=== PATIENT | male | born 1930 | race Caucasian/White ===

== ENCOUNTER → 2016-12-21 | Outpatient (CLI) | payer OTHER ==
[~2016-12-21] MED LIST: ASPCH81 PO; ATOR10TA82 PO; CLR10 PO; ENAL10TA88 PO; GLC500 PO; MULT-506 PO; VITA400C15 PO
[2016-12-21 13:17] LABS: BASO % 0.4 %; BASO ABS # 0.04 K/uL (0-0.2); COMPLETE YES; EOS % 3.5 %; HEMATOCRIT 44.1 % (42-52); IG% 0.9 %; LYMPH % 15.7 %; LYMPH ABS # 1.45 K/uL (1.2-3.4); MEAN CELL VOLUME 96.3 fL (80-100); MEAN CORPUSCULAR HEMOGLOBIN 31.4 pg (25-34); MEAN CORPUSCULAR HGB CONC 32.7 g/dl (32-36); MEAN PLATELET VOLUME 9.9 fL (7.4-10.4); MONO % 11.5 %; PLATELET COUNT 284 K/uL (130-400); RED BLOOD COUNT 4.58 M/uL (4.7-6.1); WHITE BLOOD COUNT 9.22 K/uL (4.8-10.8)
[2016-12-21 13:26] LABS: ALT/SGPT 29 U/L (12-78); BLOOD UREA NITROGEN 17 mg/dl (7-18); BUN/CREATININE RATIO 16.9 (10-20); CARBON DIOXIDE 33 mmol/L (21-32); CHLORIDE 99 mmol/L (98-107); GLUCOSE 139 mg/dl (70-99); POTASSIUM 4.1 mmol/L (3.5-5.1); SODIUM 139 mmol/L (136-145)
[2016-12-21 13:30] LABS: ALB/GLOB RATIO 1.1 (0.9-2); ALKALINE PHOSPHATASE 103 U/L (45-117); AST/SGOT 16 U/L (15-37)
[2016-12-21 13:32] LABS: ESTIMATED AVERAGE GLUCOSE 148 mg/dl; HA1C FLAG Normal (Normal)
[2016-12-21 13:39] LABS: CALCIUM 9.6 mg/dl (8.5-10.1)
== END | disposition home or self-care (01) ==
LOC: C.LABBFT 08:24
PROVIDERS: ATTEND Internal Medicine
DX: E11.9 Type 2 diabetes mellitus without complications (principal); G40.909 Epilepsy, unspecified, not intractable, without status epilepticus

== ENCOUNTER → 2017-06-27 | Outpatient (CLI) | payer OTHER ==
[2017-06-27 12:15] LABS: BASO % 0.3 %; BASO ABS # 0.03 K/uL (0-0.2); COMPLETE YES; EOS % 3.6 %; HEMATOCRIT 42.2 % (42-52); IG% 0.6 %; LYMPH % 13.1 %; LYMPH ABS # 1.24 K/uL (1.2-3.4); MEAN CELL VOLUME 96.6 fL (80-100); MEAN CORPUSCULAR HGB CONC 33.2 g/dl (32-36); MEAN PLATELET VOLUME 9.9 fL (7.4-10.4); MONO % 12.5 %; NEUT % 69.9 %; PLATELET COUNT 270 K/uL (130-400); RED BLOOD COUNT 4.37 M/uL (4.7-6.1); WHITE BLOOD COUNT 9.45 K/uL (4.8-10.8)
[2017-06-27 12:30] LABS: ESTIMATED AVERAGE GLUCOSE 166 mg/dl; HA1C FLAG Normal (Normal)
[2017-06-27 12:40] LABS: ALT/SGPT 34 U/L (12-78); AST/SGOT 15 U/L (15-37); BLOOD UREA NITROGEN 15 mg/dl (7-18); BUN/CREATININE RATIO 14.7 (10-20); CALCIUM 8.8 mg/dl (8.5-10.1); CARBON DIOXIDE 31 mmol/L (21-32); CHLORIDE 98 mmol/L (98-107); CREATININE 1.02 mg/dl (0.60-1.40); GLUCOSE 161 mg/dl (70-99); SODIUM 138 mmol/L (136-145)
[2017-06-27 12:51] LABS: ALB/GLOB RATIO 0.9 (0.9-2); ALKALINE PHOSPHATASE 98 U/L (45-117); CHOLESTEROL 184 mg/dl (0-200); CHOLESTEROL/HDL RATIO 3.3; HDL CHOLESTEROL 55 mg/dl; LDL CHOLESTEROL CALCULATED 97 mg/dl; TRIGLYCERIDES 160 mg/dl (0-150); VERY LOW DENSITY LIPOPROT CALC 32 mg/dl
== END | disposition home or self-care (01) ==
LOC: C.LABBFT 08:22
PROVIDERS: ATTEND Internal Medicine
DX: G40.909 Epilepsy, unspecified, not intractable, without status epilepticus (principal); E11.9 Type 2 diabetes mellitus without complications; E78.00 Pure hypercholesterolemia, unspecified

== ENCOUNTER → 2017-07-02 | Outpatient (CLI) | payer OTHER ==
[2017-07-02 17:55] LABS: URINE APPEARANCE CLEAR (CLEAR); URINE COLOR DK YELLOW; URINE EPITHELIAL CELL AUTO >30 /lpf (0-5); URINE NITRITE NEG (NEG); URINE SPECIFIC GRAVITY 1.023 (1.000-1.030); UROBILINOGEN NEG (NEG); ZZUR CULT IF INDIC CLEAN CATCH NO
[2017-07-02 18:00] LABS: MANUAL MICROSCOPIC REQUIRED? NO; REVIEW REQ? NO; URINE BILIRUBIN NEG (NEG)
[2017-07-02 18:19] LABS: RATIO 34.7 mcg/mg (0-30.0)
== END | disposition home or self-care (01) ==
LOC: C.LABSPEC 13:33
PROVIDERS: ATTEND Internal Medicine
DX: E11.9 Type 2 diabetes mellitus without complications (principal)

== ENCOUNTER → 2017-07-04 | Outpatient (CLI) | payer OTHER ==
[2017-07-04 12:48] LABS: MANUAL MICROSCOPIC REQUIRED? NO; REVIEW REQ? NO; URINE APPEARANCE CLEAR (CLEAR); URINE BILIRUBIN NEG (NEG); URINE COLOR YELLOW; URINE NITRITE NEG (NEG); URINE SPECIFIC GRAVITY 1.012 (1.000-1.030); UROBILINOGEN NEG (NEG)
== END | disposition home or self-care (01) ==
LOC: C.LABBFT 09:21
PROVIDERS: ATTEND Physician Assistant Medical
DX: N39.0 Urinary tract infection, site not specified (principal)

== ENCOUNTER → 2017-12-25 | Outpatient (CLI) | payer OTHER ==
[2017-12-25 12:32] LABS: BASO % 0.3 %; BASO ABS # 0.03 K/uL (0-0.2); EOS % 3.2 %; EOS ABS # 0.28 K/uL (0-0.5); HEMATOCRIT 42.4 % (42-52); HEMOGLOBIN 14.8 g/dL (14.0-18.0); IG# 0.04 K/uL (0.00-0.02); LYMPH % 16.5 %; LYMPH ABS # 1.44 K/uL (1.2-3.4); MEAN CELL VOLUME 94.2 fL (80-100); MEAN CORPUSCULAR HEMOGLOBIN 32.9 pg (25-34); MEAN CORPUSCULAR HGB CONC 34.9 g/dl (32-36); MONO % 10.9 %; MONO ABS # 0.95 K/uL (0.11-0.59); NEUT % 68.6 %; PLATELET COUNT 271 K/uL (130-400); RED CELL DISTRIBUTION WIDTH CV 13.1 % (11.5-14.5); WHITE BLOOD COUNT 8.74 K/uL (4.8-10.8)
[2017-12-25 12:56] LABS: HEMOGLOBIN A1C 7.9 % (4.5-5.6)
[2017-12-25 13:02] LABS: ALBUMIN 3.7 gm/dl (3.4-5.0); ALT/SGPT 29 U/L (12-78); AST/SGOT 16 U/L (15-37); BLOOD UREA NITROGEN 16 mg/dl (7-18); CALCIUM 8.7 mg/dl (8.5-10.1); CARBON DIOXIDE 34 mmol/L (21-32); CREATININE 1.05 mg/dl (0.60-1.40); GLUCOSE 165 mg/dl (70-99); SODIUM 135 mmol/L (136-145)
[2017-12-25 13:05] LABS: ALKALINE PHOSPHATASE 93 U/L (45-117); TOTAL PROTEIN 7.5 gm/dl (6.4-8.2)
== END | disposition home or self-care (01) ==
LOC: C.LABBFT 08:13
PROVIDERS: ATTEND Internal Medicine
DX: G40.909 Epilepsy, unspecified, not intractable, without status epilepticus (principal); E11.9 Type 2 diabetes mellitus without complications

== ENCOUNTER → 2018-03-07 | Outpatient (CLI) | payer OTHER ==
[~2018-03-07] MED LIST changes: -ASPCH81 PO; +ASPCH81X PO; +DILT-115 PO; +DLN100 PO; +DPKSR250 PO; +DVN/160 PO; -ENAL10TA88 PO; +ESCI1TAB6 PO; +HYDR12.55 PO; +NITR1CAP33 PO; +QUET1TAB30 PO; -VITA400C15 PO; +VITA400C49 PO
[2018-03-07 17:42] LABS: BLOOD UREA NITROGEN 13 mg/dl (7-18); CALCIUM 8.8 mg/dl (8.5-10.1); CARBON DIOXIDE 28 mmol/L (21-32); CREATININE 1.03 mg/dl (0.60-1.40); GLUCOSE 144 mg/dl (70-99); POTASSIUM 3.7 mmol/L (3.5-5.1); SODIUM 137 mmol/L (136-145)
[2018-03-07 17:44] LABS: PHENYTOIN (DILANTIN) 11.4 mcg/mL (10-20)
== END | disposition home or self-care (01) ==
LOC: C.LABBFT 11:52
PROVIDERS: ATTEND Internal Medicine
DX: G40.909 Epilepsy, unspecified, not intractable, without status epilepticus (principal)

== ENCOUNTER 2018-10-08 20:46 | Inpatient (IN) ==
[2018-10-08 21:46] LABS: Appearance Urine Cloudy (Clear); Bacteria Urine Automated Negative (Negative); Bilirubin Urine Negative (Negative); Color Urine Dark Yellow; Epithelial Cell Urine Auto >30 /lpf (0-5); Glucose Urine UA Negative (Negative); Ketones Urine Trace (Negative); Leukocyte Esterase Urine Trace (Negative); Nitrite Urine Negative (Negative); Specific Gravity Urine 1.019 (1.000-1.030); Urobilinogen Urine Negative (Negative)
[2018-10-08] MEDS: SODIUM CHLORIDE 0.9% 500 ML IV SCH (21:50)
[2018-10-08 22:07] LABS: Albumin Level 2.6 gm/dl (3.4-5.0); BUN Creatinine Ratio 21.7 (10-20); Bilirubin,Total 0.3 mg/dl (0.2-1); Calcium 8.7 mg/dl (8.5-10.1); Creatinine Clr Calc Pharmacy 54.7 ml/min; Est GFR (African American) 81.6; Est GFR (Non-African American) 70.4; Total Protein 7.2 gm/dl (6.4-8.2)
[2018-10-08 22:12] LABS: Mean Corpuscular Hgb Conc 33.1 g/dL (32-36); Mean Platelet Volume 9.9 fL (7.4-10.4); Platelet Count 383 K/uL (130-400)
[2018-10-08 22:12] LABS: Protein Urine Negative (Negative)
[2018-10-08 22:13] LABS: Basophils # (auto) 0.05 K/uL (0-0.2); Basophils % (auto) 0.2 %; Eosinophils # (auto) 0.85 K/uL (0-0.5); Eosinophils % (auto) 2.7 %; Hematocrit (blood only) 38.4 % (42-52); Hemoglobin 12.7 g/dL (14.0-18.0); Immature Granulocytes # (auto) 0.39 K/uL (0.00-0.02); Immature Granulocytes % (auto) 1.3 %; Lymphocytes # (auto) 0.92 K/uL (1.2-3.4); Mean Corpuscular Volume 96.5 fL (80-100); Monocytes # (auto) 2.86 K/uL (0.11-0.59); Monocytes % (auto) 9.2 %; Neutrophils # (auto) 25.86 K/uL (1.4-6.5); Neutrophils % (auto) 83.6 %; RDW Coefficient of Variation 13.9 % (11.5-14.5); RDW Standard Deviation 48.1 fL (36.4-46.3); Red Blood Count 3.98 M/uL (4.7-6.1); White Blood Count 30.93 K/uL (4.8-10.8)
[2018-10-08 22:14] LABS: Potassium 4.1 mmol/L (3.5-5.1)
[2018-10-08 22:35] LABS: Bilirubin Direct 0.1 mg/dl (0-0.2)
[2018-10-08 22:42] LABS: Influenza A virus by PCR Neg for Influ A (Neg); Influenza B virus by PCR Neg for Influ B (Neg)
[2018-10-08 22:50] LABS: Base Excess VBG 7.4 mEq/L; Oxygen Saturation VBG 80.5 %; pH VBG 7.44 (7.36-7.41)
[2018-10-08] MEDS ORDERED: VANCOMYCIN HCL 1,000 MG/270 ML BAG IV STA (23:27)
[2018-10-08] MEDS ORDERED: PIPERACILLIN/TAZOBACTAM 4.5 GM/120 ML BAG IV ONE (23:27)
[2018-10-08] MEDS ORDERED: VANCOMYCIN CONSULT ACTIVE PRN (23:27)
--- NOTE | 2018-10-09 00:07 | Emergency Department Note ---
Entered by Jazzmine Syed acting as a scribe for History of Present Illness General Chief complaint: Shortness of Breath/Dyspnea Stated complaint: SOB, Time Seen by Provider: 10/08/18 20:47 Source: patient and EMS History of Present Illness Onset (ago): hour(s) (today ) Location: chest Pain Consistency: + other (persistent ) Quality: + other (shortness of breath) Associated symptoms: + fever/chills; no chest pain Treatments prior to arrival: other (tylenol ) The patient is a 88 year old male who presents to the Emergency Room with complaints of persistent shortness of breath that began today. Per EMS, the patient had a fever today of 100.5. EMS states that the patient took Tylenol. The patient denies chest pain. The patient's history and physical are limited secondary to dementia. Home Medications Home Medications Medication Instructions Recorded Confirmed Type aspirin [Aspir-81] 81 mg PO QAM 06/21/18 10/09/18 History atorvastatin 40 mg PO HS 06/21/18 10/09/18 History diltiazem HCl 240 mg PO QAM 06/21/18 10/09/18 History hydrochlorothiazide 12.5 mg PO QAM 06/21/18 10/09/18 History loratadine 10 mg PO QAM 06/21/18 10/09/18 History nitrofurantoin macrocrystal 50 mg PO QPM 06/21/18 10/09/18 History escitalopram oxalate [Lexapro] 10 mg PO QAM 08/19/18 10/09/18 History losartan 100 mg PO QAM 08/19/18 10/09/18 History metformin 1,000 mg PO BID 08/19/18 10/09/18 History phenytoin sodium extended 100 mg PO TID 08/19/18 10/09/18 History quetiapine 50 mg PO HS 08/19/18 10/09/18 History vitamin E 400 unit PO DAILY 08/19/18 10/09/18 History acetaminophen [Acetaminophen Extra 500 mg PO Q4 PRN MDD 6 tablets 08/20/1809/27 History Strength] daily multivitamin with minerals 1 tab PO QAM 08/20/18 10/09/18 History divalproex 500 mg PO BID 09/27/18 10/09/18 History amoxicillin-pot clavulanate 1 tab PO BID #4 tab 10/02/18 10/09/18 Rx [Augmentin] diclofenac sodium [Voltaren] 1 % EXT QID PRN #100 gm 10/02/18 10/09/18 Rx Allergies Allergy/AdvReac Type Severity Reaction Status Date / Time No Known Allergies Allergy Unknown NONE KNOWN Verified 09/27/18 12:38 Past Med/Surg History Social History marital status: Current Living Situation: Spouse current occupational status: retired Feels Safe at Home: Yes Smoking Status: Former smoker Second Hand Exposure: No Hx Alcohol Use: No Hx Substance Use: No Beliefs That Will Affect Care: None Preferred Language: Estonian Review of Systems The patient's history and physical are limited secondary to dementia. Physical Exam Vital Signs Vital Signs - 24 hr 10/08/18 20:52 10/08/18 21:00 10/08/18 21:47 Temperature 37.2 C Temperature Source Oral Sepsis Recent Fever Within 48 Hours Yes Sepsis New/Unexplained Change in Mental Status No Sepsis Action Taken by Nursing Physician Notified Pulse Rate 111 H 113 H Pulse Rate [Apical] 107 H Pulse Rhythm Regular Pulse Strength Normal Respiratory Rate 26 H 22 28 H Respiratory Effort / Characteristics Spontaneous Accessory Muscle Use Labored Respiratory Depth Retractive Respiratory Pattern Regular Blood Pressure 142/84 H 142/84 H Blood Pressure [Left Arm] 159/92 H Blood Pressure Mean 103 103 Blood Pressure Mean [Left Arm] 114 Blood Pressure Position Sitting Pulse Oximetry 96 94 Oxygen Delivery Method Nasal Cannula Nasal Cannula Oxygen Flow Rate 3 3 10/08/18 21:48 10/08/18 22:00 10/08/18 22:30 Temperature Temperature Source Sepsis Recent Fever Within 48 Hours Sepsis New/Unexplained Change in Mental Status Sepsis Action Taken by Nursing Pulse Rate 108 H 107 H 104 H Pulse Rate [Apical] Pulse Rhythm Pulse Strength Respiratory Rate 28 H 19 21 Respiratory Effort / Characteristics Respiratory Depth Respiratory Pattern Blood Pressure 159/92 H 178/74 H 154/78 H Blood Pressure [Left Arm] Blood Pressure Mean 114 108 103 Blood Pressure Mean [Left Arm] Blood Pressure Position Pulse Oximetry 93 92 92 Oxygen Delivery Method Room Air Room Air Room Air Oxygen Flow Rate 10/08/18 23:00 Temperature Temperature Source Sepsis Recent Fever Within 48 Hours Sepsis New/Unexplained Change in Mental Status Sepsis Action Taken by Nursing Pulse Rate 107 H Pulse Rate [Apical] Pulse Rhythm Pulse Strength Respiratory Rate 27 H Respiratory Effort / Characteristics Respiratory Depth Respiratory Pattern Blood Pressure 156/83 H Blood Pressure [Left Arm] Blood Pressure Mean 107 Blood Pressure Mean [Left Arm] Blood Pressure Position Pulse Oximetry 94 Oxygen Delivery Method Room Air Oxygen Flow Rate GENERAL: Appears well-developed and well-nourished. Does not appear distressed. HENT: Exam performed. Head: Normocephalic and atraumatic. Right Ear: External ear normal. No mastoid tenderness. Left Ear: External ear normal. No mastoid tenderness. Mouth/Throat: The oropharynx is clear and moist. No trismus in the jaw. No dental abscesses or uvula swelling. No oropharyngeal exudate or tonsillar abscesses. EYES: Conjunctivae and EOM are normal. Pupils are equal, round, and reactive to light. Right eye exhibits no discharge. Left eye exhibits no discharge. No scleral icterus. NECK: Normal range of motion. Neck supple. No JVD present. No spinous process tenderness present. No carotid bruit present. No rigidity. No tracheal deviation and normal range of motion present. No Brudzinski's sign and no Kernig 's sign noted. CV: Normal rate, regular rhythm, normal heart sounds and intact distal pulses. There is no peripheral edema. Palpable radial pulses bue. PULM/CHEST: Rhonchi bilaterally. Chest Wall: Patient exhibits no tenderness. ABD: The abdomen is soft. Bowel sounds are normal. There is no distension. No mass is present. There is no tenderness. There is no rebound, no guarding, no Callahan's sign and no tenderness at McBurney's point. Rovsig negative MUSC/SKEL: Normal range of motion. There is no peripheral edema, tenderness or deformity. LYMPH: No cervical adenopathy. NEURO: Patient is alert and oriented x1. Normal strength. No cranial nerve deficit or sensory deficit. Coordination and gait normal. cerbellar tests wnl. SKIN: Skin is warm and dry. Patient is not diaphoretic. Course 2050: Past medical records reviewed. The patient was evaluated in room A4B, and a complete history and physical examination were performed.EMR Reviewed: The patient was discharged one week ago for multifocal pneumonia. He has a history of diabetes, right-sided pleural effusion, aspiration pneumonia, hypertension, hyperlipidemia, stroke, and dementia. The patient is on 2L of oxygen at all times. 2341: The patient's labs show a leukocytosis of 30.9 which is elevated from 12.6 when the patient was discharged on 10/02. The patient's lactic acid was elevated at 3. The patient's chest x-ray showed bilateral infiltrates which are concerning for multifocal pneumonia. Given the patient's recent admission, reported fever at home, labs, and imaging, the patient will be admitted for HCAP , and Dr. Serra-[facility] Hospitalist will further evaluate. He will be given IV Zosyn and IV Vanco. Administered Medications Sodium Chloride (Nss) 500 mls @ 125 mls/hr IV .Q4H VOLODYMYR Stop: 11/07/18 20:59 Last Admin: 10/08/18 21:50 Dose: 125 mls/hr Piperacillin Sod/Tazobactam Sod (Zosyn) 4.5 gm in 120 mls @ 30 mls/hr IV NOW ONE Stop: 10/09/18 03:26 Last Admin: 10/08/18 23:36 Dose: 30 mls/hr Medical Decision Making Medical Records Attestation: I reviewed the patient's medical records. Home Medications Current Medication List: was personally reviewed by me Laboratory Data Attestation: I reviewed the patient's lab results. Result diagrams: 10/08/18 20:56 10/08/18 20:56 Lab Results 10/08/18 10/08/18 10/08/18 Range/Units 20:56 20:56 21:13 WBC 30.93 H* (4.8-10.8) K/uL RBC 3.98 L (4.7-6.1) M/uL Hgb 12.7 L (14.0-18.0) g/dL Hct 38.4 L (42-52) % MCV 96.5 (80-100) fL MCH 31.9 (25-34) pg MCHC 33.1 (32-36) g/dL RDW Std Deviation 48.1 H (36.4-46.3) fL RDW Coeff of Rae 13.9 (11.5-14.5) % Plt Count 383 (130-400) K/uL MPV 9.9 (7.4-10.4) fL Immature Gran % (Auto) 1.3 % Neut % (Auto) 83.6 % Lymph % (Auto) 3.0 % [place] % (Auto) 9.2 % Eos % (Auto) 2.7 % Baso % (Auto) 0.2 % Immature Gran # (Auto) 0.39 H (0.00-0.02) K/uL Neut # (Auto) 25.86 H (1.4-6.5) K/uL Lymph # (Auto) 0.92 L (1.2-3.4) K/uL [place] # (Auto) 2.86 H (0.11-0.59) K/uL Eos # (Auto) 0.85 H (0-0.5) K/uL Baso # (Auto) 0.05 (0-0.2) K/uL VBG pH (7.36-7.41) VBG pCO2 (38-50) mmHg VBG pO2 mmHg VBG HCO3 mmol/L VBG O2 Saturation % VBG Base Excess mEq/L Barometric Pressure mm/Hg Sodium 137 (136-145) mmol/L Potassium 4.1 (3.5-5.1) mmol/L Chloride 97 L (98-107) mmol/L Carbon Dioxide 33 H (21-32) mmol/L Anion Gap 7.0 (3-11) BUN 21 H (7-18) mg/dl Creatinine 0.97 (0.6-1.4) mg/dl Est Cr Clr Drug Dosing 54.7 ml/min Est GFR ( Amer) 81.6 Est GFR (Non-Af Amer) 70.4 BUN/Creatinine Ratio 21.7 H (10-20) Glucose 187 H (70-99) mg/dl Lactate (0.4-2.0) mmol/L Calcium 8.7 (8.5-10.1) mg/dl Total Bilirubin 0.3 (0.2-1) mg/dl Direct Bilirubin 0.1 (0-0.2) mg/dl AST 25 (15-37) U/L ALT 58 (12-78) U/L Alkaline Phosphatase 77 (45-117) U/L Total Protein 7.2 (6.4-8.2) gm/dl Albumin 2.6 L (3.4-5.0) gm/dl Urine Color Dark Yellow Urine Appearance Cloudy H (Clear) Urine pH 8.0 H (4.5-7.5) Ur Specific [place] 1.019 (1.000-1.030) Urine Protein Negative (Negative) Urine Glucose (UA) Negative (Negative) Urine Ketones Trace H (Negative) Urine Blood Negative (Negative) Urine Nitrite Negative (Negative) Urine Bilirubin Negative (Negative) Urine Urobilinogen Negative (Negative) Ur Leukocyte Esterase Trace H (Negative) Urine WBC (Auto) 10-30 H (0-5) /hpf Urine RBC (Auto) 5-10 H (0-4) /hpf U Hyaline Cast (Auto) 1-5 (0-5) /lpf U Epithel Cells (Auto) >30 H (0-5) /lpf Urine Bacteria (Auto) Negative (Negative) Influenza Type A (PCR) (Neg) Influenza Type B (PCR) (Neg) 10/08/18 10/08/18 10/08/18 Range/Units 21:48 22:36 22:36 WBC (4.8-10.8) K/uL RBC (4.7-6.1) M/uL Hgb (14.0-18.0) g/dL Hct (42-52) % MCV (80-100) fL MCH (25-34) pg MCHC (32-36) g/dL RDW Std Deviation (36.4-46.3) fL RDW Coeff of Rae (11.5-14.5) % Plt Count (130-400) K/uL MPV (7.4-10.4) fL Immature Gran % (Auto) % Neut % (Auto) % Lymph % (Auto) % [place] % (Auto) % Eos % (Auto) % Baso % (Auto) % Immature Gran # (Auto) (0.00-0.02) K/uL Neut # (Auto) (1.4-6.5) K/uL Lymph # (Auto) (1.2-3.4) K/uL [place] # (Auto) (0.11-0.59) K/uL Eos # (Auto) (0-0.5) K/uL Baso # (Auto) (0-0.2) K/uL VBG pH 7.44 H (7.36-7.41) VBG pCO2 50 (38-50) mmHg VBG pO2 46 mmHg VBG HCO3 33 mmol/L VBG O2 Saturation 80.5 % VBG Base Excess 7.4 mEq/L Barometric Pressure 744.3 mm/Hg Sodium (136-145) mmol/L Potassium (3.5-5.1) mmol/L Chloride (98-107) mmol/L Carbon Dioxide (21-32) mmol/L Anion Gap (3-11) BUN (7-18) mg/dl Creatinine (0.6-1.4) mg/dl Est Cr Clr Drug Dosing ml/min Est GFR ( Amer) Est GFR (Non-Af Amer) BUN/Creatinine Ratio (10-20) Glucose (70-99) mg/dl Lactate 3.0 H* (0.4-2.0) mmol/L Calcium (8.5-10.1) mg/dl Total Bilirubin (0.2-1) mg/dl Direct Bilirubin (0-0.2) mg/dl AST (15-37) U/L ALT (12-78) U/L Alkaline Phosphatase (45-117) U/L Total Protein (6.4-8.2) gm/dl Albumin (3.4-5.0) gm/dl Urine Color Urine Appearance (Clear) Urine pH (4.5-7.5) Ur Specific [place] (1.000-1.030) Urine Protein (Negative) Urine Glucose (UA) (Negative) Urine Ketones (Negative) Urine Blood (Negative) Urine Nitrite (Negative) Urine Bilirubin (Negative) Urine Urobilinogen (Negative) Ur Leukocyte Esterase (Negative) Urine WBC (Auto) (0-5) /hpf Urine RBC (Auto) (0-4) /hpf U Hyaline Cast (Auto) (0-5) /lpf U Epithel Cells (Auto) (0-5) /lpf Urine Bacteria (Auto) (Negative) Influenza Type A (PCR) Neg for Influ A (Neg) Influenza Type B (PCR) Neg for Influ B (Neg) Imaging Data Attestation: I personally reviewed and interpreted this imaging study as follows : My Impression: CHEST X-RAY: Bilateral pulmonary infiltrates. No cardiomegaly. No free air under the diaphragm. No acute fracture of the bony structures. ECG Data Attestation: I personally reviewed and interpreted this ECG as follows: Indication: SOB/dyspnea Rate (beats per minute): 110 Rhythm: sinus tachycardia Findings: + other (MO, QRS, QTC intervals within normal limits ); no ST depression and no ST elevation Blood Pressure Blood Pressure Findings: Elevated blood pressure Blood Pressure Disposition: further management by hospitalist MARIELOS Narrative 2050: Past medical records reviewed. The patient was evaluated in room A4B, and a complete history and physical examination were performed.EMR Reviewed: The patient was discharged one week ago for multifocal pneumonia. He has a history of diabetes, right-sided pleural effusion, aspiration pneumonia, hypertension, hyperlipidemia, stroke, and dementia. The patient is on 2L of oxygen at all times. 2340: The patient's labs show a leukocytosis of 30.9 which is elevated from 12.6 when the patient was discharged on 10/02. The patient's lactic acid was elevated at 3. The patient's chest x-ray showed bilateral infiltrates which are concerning for multifocal pneumonia. Given the patient's recent admission, reported fever at home, labs, and imaging, the patient will be admitted for HCAP , and Dr. Serra-[facility] Hospitalist will further evaluate. He will be given IV Zosyn and IV Vanco. Impression & Plan HCAP (healthcare-associated pneumonia), Sepsis Discharge Plan Visit Data Chief Complaint: Shortness of Breath/Dyspnea Stated Complaint: SOB, ED Provider: Huey Ventura Discharge Problem: HCAP (healthcare-associated pneumonia), Sepsis Patient Disposition: Being Evaluated by Hospitalist Forms Stand Alone Forms: [facility] [employer] Prescriptions Prescriptions: No Action atorvastatin 40 mg tablet 40 mg PO HS RF: 0 nitrofurantoin macrocrystal 50 mg capsule 50 mg PO QPM RF: 0 diltiazem HCl 240 mg capsule,extended release 24hr 240 mg PO QAM RF: 0 aspirin [Aspir-81] 81 mg Tablet,Delayed Release (Dr/Ec) 81 mg PO QAM RF: 0 hydrochlorothiazide 12.5 mg capsule 12.5 mg PO QAM RF: 0 loratadine 10 mg Tablet 10 mg PO QAM RF: 0 quetiapine 25 mg tablet 50 mg PO HS RF: 0 vitamin E 400 unit Capsule 400 unit PO DAILY RF: 0 escitalopram oxalate [Lexapro] 10 mg Tablet 10 mg PO QAM RF: 0 phenytoin sodium extended 100 mg capsule 100 mg PO TID RF: 0 losartan 100 mg tablet 100 mg PO QAM RF: 0 metformin 500 mg tablet 1,000 mg PO BID RF: 0 acetaminophen [Acetaminophen Extra Strength] 500 mg Tablet 500 mg PO Q4 MDD 6 tablets daily PRN (Reason: Fever Or Pain) RF: 0 multivitamin with minerals Tablet 1 tab PO QAM RF: 0 divalproex 250 mg tablet extended release 24 hr 500 mg PO BID RF: 0 diclofenac sodium [Voltaren] 1 % Gel 1 % EXT QID PRN (Reason: shoulder pain) Qty: 100 RF: 0 prednisone 10 mg tablet 20 mg PO DAILY Qty: 4 RF: 0 amoxicillin-pot clavulanate [Augmentin] 875-125 mg tablet 1 tab PO BID Qty: 4 RF: 0 Referrals Referrals: Werner Beck MD [Primary Care Provider] - The scribe's documentation has been prepared under my direction and personally reviewed by me in its entirety. I confirm that the note above accurately reflects all work, treatment, procedures, and medical decision making performed by me.
[2018-10-09] MEDS ORDERED: DICLOFENAC SOD 1% GEL 100 GM TUBE EXT PRN (02:14)
--- NOTE | 2018-10-09 03:07 | History & Physical Report ---
Date of Service October 09, 2018 Assessment & Plan (1) HCAP (healthcare-associated pneumonia): HCAP/Aspiration pna/elevated lactate --Started on cefipime and flagyl --Await Blood cultures --Repeat lactate --Nebs, oxygen support (uses 2L at home, currently 3LNC) --solumedrol 40 BID HTN -Cont losartan, dilt, HCTZ h/o CVA -Loss of peripheral vision in L eye -cont ASA, statin T2DM -Placed on ISS Seizure disorder -Per report, has not had seizure since August admission -Cont home meds (dilantin/depakote) Anxiety/OCD -Cont home meds OA -Cont prn tylenol, voltaren gel Chronic UTI -Cont macrobid prophylaxis DVTP: heparin BID CODE: full Dispo: admit to med/surg for further evaluation (2) Mild dementia: (3) Anxiety: (4) History of CVA (cerebrovascular accident): (5) Seizure disorder: (6) Elevated lactic acid level: (7) Chronic UTI: (8) DM type 2 (diabetes mellitus, type 2): (9) Hyperlipidemia: (10) HTN (hypertension): (11) Aspiration pneumonia: History of Present Illness Chief Complaint: cough, fever Primary Care Provider: Reno Beck MD Pt is a pleasant 88yoM with PMH aspiration pna, dementia, CVA, DM, HTN, HLD, Anxiety, seizure DO, chronic UTI who presents with fevers, chills, cough, runny nose for the past few days. HPI limited to dementia, no family present. He denies any urinary symptoms and states he has just been "unwell" the past few days. Patient has been admitted numerous times for aspiration pneumonia in the past 4 months. He wears 2L O2 throughout the day. Allergies Allergy/AdvReac Type Severity Reaction Status Date / Time No Known Allergies Allergy Unknown NONE KNOWN Verified 09/27/18 12:38 Home Medications Home Medications Medication Instructions Recorded Confirmed Type aspirin [Aspir-81] 81 mg PO QAM 06/21/18 10/09/18 History atorvastatin 40 mg PO HS 06/21/18 10/09/18 History diltiazem HCl 240 mg PO QAM 06/21/18 10/09/18 History hydrochlorothiazide 12.5 mg PO QAM 06/21/18 10/09/18 History loratadine 10 mg PO QAM 06/21/18 10/09/18 History nitrofurantoin macrocrystal 50 mg PO QPM 06/21/18 10/09/18 History escitalopram oxalate [Lexapro] 10 mg PO QAM 08/19/18 10/09/18 History losartan 100 mg PO QAM 08/19/18 10/09/18 History metformin 1,000 mg PO BID 08/19/18 10/09/18 History phenytoin sodium extended 100 mg PO TID 08/19/18 10/09/18 History quetiapine 50 mg PO HS 08/19/18 10/09/18 History vitamin E 400 unit PO DAILY 08/19/18 10/09/18 History acetaminophen [Acetaminophen Extra 500 mg PO Q4 PRN MDD 6 tablets 08/20/1810/09 History Strength] daily multivitamin with minerals 1 tab PO QAM 08/20/18 10/09/18 History divalproex 500 mg PO BID 09/27/18 10/09/18 History amoxicillin-pot clavulanate 1 tab PO BID #4 tab 10/02/18 10/09/18 Rx [Augmentin] diclofenac sodium [Voltaren] 1 % EXT QID PRN #100 gm 10/02/18 10/09/18 Rx Past Med/Surg History Medical History HCAP (healthcare-associated pneumonia) Complex partial seizure Insomnia Mild dementia Anxiety Anemia Acute hyperglycemia (Acute) Physical deconditioning History of CVA (cerebrovascular accident) Chronic respiratory failure with hypoxia (Chronic) Essential hypertension (Chronic) Seizure disorder (Chronic) Elevated WBC count (Acute) Elevated lactic acid level (Acute) Sepsis (Acute) Pleural effusion (Chronic) Metabolic encephalopathy Chronic UTI DM type 2 (diabetes mellitus, type 2) (Chronic) Hypoxia (Acute) Weakness (Acute) Chronic UTI (Chronic) DM type 2 (diabetes mellitus, type 2) (Chronic) Dyslipidemia (Chronic) Pleural effusion, right (Chronic) Seizures (Chronic) Stroke (Resolved) Surgical History History of thoracentesis (Resolved) S/P thoracentesis Social History marital status: Current Living Situation: Spouse current occupational status: retired Feels Safe at Home: Yes Safety Concerns: Feels Safe At This Time Smoking Status: Former smoker Second Hand Exposure: No Hx Alcohol Use: No Hx Substance Use: No Beliefs That Will Affect Care: None Communication Ability: Effective Review of Systems Unobtainable due to cognitive status Constitutional: + fever and + chills Respiratory: + cough Physical Exam 2 Vital Signs (Past 24 Hours): Last Vital Signs Temp 37.2 C 10/08/18 21:00 Pulse 100 H 10/09/18 02:30 Resp 19 10/09/18 02:30 BP 139/78 10/09/18 02:30 Pulse Ox 95 10/09/18 02:30 Constitutional: WD/WN, vitals as above + altered mental status; no acute distress and not ill appearing Eyes: PERRL, conjunctivae normal, anicteric sclerae ENMT: external ear and nose normal, oropharynx normal Neck: normal visual inspection Respiratory: Auscultation: + diminished lung sounds, + rhonchi and + wheezes ( end expiratory) Cardiovascular: RRR, no murmur, no edema Gastrointestinal (Abdomen): normal bowel sounds, soft, nontender, no hepatosplenomegaly Musculoskeletal: no cyanosis or clubbing, extremities motor strength 5/5 Skin: no rashes, warm and dry Neurologic: PERRL, EOMI, accommodation nl, no face palsy, no dysarthria Psychiatric: Orientation: alert Insight: + limited insight Results & Data Laboratory Results 10/08/18 10/08/18 10/08/18 Range/Units 22:36 22:36 21:48 WBC (4.8-10.8) K/uL RBC (4.7-6.1) M/uL Hgb (14.0-18.0) g/dL Hct (42-52) % MCV (80-100) fL MCH (25-34) pg MCHC (32-36) g/dL RDW Std Deviation (36.4-46.3) fL RDW Coeff of Rae (11.5-14.5) % Plt Count (130-400) K/uL MPV (7.4-10.4) fL Immature Gran % (Auto) % Neut % (Auto) % Lymph % (Auto) % [place] % (Auto) % Eos % (Auto) % Baso % (Auto) % Immature Gran # (Auto) (0.00-0.02) K/uL Neut # (Auto) (1.4-6.5) K/uL Lymph # (Auto) (1.2-3.4) K/uL [place] # (Auto) (0.11-0.59) K/uL Eos # (Auto) (0-0.5) K/uL Baso # (Auto) (0-0.2) K/uL VBG pH 7.44 H (7.36-7.41) VBG pCO2 50 (38-50) mmHg VBG pO2 46 mmHg VBG HCO3 33 mmol/L VBG O2 Saturation 80.5 % VBG Base Excess 7.4 mEq/L Barometric Pressure 744.3 mm/Hg Sodium (136-145) mmol/L Potassium (3.5-5.1) mmol/L Chloride (98-107) mmol/L Carbon Dioxide (21-32) mmol/L Anion Gap (3-11) BUN (7-18) mg/dl Creatinine (0.6-1.4) mg/dl Est Cr Clr Drug Dosing ml/min Est GFR ( Amer) Est GFR (Non-Af Amer) BUN/Creatinine Ratio (10-20) Glucose (70-99) mg/dl Lactate 3.0 H* (0.4-2.0) mmol/L Calcium (8.5-10.1) mg/dl Total Bilirubin (0.2-1) mg/dl Direct Bilirubin (0-0.2) mg/dl AST (15-37) U/L ALT (12-78) U/L Alkaline Phosphatase (45-117) U/L Total Protein (6.4-8.2) gm/dl Albumin (3.4-5.0) gm/dl Urine Color Urine Appearance (Clear) Urine pH (4.5-7.5) Ur Specific [place] (1.000-1.030) Urine Protein (Negative) Urine Glucose (UA) (Negative) Urine Ketones (Negative) Urine Blood (Negative) Urine Nitrite (Negative) Urine Bilirubin (Negative) Urine Urobilinogen (Negative) Ur Leukocyte Esterase (Negative) Urine WBC (Auto) (0-5) /hpf Urine RBC (Auto) (0-4) /hpf U Hyaline Cast (Auto) (0-5) /lpf U Epithel Cells (Auto) (0-5) /lpf Urine Bacteria (Auto) (Negative) Influenza Type A (PCR) Neg for Influ A (Neg) Influenza Type B (PCR) Neg for Influ B (Neg) 10/08/18 10/08/18 10/08/18 Range/Units 21:13 20:56 20:56 WBC 30.93 H* (4.8-10.8) K/uL RBC 3.98 L (4.7-6.1) M/uL Hgb 12.7 L (14.0-18.0) g/dL Hct 38.4 L (42-52) % MCV 96.5 (80-100) fL MCH 31.9 (25-34) pg MCHC 33.1 (32-36) g/dL RDW Std Deviation 48.1 H (36.4-46.3) fL RDW Coeff of Rae 13.9 (11.5-14.5) % Plt Count 383 (130-400) K/uL MPV 9.9 (7.4-10.4) fL Immature Gran % (Auto) 1.3 % Neut % (Auto) 83.6 % Lymph % (Auto) 3.0 % [place] % (Auto) 9.2 % Eos % (Auto) 2.7 % Baso % (Auto) 0.2 % Immature Gran # (Auto) 0.39 H (0.00-0.02) K/uL Neut # (Auto) 25.86 H (1.4-6.5) K/uL Lymph # (Auto) 0.92 L (1.2-3.4) K/uL [place] # (Auto) 2.86 H (0.11-0.59) K/uL Eos # (Auto) 0.85 H (0-0.5) K/uL Baso # (Auto) 0.05 (0-0.2) K/uL VBG pH (7.36-7.41) VBG pCO2 (38-50) mmHg VBG pO2 mmHg VBG HCO3 mmol/L VBG O2 Saturation % VBG Base Excess mEq/L Barometric Pressure mm/Hg Sodium 137 (136-145) mmol/L Potassium 4.1 (3.5-5.1) mmol/L Chloride 97 L (98-107) mmol/L Carbon Dioxide 33 H (21-32) mmol/L Anion Gap 7.0 (3-11) BUN 21 H (7-18) mg/dl Creatinine 0.97 (0.6-1.4) mg/dl Est Cr Clr Drug Dosing 54.7 ml/min Est GFR ( Amer) 81.6 Est GFR (Non-Af Amer) 70.4 BUN/Creatinine Ratio 21.7 H (10-20) Glucose 187 H (70-99) mg/dl Lactate (0.4-2.0) mmol/L Calcium 8.7 (8.5-10.1) mg/dl Total Bilirubin 0.3 (0.2-1) mg/dl Direct Bilirubin 0.1 (0-0.2) mg/dl AST 25 (15-37) U/L ALT 58 (12-78) U/L Alkaline Phosphatase 77 (45-117) U/L Total Protein 7.2 (6.4-8.2) gm/dl Albumin 2.6 L (3.4-5.0) gm/dl Urine Color Dark Yellow Urine Appearance Cloudy H (Clear) Urine pH 8.0 H (4.5-7.5) Ur Specific [place] 1.019 (1.000-1.030) Urine Protein Negative (Negative) Urine Glucose (UA) Negative (Negative) Urine Ketones Trace H (Negative) Urine Blood Negative (Negative) Urine Nitrite Negative (Negative) Urine Bilirubin Negative (Negative) Urine Urobilinogen Negative (Negative) Ur Leukocyte Esterase Trace H (Negative) Urine WBC (Auto) 10-30 H (0-5) /hpf Urine RBC (Auto) 5-10 H (0-4) /hpf U Hyaline Cast (Auto) 1-5 (0-5) /lpf U Epithel Cells (Auto) >30 H (0-5) /lpf Urine Bacteria (Auto) Negative (Negative) Influenza Type A (PCR) (Neg) Influenza Type B (PCR) (Neg) Medications Administered Current Inpatient Medications Aspirin (Ecotrin Ectab) 81 mg PO QAM VOLODYMYR Stop: 11/08/18 08:59 Atorvastatin Calcium (Lipitor) 40 mg PO HS VOLODYMYR Stop: 11/08/18 20:59 Diclofenac Sodium (Voltaren 1% Top) appln EXT QID PRN PRN Reason: shoulder pain Stop: 11/08/18 02:13 Diltiazem HCl (Cardizem Cd) 240 mg PO QAM [facility] Stop: 11/08/18 08:59 Divalproex Sodium (Depakote Extended Release) 500 mg PO BID [facility] [place] Stop: 11/08/18 08:59 Escitalopram Oxalate (Lexapro) 10 mg PO QAM [facility] [place] Stop: 11/08/18 08:59 Hydrochlorothiazide (Hctz) 12.5 mg PO QAM [facility] [place] Stop: 11/08/18 08:59 Sodium Chloride (Nss) 500 mls @ 125 mls/hr IV .Q4H [facility] Stop: 11/07/18 20:59 Last Infusion: 10/09/18 02:29 Dose: Infused Piperacillin Sod/Tazobactam Sod (Zosyn) 4.5 gm in 120 mls @ 30 mls/hr IV NOW ONE Stop: 10/09/18 03:26 Last Infusion: 10/09/18 00:23 Dose: Infused Loratadine (Claritin) 10 mg PO QAM [facility] Stop: 11/08/18 08:59 Losartan Potassium (Cozaar) 100 mg PO QAM [facility] [place] Stop: 11/08/18 08:59 Miscellaneous Information (Consult) 1 ea N/A UD PRN PRN Reason: Consult Stop: 11/07/18 23:26 Nitrofurantoin Macrocrystals (Macrodantin) 50 mg PO QPM [facility] [place] Stop: 10/14/18 20:59 Non-Formulary Medication (Multivitamin With Minerals [Multivitamin With Minerals ]) 1 tab PO QAM [facility] [place] Stop: 11/08/18 08:59 Phenytoin Sodium (Dilantin Er) 100 mg PO TID [facility] [place] Stop: 11/08/18 08:59 Quetiapine Fumarate (Seroquel) 50 mg PO HS [facility] Stop: 11/08/18 20:59 Vitamin E (Vitamin E) 400 units PO DAILY [facility] Stop: 11/08/18 08:59 Code Status & VTE Plan Code Status Full Supervising Physician Co-Signing Physician Notes Attending addendum: I have physically seen this patient, have supervised the medical residents activities, and agree with the H&P unless as otherwise noted. Assessment and Plan: Healthcare associated pneumonia due to recurrent aspiration of secretions-- Cefepime and Flagyl IV. Solu-Medrol 40 mg IV twice daily. Sputum Gram stain and culture. Duonebs every 4 hours while awake and every 2 hours when necessary. Patient has had multiple admissions over the past 2-3 months for the same process. Reassessment of her current living situation should be performed. Remainder of orders and notations as noted. Resident Activity Tracking Resident Involvement: Resident Care Provided Care Provided: Adult [facility] Medicine _ (1) DM type 2 (diabetes mellitus, type 2) Chronic kidney disease stage: Diabetes mellitus complication detail: Diabetes mellitus complication status: without complication Diabetes mellitus shelter insulin use: without wallpaper installer use Diabetes mellitus macular edema: Diabetic retinopathy severity: Laterality: Proliferative retinopathy type : Qualified Code(s): E11.9 - Type 2 diabetes mellitus without complications
[2018-10-09] MEDS ORDERED: POLYETHYLENE (MIRALAX) 17 GM PACK PO PRN (03:58)
[2018-10-09] MEDS ORDERED: ALUMINUM/MAGNESIUM SUSP 30 ML UDC PO PRN (03:58)
[2018-10-09] MEDS ORDERED: ACETAMINOPHEN 325 MG TAB PO PRN (03:58)
[2018-10-09] MEDS ORDERED: CARBOHYDRATES FOR HYPOGLYCEMIA PO PRN (03:58)
[2018-10-09] MEDS ORDERED: GLUCOSE 10 TABS/TUBE PO PRN (03:58)
[2018-10-09] MEDS ORDERED: GLUCOSE 40% GEL 15 GM TUBE PO PRN (03:58)
[2018-10-09] MEDS ORDERED: MAGNESIUM HYDROXIDE SUSP 30 ML UDC PO PRN (03:58)
[2018-10-09] MEDS ORDERED: DEXTROSE 50% 50 ML SYRINGE IV PRN (03:58)
[2018-10-09] MEDS ORDERED: GLUCAGON FOR INJ 1 MG VIAL SQ PRN (03:58)
[2018-10-09] MEDS ORDERED: metroNIDAZOLE 500 MG/100 ML BAG IV SCH (04:00)
[2018-10-09 04:34] LABS: Calcium 8.3 mg/dl (8.5-10.1); Creatinine Clr Calc Pharmacy 55.8 ml/min; Est GFR (African American) 83.7; Est GFR (Non-African American) 72.2; Potassium 4.2 mmol/L (3.5-5.1)
[2018-10-09 05:10] LABS: Hematocrit (blood only) 37.4 % (42-52); Hemoglobin 12.1 g/dL (14.0-18.0); Mean Corpuscular Hgb Conc 32.4 g/dL (32-36); Mean Corpuscular Volume 96.4 fL (80-100); Mean Platelet Volume 9.4 fL (7.4-10.4); Platelet Count 357 K/uL (130-400); RDW Coefficient of Variation 13.9 % (11.5-14.5); RDW Standard Deviation 48.6 fL (36.4-46.3); Red Blood Count 3.88 M/uL (4.7-6.1); White Blood Count 31.87 K/uL (4.8-10.8)
[2018-10-09 05:12] LABS: Basophils # (auto) 0.05 K/uL (0-0.2); Basophils % (auto) 0.2 %; Eosinophils # (auto) 0.42 K/uL (0-0.5); Eosinophils % (auto) 1.3 %; Immature Granulocytes # (auto) 0.35 K/uL (0.00-0.02); Immature Granulocytes % (auto) 1.1 %; Lymphocytes # (auto) 1.84 K/uL (1.2-3.4); Lymphocytes % (auto) 5.8 %; Monocytes # (auto) 2.87 K/uL (0.11-0.59); Neutrophils # (auto) 26.34 K/uL (1.4-6.5); Neutrophils % (auto) 82.6 %; RBC Morphology Unremarkable
[2018-10-09 06:44] LABS: Estimated Average Glucose 166 mg/dl
[2018-10-09] MEDS: SODIUM CHLORIDE 0.9% 500 ML IV SCH (07:05)
[2018-10-09] MEDS: LEVALBUTEROL 1.25MG/0.5ML NEB NEB SCH ×3 (07:07→18:46)
--- NOTE | 2018-10-09 07:10 | XRay Report ---
TWO VIEW CHEST CLINICAL HISTORY: Pneumonia. FINDINGS: AP and lateral chest radiographs are compared to study dated 09/27/2018 and correlated with c hest CT dated 08/24/2018. The AP views degraded by patient rotation. The heart is enlarged and there is atherosclerotic calcification of the thoracic aorta. There is pulmonary vascular congestion. Emphyse ma is observed. A loculated pleural collection at the right lung base is unchanged from previous. Mil d patchy airspace opacities are seen throughout both lungs. There is no pneumothorax. The skeletal st ructures are osteopenic. Degenerative change is noted throughout the thoracic spine. The bony thorax appears intact. IMPRESSION: 1. Cardiomegaly with pulmonary vascular congestion. 2. A loculated pleural collection at the right lung base is unchanged from previous. 3. Hazy airspace opacities are seen bilaterally. Differential considerations include mild pulmonary e molly and/or an infectious/inflammatory pneumonitis. Clinical correlation will be required. Electronically signed by: Raymundo Coughlin M.D. 10/09/2018 7:09 AM
[2018-10-09] MEDS ORDERED: VANCOMYCIN CONSULT ACTIVE PRN (08:22)
[2018-10-09] MEDS ORDERED: PIPERACILL/TAZOBAC CONSULT ACTIVE PRN (08:25)
[2018-10-09] MEDS: ASPIRIN 81 MG ECTAB PO SCH (08:42)
[2018-10-09] MEDS: DIVALPROEX EXTENDED RELEASE 250 MG TABCR PO SCH ×2 (08:42→21:26)
[2018-10-09] MEDS: TOCOPHERYL, DL-ALPHA 400 UNITS CAP PO SCH (08:42)
[2018-10-09] MEDS: dilTIAZem HCL 240 MG CAPCR PO SCH (08:42)
[2018-10-09] MEDS: hydroCHLOROthiazide 25 MG TAB PO SCH (08:42)
[2018-10-09] MEDS: LORATADINE 10 MG TAB PO SCH (08:43)
[2018-10-09] MEDS: ESCITALOPRAM OXALATE 10 MG TAB PO SCH (08:43)
[2018-10-09] MEDS: HEPARIN SOD 5,000 UNIT/0.5 ML VIAL SQ SCH ×2 (08:44→21:27)
[2018-10-09] MEDS: LOSARTAN POTASSIUM 50 MG TAB PO SCH (08:44)
[2018-10-09] MEDS: PHENYTOIN SODIUM ER 100 MG CAP PO SCH ×3 (08:44→21:27)
[2018-10-09] MEDS: INSULIN ASPART 100 UNITS/ML 3 ML PEN SC SCH ×4 (08:45→21:33)
[2018-10-09] MEDS: methylPREDNISolone 40 MG in SYRINGE 0 ML IV SCH ×2 (08:52→21:30)
[2018-10-09] MEDS: INSULIN GLARGINE SOLOSTAR 100 UNITS/ML 3 ML PEN SC SCH ×2 (08:52→21:30)
--- NOTE | 2018-10-09 08:55 | Pharmacy Report ---
Pharmacy Abx Initial Consult - Date of Service October 09, 2018 - Pharmacy Dosing Scope Date of Consult: 10/09/18 Consultation requested by: Jane Yi Pharmacy is consulted to initiate Zosyn and vancomycin IV dosing therapy, order appropriate labs and adjust drug dose/frequency. - Subjective The patient is a 88 year old M admitted on 10/09/18 02:33 with recurrent aspiration pneumonia. - Objective Height: 5 ft 9 in Weight: 68.8 kg Vital Signs (Past 12hrs): Vital Signs Temp Pulse Pulse Resp BP BP Pulse Ox 10/09/18 07:08 93 H 18 95 10/09/18 03:45 36.3 C L 86 20 162/88 H 97 10/09/18 03:30 91 H 16 123/88 95 10/09/18 02:30 100 H 19 139/78 95 10/09/18 02:00 102 H 24 145/86 H 95 10/09/18 01:30 102 H 23 140/104 H 94 10/09/18 01:00 103 H 18 139/78 95 10/09/18 00:30 102 H 21 143/67 H 95 10/09/18 00:26 101 H 20 144/86 H 94 10/08/18 23:00 107 H 27 H 156/83 H 94 10/08/18 22:30 104 H 21 154/78 H 92 10/08/18 22:00 107 H 19 178/74 H 92 10/08/18 21:48 108 H 28 H 159/92 H 93 10/08/18 21:47 107 H 28 H 159/92 H 94 10/08/18 21:00 37.2 C 113 H 22 142/84 H 96 Lab Results (24hrs): Laboratory Tests (24 Hours) 10/09/18 10/09/18 10/08/18 04:00 04:00 20:56 WBC 31.87 H* Neut # (Auto) 26.34 H Creatinine 0.95 0.97 Est Cr Clr Drug Dosing 55.8 54.7 10/08/18 20:56 WBC 30.93 H* Neut # (Auto) 25.86 H Creatinine Est Cr Clr Drug Dosing Micro Results: 10/08/18 22:36 Blood Culture - Pending Blood 10/08/18 21:13 Urine Culture - Pending Urine,Clean Catch 10/08/18 20:56 Blood Culture - Pending Blood - Risk Factors for Resistance * Hospitalization for 48 hours or more within the past 90 days * Antimicrobial use within the last 90 days (cefepime, Flagyl, Augmentin) - Assessment & Plan Assessment 88 year old M admitted with recurrent aspiration. Plan vancomycin/Zosyn for treatment of aspiration pneumonia Vancomycin IV * Estimated PK Parameters: Vd 0.7 L/kg, Uvaldo 0.05 hr-1, t1/2 14 hr * Loading dose: 1000 mg (15 mg/kg) * Maintenance dose: 1000 mg IV (15 mg/kg) every 14 hours (start 10 hours after load since only 15 mg/kg given) * Goal trough level for pulmonary infection : 15 to 20 mcg/mL * Trough ordered for 10/10/18 Piperacillin/tazobactam * 3.375 g bolus administered over 30 minutes, then 3.375 g IV extended infusion every 8 hours for CrCl greater than 20 mL/min Pharmacy will continue to follow and will adjust dose/frequency as necessary. Thank you.
[2018-10-09] MEDS ORDERED: CEROVITE ADV FORMULA TAB PO SCH (09:00)
[2018-10-09] MEDS ORDERED: CEFEPIME 1,000 MG in SYRINGE 0 ML IV SCH (09:00)
[2018-10-09] MEDS ORDERED: PIPERACILLIN/TAZOBACTAM 3.375 GM in DEXTROSE 5% 100 ML IV ONE (09:00)
[2018-10-09] MEDS: AZITHROMYCIN 500 MG in DEXTROSE 5% 250 ML IV SCH (09:54)
[2018-10-09] MEDS ORDERED: VANCOMYCIN HCL 1,000 MG in SODIUM CHLORIDE 0.9% 250 ML IV SCH (10:00)
--- NOTE | 2018-10-09 13:17 | Hospitalist Progress Note ---
Date of Service October 09, 2018 Assessment & Plan (1) HCAP (healthcare-associated pneumonia): HCAP/Aspiration pna/elevated lactate --Zosyn, azithromycin IV - mrsa swab negative so dc'd vanc --Await Blood cultures --Lactic 3 on admission and trended down, WBCs 31 --Nebs, oxygen support (uses 2L at home, currently 3LNC) --continue solumedrol 40 BID - CXR with hazy airspace opacities are seen bilaterally. Patient without significant cough or sputum production - Patient did mention some diarrhea yesterday - will check Cdiff given recent hospitalization and significant leukocytosis, UC pending (2) Mild dementia: (3) Anxiety: Anxiety/OCD -Cont home meds (4) History of CVA (cerebrovascular accident): h/o CVA -Loss of peripheral vision in L eye -cont ASA, statin (5) Seizure disorder: Seizure disorder -Per report, has not had seizure since August admission -Cont home meds (dilantin/depakote) (6) Elevated lactic acid level: (7) Chronic UTI: Chronic UTI -Cont macrobid prophylaxis (8) DM type 2 (diabetes mellitus, type 2): T2DM -Placed on ISS (9) Hyperlipidemia: (10) HTN (hypertension): HTN -Cont losartan, dilt, HCTZ (11) DVT prophylaxis: DVTP: heparin BID CODE: full Subjective Mr. Bell is feeling better today than when he came in. He has a mild cough without much production. No aches or chills. Has not been febrile since admission. Review of Systems All systems reviewed & are unremarkable except as noted in HPI & below Physical Exam 2 Vital Signs (Past 24 Hours): Last Vital Signs Temp 36.3 C L 10/09/18 03:45 Pulse 93 H 10/09/18 07:08 Resp 18 10/09/18 07:08 BP 162/88 H 10/09/18 03:45 Pulse Ox 95 10/09/18 07:08 Physical Exam: General: no distress Eyes: normal inspection, PERLL Respiratory: chest non tender, coarse to auscultation anteriorly, clear posterior bilaterally, no respiratory distress, no accessory muscle use Cardiac: regular rate and rhythm, no rub or gallop, no murmur, no edema, no jvd GI/: active bowel sounds, no abd pain or tenderness, soft, non distended Extremities: normal range of motion, normal strength, non tender Neuro/Psych: alert and oriented x 3, normal mood and affect Skin: normal color, dry Results & Data Laboratory Results Abnormal lab results 10/08/18 10/08/18 10/08/18 Range/Units 20:56 20:56 21:13 WBC 30.93 H* (4.8-10.8) K/uL RBC 3.98 L (4.7-6.1) M/uL Hgb 12.7 L (14.0-18.0) g/dL Hct 38.4 L (42-52) % RDW Std Deviation 48.1 H (36.4-46.3) fL Immature Gran # (Auto) 0.39 H (0.00-0.02) K/uL Neut # (Auto) 25.86 H (1.4-6.5) K/uL Lymph # (Auto) 0.92 L (1.2-3.4) K/uL [place] # (Auto) 2.86 H (0.11-0.59) K/uL Eos # (Auto) 0.85 H (0-0.5) K/uL VBG pH (7.36-7.41) Chloride 97 L (98-107) mmol/L Carbon Dioxide 33 H (21-32) mmol/L BUN 21 H (7-18) mg/dl BUN/Creatinine Ratio 21.7 H (10-20) Glucose 187 H (70-99) mg/dl POC Glucose (70-99) Hemoglobin A1c (4.5-5.6) % Lactate (0.4-2.0) mmol/L Calcium (8.5-10.1) mg/dl Albumin 2.6 L (3.4-5.0) gm/dl Urine Appearance Cloudy H (Clear) Urine pH 8.0 H (4.5-7.5) Urine Ketones Trace H (Negative) Ur Leukocyte Esterase Trace H (Negative) Urine WBC (Auto) 10-30 H (0-5) /hpf Urine RBC (Auto) 5-10 H (0-4) /hpf U Epithel Cells (Auto) >30 H (0-5) /lpf 10/08/18 10/08/18 10/09/18 Range/Units 22:36 22:36 04:00 WBC 31.87 H* (4.8-10.8) K/uL RBC 3.88 L (4.7-6.1) M/uL Hgb 12.1 L (14.0-18.0) g/dL Hct 37.4 L (42-52) % RDW Std Deviation 48.6 H (36.4-46.3) fL Immature Gran # (Auto) 0.35 H (0.00-0.02) K/uL Neut # (Auto) 26.34 H (1.4-6.5) K/uL Lymph # (Auto) (1.2-3.4) K/uL [place] # (Auto) 2.87 H (0.11-0.59) K/uL Eos # (Auto) (0-0.5) K/uL VBG pH 7.44 H (7.36-7.41) Chloride (98-107) mmol/L Carbon Dioxide (21-32) mmol/L BUN (7-18) mg/dl BUN/Creatinine Ratio (10-20) Glucose (70-99) mg/dl POC Glucose (70-99) Hemoglobin A1c (4.5-5.6) % Lactate 3.0 H* (0.4-2.0) mmol/L Calcium (8.5-10.1) mg/dl Albumin (3.4-5.0) gm/dl Urine Appearance (Clear) Urine pH (4.5-7.5) Urine Ketones (Negative) Ur Leukocyte Esterase (Negative) Urine WBC (Auto) (0-5) /hpf Urine RBC (Auto) (0-4) /hpf U Epithel Cells (Auto) (0-5) /lpf 10/09/18 10/09/18 10/09/18 Range/Units 04:00 04:00 04:00 WBC (4.8-10.8) K/uL RBC (4.7-6.1) M/uL Hgb (14.0-18.0) g/dL Hct (42-52) % RDW Std Deviation (36.4-46.3) fL Immature Gran # (Auto) (0.00-0.02) K/uL Neut # (Auto) (1.4-6.5) K/uL Lymph # (Auto) (1.2-3.4) K/uL [place] # (Auto) (0.11-0.59) K/uL Eos # (Auto) (0-0.5) K/uL VBG pH (7.36-7.41) Chloride (98-107) mmol/L Carbon Dioxide 33 H (21-32) mmol/L BUN (7-18) mg/dl BUN/Creatinine Ratio (10-20) Glucose 161 H (70-99) mg/dl POC Glucose (70-99) Hemoglobin A1c 7.4 H (4.5-5.6) % Lactate 2.3 H* (0.4-2.0) mmol/L Calcium 8.3 L (8.5-10.1) mg/dl Albumin (3.4-5.0) gm/dl Urine Appearance (Clear) Urine pH (4.5-7.5) Urine Ketones (Negative) Ur Leukocyte Esterase (Negative) Urine WBC (Auto) (0-5) /hpf Urine RBC (Auto) (0-4) /hpf U Epithel Cells (Auto) (0-5) /lpf 10/09/18 10/09/18 Range/Units 08:50 12:06 WBC (4.8-10.8) K/uL RBC (4.7-6.1) M/uL Hgb (14.0-18.0) g/dL Hct (42-52) % RDW Std Deviation (36.4-46.3) fL Immature Gran # (Auto) (0.00-0.02) K/uL Neut # (Auto) (1.4-6.5) K/uL Lymph # (Auto) (1.2-3.4) K/uL [place] # (Auto) (0.11-0.59) K/uL Eos # (Auto) (0-0.5) K/uL VBG pH (7.36-7.41) Chloride (98-107) mmol/L Carbon Dioxide (21-32) mmol/L BUN (7-18) mg/dl BUN/Creatinine Ratio (10-20) Glucose (70-99) mg/dl POC Glucose 266 H 187 H (70-99) Hemoglobin A1c (4.5-5.6) % Lactate (0.4-2.0) mmol/L Calcium (8.5-10.1) mg/dl Albumin (3.4-5.0) gm/dl Urine Appearance (Clear) Urine pH (4.5-7.5) Urine Ketones (Negative) Ur Leukocyte Esterase (Negative) Urine WBC (Auto) (0-5) /hpf Urine RBC (Auto) (0-4) /hpf U Epithel Cells (Auto) (0-5) /lpf _ (1) DM type 2 (diabetes mellitus, type 2) 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
[2018-10-09] MEDS: PIPERACILLIN/TAZOBACTAM 3.375 GM in DEXTROSE 5% 100 ML IV SCH ×2 (13:29→21:46)
[2018-10-09] MEDS: ATORVASTATIN 40 MG TAB PO SCH (21:28)
[2018-10-09] MEDS: NITROFURANTOIN MACROCRYSTAL 50 MG CAP PO SCH (21:28)
[2018-10-09] MEDS: QUETIAPINE FUMARATE 25 MG TABLET PO SCH (21:28)
[2018-10-10] MEDS: LEVALBUTEROL 1.25MG/0.5ML NEB NEB SCH ×4 (02:29→19:44)
[2018-10-10] MEDS: PIPERACILLIN/TAZOBACTAM 3.375 GM in DEXTROSE 5% 100 ML IV SCH ×3 (05:31→21:38)
[2018-10-10 06:06] LABS: Basophils # (auto) 0.02 K/uL (0-0.2); Basophils % (auto) 0.1 %; Eosinophils # (auto) 0.01 K/uL (0-0.5); Eosinophils % (auto) 0.1 %; Hematocrit (blood only) 35.9 % (42-52); Hemoglobin 11.7 g/dL (14.0-18.0); Immature Granulocytes # (auto) 0.16 K/uL (0.00-0.02); Immature Granulocytes % (auto) 1.2 %; Lymphocytes # (auto) 0.96 K/uL (1.2-3.4); Mean Corpuscular Hgb Conc 32.6 g/dL (32-36); Mean Corpuscular Volume 95.2 fL (80-100); Mean Platelet Volume 9.9 fL (7.4-10.4); Monocytes # (auto) 0.98 K/uL (0.11-0.59); Monocytes % (auto) 7.2 %; Neutrophils # (auto) 11.53 K/uL (1.4-6.5); Neutrophils % (auto) 84.4 %; Platelet Count 363 K/uL (130-400); RDW Coefficient of Variation 14.1 % (11.5-14.5); RDW Standard Deviation 48.5 fL (36.4-46.3); Red Blood Count 3.77 M/uL (4.7-6.1); White Blood Count 13.66 K/uL (4.8-10.8)
[2018-10-10 06:33] LABS: BUN Creatinine Ratio 21.7 (10-20); Calcium 8.6 mg/dl (8.5-10.1); Creatinine Clr Calc Pharmacy 52.1 ml/min; Est GFR (African American) 79.6; Est GFR (Non-African American) 68.7; Potassium 4.1 mmol/L (3.5-5.1)
[2018-10-10] MEDS: hydroCHLOROthiazide 25 MG TAB PO SCH (08:21)
[2018-10-10] MEDS: LOSARTAN POTASSIUM 50 MG TAB PO SCH (08:22)
[2018-10-10] MEDS: LORATADINE 10 MG TAB PO SCH (08:22)
[2018-10-10] MEDS: ESCITALOPRAM OXALATE 10 MG TAB PO SCH (08:22)
[2018-10-10] MEDS: methylPREDNISolone 40 MG in SYRINGE 0 ML IV SCH ×2 (08:23→15:39)
[2018-10-10] MEDS: TOCOPHERYL, DL-ALPHA 400 UNITS CAP PO SCH (08:23)
[2018-10-10] MEDS: dilTIAZem HCL 240 MG CAPCR PO SCH (08:23)
[2018-10-10] MEDS: PHENYTOIN SODIUM ER 100 MG CAP PO SCH ×3 (08:24→20:34)
[2018-10-10] MEDS: DIVALPROEX EXTENDED RELEASE 250 MG TABCR PO SCH ×2 (08:24→20:34)
[2018-10-10] MEDS: HEPARIN SOD 5,000 UNIT/0.5 ML VIAL SQ SCH ×2 (08:25→20:37)
[2018-10-10] MEDS: ASPIRIN 81 MG ECTAB PO SCH (08:25)
[2018-10-10] MEDS: INSULIN ASPART 100 UNITS/ML 3 ML PEN SC SCH ×4 (08:27→20:48)
[2018-10-10] MEDS: INSULIN GLARGINE SOLOSTAR 100 UNITS/ML 3 ML PEN SC SCH ×2 (08:28→20:35)
[2018-10-10] MEDS: AZITHROMYCIN 500 MG in DEXTROSE 5% 250 ML IV SCH (09:38)
--- NOTE | 2018-10-10 12:57 | Hospitalist Progress Note ---
Date of Service October 10, 2018 Assessment & Plan (1) HCAP (healthcare-associated pneumonia): HCAP/Aspiration pna/elevated lactate --Zosyn, azithromycin IV - mrsa swab negative so dc'd vanc --Blood cultures growing gram positive cocci x1 vial - likely contaminant --Lactic 3 on admission and trended down, leukocytosis improving --Nebs, oxygen support (uses 2L at home, currently 3LNC) --continue solumedrol 40 BID - CXR with hazy airspace opacities are seen bilaterally. Patient without significant cough or sputum production - incentive spirometry (2) Mild dementia: (3) Anxiety: Anxiety/OCD -Cont home meds (4) History of CVA (cerebrovascular accident): h/o CVA -Loss of peripheral vision in L eye -cont ASA, statin (5) Seizure disorder: Seizure disorder -Per report, has not had seizure since August admission -Cont home meds (dilantin/depakote) (6) Elevated lactic acid level: (7) Chronic UTI: Chronic UTI -Cont macrobid prophylaxis (8) DM type 2 (diabetes mellitus, type 2): T2DM -Placed on ISS (9) Hyperlipidemia: (10) HTN (hypertension): HTN -Cont losartan, dilt, HCTZ (11) DVT prophylaxis: DVTP: heparin BID CODE: full Dispo: Will have PT/OT evaluate Subjective Mr. Bell is feeling better today. He has a cough productive of yellow sputum. He denies other discomfort or pain. Review of Systems All systems reviewed & are unremarkable except as noted in HPI & below Physical Exam 2 Vital Signs (Past 24 Hours): Last Vital Signs Temp 36.8 C 10/10/18 07:46 Pulse 78 10/10/18 07:46 Resp 18 10/10/18 07:46 BP 128/80 10/10/18 07:46 Pulse Ox 97 10/10/18 07:46 Physical Exam: General: no distress Eyes: normal inspection, PERLL Respiratory: chest non tender, crackles bilateral bases, no respiratory distress , no accessory muscle use Cardiac: regular rate and rhythm, no rub or gallop, systolic murmur, no edema, no jvd GI/: active bowel sounds, no abd pain or tenderness, soft, non distended Extremities: normal range of motion, normal strength, non tender Neuro/Psych: alert and oriented x 3, normal mood and affect Skin: normal color, dry Results & Data Laboratory Results Abnormal lab results 10/09/18 10/09/18 10/10/18 Range/Units 16:37 20:45 05:32 WBC 13.66 H (4.8-10.8) K/uL RBC 3.77 L (4.7-6.1) M/uL Hgb 11.7 L (14.0-18.0) g/dL Hct 35.9 L (42-52) % RDW Std Deviation 48.5 H (36.4-46.3) fL Immature Gran # (Auto) 0.16 H (0.00-0.02) K/uL Neut # (Auto) 11.53 H (1.4-6.5) K/uL Lymph # (Auto) 0.96 L (1.2-3.4) K/uL [place] # (Auto) 0.98 H (0.11-0.59) K/uL Carbon Dioxide (21-32) mmol/L BUN (7-18) mg/dl BUN/Creatinine Ratio (10-20) Glucose (70-99) mg/dl POC Glucose 140 H 222 H (70-99) 10/10/18 10/10/18 10/10/18 Range/Units 05:32 07:22 11:11 WBC (4.8-10.8) K/uL RBC (4.7-6.1) M/uL Hgb (14.0-18.0) g/dL Hct (42-52) % RDW Std Deviation (36.4-46.3) fL Immature Gran # (Auto) (0.00-0.02) K/uL Neut # (Auto) (1.4-6.5) K/uL Lymph # (Auto) (1.2-3.4) K/uL [place] # (Auto) (0.11-0.59) K/uL Carbon Dioxide 33 H (21-32) mmol/L BUN 22 H (7-18) mg/dl BUN/Creatinine Ratio 21.7 H (10-20) Glucose 187 H (70-99) mg/dl POC Glucose 185 H 215 H (70-99) _ (1) DM type 2 (diabetes mellitus, type 2) Diabetes mellitus mcc insulin use: without mcc use Diabetes mellitus complication status: without complication Diabetes mellitus complication detail: Diabetic retinopathy severity: Proliferative retinopathy type: Diabetes mellitus macular edema: Laterality: Chronic kidney disease stage: Qualified Code(s): E11.9 - Type 2 diabetes mellitus without complications
[2018-10-10] MEDS ORDERED: VANCOMYCIN TROUGH ONE (13:30)
[2018-10-10] MEDS: NITROFURANTOIN MACROCRYSTAL 50 MG CAP PO SCH (20:34)
[2018-10-10] MEDS: ATORVASTATIN 40 MG TAB PO SCH (20:35)
[2018-10-10] MEDS: QUETIAPINE FUMARATE 25 MG TABLET PO SCH (20:44)
[2018-10-11] MEDS: LEVALBUTEROL 1.25MG/0.5ML NEB NEB SCH ×4 (01:53→19:41)
[2018-10-11] MEDS: PIPERACILLIN/TAZOBACTAM 3.375 GM in DEXTROSE 5% 100 ML IV SCH (05:36)
[2018-10-11 06:02] LABS: Basophils # (auto) 0.02 K/uL (0-0.2); Basophils % (auto) 0.2 %; Eosinophils # (auto) 0.02 K/uL (0-0.5); Eosinophils % (auto) 0.2 %; Hematocrit (blood only) 33.7 % (42-52); Hemoglobin 10.9 g/dL (14.0-18.0); Immature Granulocytes # (auto) 0.13 K/uL (0.00-0.02); Lymphocytes % (auto) 11.4 %; Mean Corpuscular Hgb Conc 32.3 g/dL (32-36); Mean Corpuscular Volume 95.7 fL (80-100); Mean Platelet Volume 9.3 fL (7.4-10.4); Monocytes # (auto) 1.29 K/uL (0.11-0.59); Monocytes % (auto) 9.8 %; Neutrophils % (auto) 77.4 %; Platelet Count 356 K/uL (130-400); RDW Coefficient of Variation 14.2 % (11.5-14.5); RDW Standard Deviation 48.6 fL (36.4-46.3); Red Blood Count 3.52 M/uL (4.7-6.1); White Blood Count 13.16 K/uL (4.8-10.8)
[2018-10-11 06:39] LABS: BUN Creatinine Ratio 21.9 (10-20); Calcium 8.5 mg/dl (8.5-10.1); Creatinine Clr Calc Pharmacy 49.1 ml/min; Est GFR (African American) 74.1; Potassium 3.6 mmol/L (3.5-5.1)
[2018-10-11] MEDS: ESCITALOPRAM OXALATE 10 MG TAB PO SCH (08:05)
[2018-10-11] MEDS: LOSARTAN POTASSIUM 50 MG TAB PO SCH (08:05)
[2018-10-11] MEDS: dilTIAZem HCL 240 MG CAPCR PO SCH (08:05)
[2018-10-11] MEDS: LORATADINE 10 MG TAB PO SCH (08:05)
[2018-10-11] MEDS: hydroCHLOROthiazide 25 MG TAB PO SCH (08:06)
[2018-10-11] MEDS: ASPIRIN 81 MG ECTAB PO SCH (08:08)
[2018-10-11] MEDS: DIVALPROEX EXTENDED RELEASE 250 MG TABCR PO SCH ×2 (08:08→20:14)
[2018-10-11] MEDS: PHENYTOIN SODIUM ER 100 MG CAP PO SCH ×3 (08:08→20:14)
[2018-10-11] MEDS: TOCOPHERYL, DL-ALPHA 400 UNITS CAP PO SCH (08:08)
[2018-10-11] MEDS ORDERED: AZITHROMYCIN 250 MG TAB PO SCH (09:00)
[2018-10-11] MEDS: methylPREDNISolone 40 MG in SYRINGE 0 ML IV SCH (09:41)
[2018-10-11] MEDS: HEPARIN SOD 5,000 UNIT/0.5 ML VIAL SQ SCH ×2 (09:42→20:15)
[2018-10-11] MEDS: INSULIN GLARGINE SOLOSTAR 100 UNITS/ML 3 ML PEN SC SCH ×2 (09:47→20:15)
[2018-10-11] MEDS: INSULIN ASPART 100 UNITS/ML 3 ML PEN SC SCH ×4 (09:47→20:16)
--- NOTE | 2018-10-11 12:58 | Hospitalist Progress Note ---
Date of Service October 11, 2018 Assessment & Plan (1) HCAP (healthcare-associated pneumonia): HCAP/Aspiration pna/elevated lactate --Given Zosyn, azithromycin IV - mrsa swab negative - will change to levaquin po --Blood cultures growing gram positive cocci x1 vial - likely contaminant --Lactic 3 on admission and trended down, leukocytosis improving --Nebs, oxygen support (at baseline O2) -- decreased solumedrol to 40 mg daily - CXR with hazy airspace opacities are seen bilaterally. - incentive spirometry (2) Mild dementia: (3) Anxiety: Anxiety/OCD -Cont home meds (4) History of CVA (cerebrovascular accident): h/o CVA -Loss of peripheral vision in L eye -cont ASA, statin (5) Seizure disorder: Seizure disorder -Per report, has not had seizure since August admission -Cont home meds (dilantin/depakote) (6) Elevated lactic acid level: (7) Chronic UTI: Chronic UTI -Cont macrobid prophylaxis (8) DM type 2 (diabetes mellitus, type 2): T2DM -Placed on ISS (9) Hyperlipidemia: (10) HTN (hypertension): HTN -Cont losartan, dilt, HCTZ (11) DVT prophylaxis: DVTP: heparin BID CODE: full Dispo: PT/OT evaluations. Subjective Continues to have significant yellow sputum production but overall feels better. Participated in physical therapy. Review of Systems All systems reviewed & are unremarkable except as noted in HPI & below Physical Exam 2 Vital Signs (Past 24 Hours): Last Vital Signs Temp 37.0 C 10/11/18 08:29 Pulse 71 10/11/18 08:29 Resp 20 10/11/18 08:29 BP 140/82 10/11/18 08:29 Pulse Ox 94 10/11/18 11:54 Physical Exam: General: no distress Eyes: normal inspection, PERLL Respiratory: chest non tender, fine crackles in bases bilaterally , no respiratory distress, no accessory muscle use Cardiac: regular rate and rhythm, no rub or gallop, no murmur, no edema, no jvd GI/: active bowel sounds, no abd pain or tenderness, soft, non distended Extremities: normal range of motion, normal strength, non tender Neuro/Psych: alert and oriented x 3, normal mood and affect Skin: normal color, dry Results & Data Laboratory Results Abnormal lab results 10/10/18 10/10/18 10/11/18 Range/Units 16:31 20:29 05:37 WBC 13.16 H (4.8-10.8) K/uL RBC 3.52 L (4.7-6.1) M/uL Hgb 10.9 L (14.0-18.0) g/dL Hct 33.7 L (42-52) % RDW Std Deviation 48.6 H (36.4-46.3) fL Immature Gran # (Auto) 0.13 H (0.00-0.02) K/uL Neut # (Auto) 10.20 H (1.4-6.5) K/uL [place] # (Auto) 1.29 H (0.11-0.59) K/uL Carbon Dioxide (21-32) mmol/L BUN (7-18) mg/dl BUN/Creatinine Ratio (10-20) Glucose (70-99) mg/dl POC Glucose 129 H 242 H (70-99) 10/11/18 10/11/18 10/11/18 Range/Units 05:37 07:38 11:49 WBC (4.8-10.8) K/uL RBC (4.7-6.1) M/uL Hgb (14.0-18.0) g/dL Hct (42-52) % RDW Std Deviation (36.4-46.3) fL Immature Gran # (Auto) (0.00-0.02) K/uL Neut # (Auto) (1.4-6.5) K/uL [place] # (Auto) (0.11-0.59) K/uL Carbon Dioxide 35 H (21-32) mmol/L BUN 23 H (7-18) mg/dl BUN/Creatinine Ratio 21.9 H (10-20) Glucose 169 H (70-99) mg/dl POC Glucose 141 H 206 H (70-99) _ (1) DM type 2 (diabetes mellitus, type 2) Diabetes mellitus senior living insulin use: without exterminator use Diabetes mellitus complication status: without complication Diabetes mellitus complication detail: Diabetic retinopathy severity: Proliferative retinopathy type: Diabetes mellitus macular edema: Laterality: Chronic kidney disease stage: Qualified Code(s): E11.9 - Type 2 diabetes mellitus without complications
[2018-10-11] MEDS: NITROFURANTOIN MACROCRYSTAL 50 MG CAP PO SCH (20:14)
[2018-10-11] MEDS: ATORVASTATIN 40 MG TAB PO SCH (20:14)
[2018-10-11] MEDS: QUETIAPINE FUMARATE 25 MG TABLET PO SCH (20:15)
[2018-10-12] MEDS: LEVALBUTEROL 1.25MG/0.5ML NEB NEB SCH ×4 (02:50→20:11)
[2018-10-12] MEDS: PHENYTOIN SODIUM ER 100 MG CAP PO SCH ×3 (07:50→20:46)
[2018-10-12] MEDS: methylPREDNISolone 40 MG in SYRINGE 0 ML IV SCH (07:50)
[2018-10-12] MEDS: ESCITALOPRAM OXALATE 10 MG TAB PO SCH (07:51)
[2018-10-12] MEDS: LOSARTAN POTASSIUM 50 MG TAB PO SCH (07:51)
[2018-10-12] MEDS: ASPIRIN 81 MG ECTAB PO SCH (07:51)
[2018-10-12] MEDS: DIVALPROEX EXTENDED RELEASE 250 MG TABCR PO SCH ×2 (07:51→20:46)
[2018-10-12] MEDS: TOCOPHERYL, DL-ALPHA 400 UNITS CAP PO SCH (07:51)
[2018-10-12] MEDS: LORATADINE 10 MG TAB PO SCH (07:51)
[2018-10-12] MEDS: dilTIAZem HCL 240 MG CAPCR PO SCH (07:51)
[2018-10-12] MEDS: HEPARIN SOD 5,000 UNIT/0.5 ML VIAL SQ SCH ×2 (07:52→20:44)
[2018-10-12] MEDS: hydroCHLOROthiazide 25 MG TAB PO SCH (07:52)
[2018-10-12] MEDS: INSULIN GLARGINE SOLOSTAR 100 UNITS/ML 3 ML PEN SC SCH (07:53)
[2018-10-12] MEDS: INSULIN ASPART 100 UNITS/ML 3 ML PEN SC SCH ×4 (08:14→20:47)
[2018-10-12 10:14] LABS: Basophils # (auto) 0.01 K/uL (0-0.2); Basophils % (auto) 0.1 %; Eosinophils # (auto) 0.03 K/uL (0-0.5); Eosinophils % (auto) 0.2 %; Hematocrit (blood only) 34.1 % (42-52); Immature Granulocytes # (auto) 0.08 K/uL (0.00-0.02); Immature Granulocytes % (auto) 0.6 %; Lymphocytes # (auto) 0.85 K/uL (1.2-3.4); Lymphocytes % (auto) 6.4 %; Mean Corpuscular Hgb Conc 32.3 g/dL (32-36); Mean Corpuscular Volume 96.1 fL (80-100); Mean Platelet Volume 9.2 fL (7.4-10.4); Monocytes # (auto) 0.54 K/uL (0.11-0.59); Monocytes % (auto) 4.1 %; Neutrophils # (auto) 11.81 K/uL (1.4-6.5); Neutrophils % (auto) 88.6 %; Platelet Count 340 K/uL (130-400); RDW Coefficient of Variation 14.1 % (11.5-14.5); Red Blood Count 3.55 M/uL (4.7-6.1); White Blood Count 13.32 K/uL (4.8-10.8)
[2018-10-12 10:54] LABS: BUN Creatinine Ratio 19.4 (10-20); Calcium 8.3 mg/dl (8.5-10.1); Creatinine Clr Calc Pharmacy 50.1 ml/min; Est GFR (African American) 75.9; Est GFR (Non-African American) 65.5; Potassium 3.7 mmol/L (3.5-5.1)
--- NOTE | 2018-10-12 13:27 | XRay Report ---
XR chest 1V portable HISTORY: 88 years-old Male coarse lung sounds coarsened lung sounds with pleural effusion COMPARISON: Chest radiograph 10/08/2018 TECHNIQUE: Portable AP view the chest FINDINGS: Cardiac mediastinal and hilar silhouettes are unchanged with cardiomegaly. Calcification the thoracic aortic arch. Stable loculated right pleural effusion. No pneumothorax, or overt pulmonary edema. The left lung is generally clear. Mild blunting of the left costophrenic angle. Improved aeration of the lung bases without lobar airspace consolidation identified. Degenerative changes of the shoulders an d spine. IMPRESSION: 1. Unchanged loculated right pleural effusion. 2. Cardiomegaly without overt pulmonary edema. The above report was generated using voice recognition software. It may contain grammatical, syntax o r spelling errors. Electronically signed by: Geronimo Gutierrez M.D. 10/12/2018 1:26 PM
--- NOTE | 2018-10-12 16:38 | Hospitalist Progress Note ---
Date of Service October 12, 2018 Assessment & Plan (1) HCAP (healthcare-associated pneumonia): HCAP/Aspiration pna/elevated lactate --Given Zosyn, azithromycin IV - mrsa swab negative - will change to levaquin po --Blood cultures growing gram positive cocci x1 vial - likely contaminant --Lactic 3 on admission and trended down, leukocytosis improving --Nebs, oxygen support (at baseline O2) -- decreased solumedrol to 40 mg daily - CXR with hazy airspace opacities are seen bilaterally, repeated with improvement shown - incentive spirometry (2) Mild dementia: (3) Anxiety: Anxiety/OCD -Cont home meds (4) History of CVA (cerebrovascular accident): h/o CVA -Loss of peripheral vision in L eye -cont ASA, statin (5) Seizure disorder: Seizure disorder -Per report, has not had seizure since August admission -Cont home meds (dilantin/depakote) (6) Elevated lactic acid level: (7) Chronic UTI: Chronic UTI -Cont macrobid prophylaxis (8) DM type 2 (diabetes mellitus, type 2): T2DM -Placed on ISS (9) Hyperlipidemia: (10) HTN (hypertension): HTN -Cont losartan, dilt, HCTZ (11) DVT prophylaxis: DVTP: heparin BID CODE: full Dispo: PT/OT evaluations completed - home health at discharge Subjective Review of Systems All systems reviewed & are unremarkable except as noted in HPI & below Physical Exam 2 Vital Signs (Past 24 Hours): Last Vital Signs Temp 36.9 C 10/12/18 16:14 Pulse 77 10/12/18 16:14 Resp 18 10/12/18 16:14 BP 123/66 10/12/18 16:14 Pulse Ox 94 10/12/18 16:14 Physical Exam: General: no distress Eyes: normal inspection, PERLL Respiratory: chest non tender, coarse breath sounds in the bases bilaterally, no respiratory distress, no accessory muscle use Cardiac: regular rate and rhythm, no rub or gallop, no murmur, no edema, no jvd GI/: active bowel sounds, no abd pain or tenderness, soft, non distended Extremities: normal range of motion, normal strength, non tender Neuro/Psych: alert and oriented x 3, normal mood and affect Skin: normal color, dry _ (1) DM type 2 (diabetes mellitus, type 2) Diabetes mellitus nursing home insulin use: without intermediate teacher use Diabetes mellitus complication status: without complication Diabetes mellitus complication detail: Diabetic retinopathy severity: Proliferative retinopathy type: Diabetes mellitus macular edema: Laterality: Chronic kidney disease stage: Qualified Code(s): E11.9 - Type 2 diabetes mellitus without complications
[2018-10-12] MEDS ORDERED: PHARMACY GLYCEMIC MGMT CONSULT PRN (17:59)
[2018-10-12] MEDS ORDERED: INSULIN GLARGINE SOLOSTAR 100 UNITS/ML 3 ML PEN SC ONE (19:00)
[2018-10-12] MEDS: ATORVASTATIN 40 MG TAB PO SCH (20:44)
[2018-10-12] MEDS: NITROFURANTOIN MACROCRYSTAL 50 MG CAP PO SCH (20:44)
[2018-10-12] MEDS: QUETIAPINE FUMARATE 25 MG TABLET PO SCH (20:45)
[2018-10-13] MEDS: LEVALBUTEROL 1.25MG/0.5ML NEB NEB SCH ×2 (01:47→07:04)
[2018-10-13] MEDS: INSULIN ASPART 100 UNITS/ML 3 ML PEN SC SCH ×2 (08:05→12:42)
[2018-10-13] MEDS: HEPARIN SOD 5,000 UNIT/0.5 ML VIAL SQ SCH (08:06)
[2018-10-13] MEDS: PHENYTOIN SODIUM ER 100 MG CAP PO SCH (08:07)
[2018-10-13] MEDS: TOCOPHERYL, DL-ALPHA 400 UNITS CAP PO SCH (08:07)
[2018-10-13] MEDS: LOSARTAN POTASSIUM 50 MG TAB PO SCH (08:07)
[2018-10-13] MEDS: ESCITALOPRAM OXALATE 10 MG TAB PO SCH (08:07)
[2018-10-13] MEDS: LORATADINE 10 MG TAB PO SCH (08:07)
[2018-10-13] MEDS: dilTIAZem HCL 240 MG CAPCR PO SCH (08:07)
[2018-10-13] MEDS: DIVALPROEX EXTENDED RELEASE 250 MG TABCR PO SCH (08:08)
[2018-10-13] MEDS: hydroCHLOROthiazide 25 MG TAB PO SCH (08:08)
[2018-10-13] MEDS: ASPIRIN 81 MG ECTAB PO SCH (08:09)
[2018-10-13 08:28] LABS: Hematocrit (blood only) 40.3 % (42-52); Hemoglobin 12.9 g/dL (14.0-18.0); Mean Corpuscular Volume 97.3 fL (80-100); Mean Platelet Volume 9.1 fL (7.4-10.4); Platelet Count 328 K/uL (130-400); RDW Coefficient of Variation 14.2 % (11.5-14.5); RDW Standard Deviation 50.6 fL (36.4-46.3); Red Blood Count 4.14 M/uL (4.7-6.1); White Blood Count 10.12 K/uL (4.8-10.8)
[2018-10-13] MEDS ORDERED: INSULIN HUMAN NPH SC SCH (08:30)
[2018-10-13] MEDS ORDERED: predniSONE 50 MG TAB PO SCH (09:00)
[2018-10-13 09:11] LABS: BUN Creatinine Ratio 23.5 (10-20); Calcium 9.1 mg/dl (8.5-10.1); Est GFR (Non-African American) 78.5; Potassium 3.6 mmol/L (3.5-5.1)
[2018-10-13 09:34] LABS: Basophils # (auto) 0.02 K/uL (0-0.2); Basophils % (auto) 0.2 %; Eosinophils # (auto) 0.08 K/uL (0-0.5); Eosinophils % (auto) 0.8 %; Immature Granulocytes # (auto) 0.05 K/uL (0.00-0.02); Immature Granulocytes % (auto) 0.5 %; Lymphocytes # (auto) 1.72 K/uL (1.2-3.4); Monocytes # (auto) 0.96 K/uL (0.11-0.59); Monocytes % (auto) 9.5 %; Neutrophils # (auto) 7.29 K/uL (1.4-6.5)
[2018-10-13] MEDS ORDERED: levoFLOXacin 750 MG TAB PO SCH (11:00)
--- NOTE | 2018-10-13 11:28 | Discharge Summary ---
Date of Service October 13, 2018 Admission HPI Per Admitting Provider Pt is a pleasant 88yoM with PMH aspiration pna, dementia, CVA, DM, HTN, HLD, Anxiety, seizure DO, chronic UTI who presents with fevers, chills, cough, runny nose for the past few days. HPI limited to dementia, no family present. He denies any urinary symptoms and states he has just been "unwell" the past few days. Patient has been admitted numerous times for aspiration pneumonia in the past 4 months. He wears 2L O2 throughout the day. Principal Diagnosis Pneumonia Discharge Exam Constitutional WD/WN, vitals as above Respiratory normal respiratory effort; no respiratory distress and no labored breathing coarse lung sounds, expiratory wheezes bilaterally Cardiovascular RRR, no murmur, no edema Gastrointestinal (Abdomen) Inspection/Auscultation: abdomen normal to inspection Musculoskeletal no cyanosis or clubbing, extremities motor strength 5/5 Skin no rashes, warm and dry Neurologic moves all extremities and awake Psychiatric A+Ox3, euthymic affect Discharge Data Allergies Allergy/AdvReac Type Severity Reaction Status Date / Time No Known Allergies Allergy Unknown NONE KNOWN Verified 09/27/18 12:38 Consultations 10/08/18 23:28 ED Decision to Admit Stat Hospital Course (1) HCAP (healthcare-associated pneumonia): HCAP/elevated lactate -- patient with history of aspiration pneumonia --Given Zosyn, azithromycin IV - mrsa swab negative - changed levaquin po - patient will discharge with three more days of Levaquin for a 7 day regimen total --Blood cultures growing coag negative staph x1 vial - likely contaminant --Lactic 3 on admission and trended down, leukocytosis at 30 on admission, now wnl --Nebs, oxygen support (at baseline O2) -- continue to titrate steroids for home - CXR with hazy airspace opacities are seen bilaterally, repeated with improvement shown - incentive spirometry (2) Mild dementia: hold quetiapine until finished with levaquin - may want to consider discontinuing this medication altogether as a listed side effect is dysphagia and aspiration pneumonia. Literature review proposes that the mechanism behind this is an extrapyramidal side effect causing dyskinesia of the pharygeal muscles resulting in dysphagia and aspiration. (3) Anxiety: Anxiety/OCD -Cont home meds (4) History of CVA (cerebrovascular accident): h/o CVA -Loss of peripheral vision in L eye -cont ASA, statin (5) Seizure disorder: Seizure disorder -Per report, has not had seizure since August admission -Cont home meds (dilantin/depakote) (6) Elevated lactic acid level: (7) Chronic UTI: Chronic UTI -Cont macrobid prophylaxis - UC negative for infection (8) DM type 2 (diabetes mellitus, type 2): T2DM -Placed on ISS while inpatient - I don't think this patient is necessarily a very good candidate for sending home with an NPH insulin taper to cover sugars while finishing his steroid taper given his age and history of mild dementia and lack of history of home insulin use. He did require a fair amount of insulin while inpatient. I will send him home with glimeperide 1 mg x 6 days to cover most of the prednisone taper with instruction to check sugars four times per day. Home health can check in on his blood sugar log. (9) Hyperlipidemia: (10) HTN (hypertension): HTN -Cont losartan, dilt, HCTZ (11) DVT prophylaxis: DVTP: heparin BID CODE: full Total Time Total Time Spent Total Time Spent (In Minutes): greater than 30 minutes Discharge Plan Discharge Items Patient Disposition: Home - Home Health Services Reason For Visit: ASPIRATION PNEUMONIA Discharge Diagnosis: Pneumonia Discharge Goals: Improve disease control Activity: Resume your previous activity Non-emergency contact: Primary Care Provider Call non-emergency contact if: you have any medication questions, your symptoms worsen and you have a fever Follow-up/Referrals: Werner Beck MD [Primary Care Provider] - 10/22/18 2:00 pm (Please, follow up at Dr. Beck's office with Bhavana [facility]N on SundayOctober 22 at 2:00 pm. If you need to change this appointment, call the office at [phone].) Diet: Carb Consistent or DM2 Addtl Provider Instructions: Please complete your entire regimen of antibiotics. Please hold the quetiapine ( Seroquel) until you finish the levaquin to avoid potential interaction. You should taper your prednisone as follows: 40 mg x 2 days 30 mg x 2 days 20 mg x 2 days 10 mg x 2 days I will send you home with glimeperide for six days while you are on the steroid to help control your blood sugars. You should continue the metformin as well. Glimeperide can cause hypoglycemia (low blood sugar) so you will need to be sure to check your blood sugars consistently and check your sugars if you have any signs of low blood sugar. The symptoms of low blood sugar can be different from person to person, and can price changer time. During the early stages of low blood sugar, a person can: Sweat or tremble Feel hungry Feel worried People who have early symptoms should check their blood sugar level to see if it is low and needs to be treated. If low blood sugar levels are not treated, severe symptoms can occur. These can include: Trouble walking or feeling weak Trouble seeing clearly Being confused or acting in a strange way Passing out or having a seizure If you experience any of these symptoms, you should take in a dose of quickly absorbed carbohydrate like 1/2 cup of juice or 5 saltine crackers or a tablespoon of honey, and then call your doctor You should check your blood sugars 4 times a day before meals and before bed while on the steroid and keep a log of the results. Call your doctor if your blood sugars are consistently over 250 or if they are below 70 at any time. Have the home health nurse review your blood sugar log when she sees you. Prescriptions: New levofloxacin 750 mg Tablet 750 mg PO DAILY 3 Days Qty: 3 RF: 0 prednisone 20 mg tablet 20 mg PO DAILY Qty: 10 RF: 0 glimepiride 1 mg tablet 1 mg PO DAILY Qty: 6 RF: 0 levalbuterol tartrate 45 mcg/actuation HFA aerosol inhaler 2 puffs INH Q6H PRN (Reason: shortness of breath) Qty: 15 RF: 0 Continue atorvastatin 40 mg tablet 40 mg PO HS RF: 0 nitrofurantoin macrocrystal 50 mg capsule 50 mg PO QPM RF: 0 diltiazem HCl 240 mg capsule,extended release 24hr 240 mg PO QAM RF: 0 aspirin [Aspir-81] 81 mg Tablet,Delayed Release (Dr/Ec) 81 mg PO QAM RF: 0 hydrochlorothiazide 12.5 mg capsule 12.5 mg PO QAM RF: 0 loratadine 10 mg Tablet 10 mg PO QAM RF: 0 quetiapine 25 mg tablet 50 mg PO HS RF: 0 vitamin E 400 unit Capsule 400 unit PO DAILY RF: 0 escitalopram oxalate [Lexapro] 10 mg Tablet 10 mg PO QAM RF: 0 phenytoin sodium extended 100 mg capsule 100 mg PO TID RF: 0 losartan 100 mg tablet 100 mg PO QAM RF: 0 metformin 500 mg tablet 1,000 mg PO BID RF: 0 acetaminophen [Acetaminophen Extra Strength] 500 mg Tablet 500 mg PO Q4 MDD 6 tablets daily PRN (Reason: Fever Or Pain) RF: 0 multivitamin with minerals Tablet 1 tab PO QAM RF: 0 divalproex 250 mg tablet extended release 24 hr 500 mg PO BID RF: 0 diclofenac sodium [Voltaren] 1 % Gel 1 % EXT QID PRN (Reason: shoulder pain) Qty: 100 RF: 0 Discontinued amoxicillin-pot clavulanate [Augmentin] 875-125 mg tablet 1 tab PO BID Qty: 4 RF: 0 Stand-Alone Forms: [facility] Discharge Orders: Discharge Order (Routine); Ordered 10/13/18 Ordered By: Jane Yi Admission Data Admit Date/Time: 10/10/18 14:51 Attending Provider: Cam Rangel Admit Provider: Gloria Tang Primary Care Provider: Werner Beck Other Providers: Catalino Serra Service: Medical Other Interventions: Discharge Summary Assessment (RN) Last Done: 10/13/18 12:33 DC Date/Time DO NOT enter until pt leaves facility: 10/13/18 13:06
== END 2018-10-13 13:06 | disposition home health service (06) | DRG 194 ==
LOC: 2N 20:46 → ED 20:46 → SUATTDRO 10-09 02:33 → 2N 10-09 03:34

== ENCOUNTER 2019-03-01 07:18 | Inpatient (IN) ==
[2019-03-01] MEDS ORDERED: SODIUM CHLORIDE 0.9% 500 ML IV ONE (08:10)
[2019-03-01] MEDS ORDERED: ACETAMINOPHEN 1,000 MG/100 ML VIAL IV ONE (08:12)
[2019-03-01] MEDS ORDERED: PIPERACILLIN/TAZOBACTAM 4.5 GM/120 ML BAG IV STA (08:12)
[2019-03-01] MEDS ORDERED: SODIUM CHLORIDE 0.9% 1000ML 1,000 ML IV SCH (08:15)
--- NOTE | 2019-03-01 08:26 | Emergency Department Note ---
ED Visit Note I assisted Dr. Gil in the care of this patient. See attending note for further details. . Resident Activity Tracking Resident Involvement: Resident Care Provided Care Provided: Adult ED
--- NOTE | 2019-03-01 08:33 | XRay Report ---
XR chest 1V portable CLINICAL HISTORY: 88 years-old Male presenting with fever, aspiration. TECHNIQUE: Portable upright AP view of the chest was obtained. COMPARISON: 11/08/2018. FINDINGS: Atherosclerosis of the aortic arch. Tortuosity of the thoracic aorta. Cardiac silhouette enlarged. Lo culated moderate right pleural effusion unchanged. Increasing left basilar opacity. No pneumothorax. Osseous structures normal. Upper abdomen normal. IMPRESSION: 1. Loculated moderate right pleural effusion. Sterility cannot be confirmed. 2. Increasing left basilar infiltrate, pneumonia not excluded though this could represent atelectasi s. Electronically signed by: Lenard Ko M.D. 03/01/2019 8:32 AM
[2019-03-01 08:35] LABS: Basophils # (auto) 0.02 K/uL (0-0.2); Basophils % (auto) 0.2 %; Eosinophils # (auto) 0.09 K/uL (0-0.5); Eosinophils % (auto) 0.8 %; Hematocrit (blood only) 39.6 % (42-52); Hemoglobin 13.3 g/dL (14.0-18.0); Immature Granulocytes # (auto) 0.05 K/uL (0.00-0.02); Immature Granulocytes % (auto) 0.4 %; Lymphocytes # (auto) 1.59 K/uL (1.2-3.4); Lymphocytes % (auto) 13.9 %; Mean Corpuscular Hgb Conc 33.6 g/dL (32-36); Mean Corpuscular Volume 97.3 fL (80-100); Mean Platelet Volume 10.6 fL (7.4-10.4); Monocytes # (auto) 0.68 K/uL (0.11-0.59); Neutrophils # (auto) 8.97 K/uL (1.4-6.5); Neutrophils % (auto) 78.7 %; Platelet Count 238 K/uL (130-400); RDW Coefficient of Variation 13.3 % (11.5-14.5); RDW Standard Deviation 47.2 fL (36.4-46.3); Red Blood Count 4.07 M/uL (4.7-6.1)
[2019-03-01 08:38] LABS: Albumin Level 3.3 gm/dl (3.4-5.0); BUN Creatinine Ratio 21.2 (10-20); Calcium 9.3 mg/dl (8.5-10.1); Creatinine Clr Calc Pharmacy 61.7 ml/min; Est GFR (African American) 89.3; Est GFR (Non-African American) 77.1; Potassium 4.1 mmol/L (3.5-5.1)
[2019-03-01 08:41] LABS: Albumin Globulin Ratio 0.7 (0.9-2); Bilirubin,Total 0.3 mg/dl (0.2-1); Globulin 4.5 gm/dl (2.5-4.0); Total Protein 7.8 gm/dl (6.4-8.2)
[2019-03-01 08:42] LABS: INR 1.1 (0.9-1.1); Prothrombin Time 11.3 Seconds (9.0-12.0)
[2019-03-01 08:59] LABS: Appearance Urine Clear (Clear); Bacteria Urine Automated Negative (Negative); Bilirubin Urine Negative (Negative); Blood Urine Negative (Negative); Cast Urine Automated 0 /lpf (0-5); Color Urine Yellow; Glucose Urine UA Trace (Negative); Ketones Urine Trace (Negative); Leukocyte Esterase Urine Negative (Negative); Nitrite Urine Negative (Negative); Specific Gravity Urine 1.014 (1.000-1.030); Urobilinogen Urine Negative (Negative); pH Urine >= 9.0 (4.5-7.5)
[2019-03-01 09:11] LABS: Protein Urine Negative (Negative)
--- NOTE | 2019-03-01 09:43 | CT Scan Report ---
CT head/brain wo con CLINICAL HISTORY: 88 years-old Male presenting with AMS. TECHNIQUE: Multidetector CT imaging of the head was performed without the use of intravenous contrast . IV contrast: None. One or more dose lowering techniques were used consistent with the principles of ALARA (as low as reasonably achievable), including automatic exposure control, mA or kV adjustment t o individual patient size, and/or use of iterative reconstruction. COMPARISON: 06/21/2018. CT DOSE (mGy.cm): The estimated cumulative dose is 614.27 mGy.cm. FINDINGS: Hair Boiler Operator topogram: Unremarkable. Proportional ventricular and sulcal prominence, likely age-related parenchymal volume loss. No hemorr rainer. Periventricular and subcortical white matter hypoattenuation, nonspecific but likely indicative of chronic small vessel ischemic change. Old infarct in the right occipital lobe. No acute territori al infarct. No mass effect or midline shift. No extra-axial fluid collection. Paranasal sinuses and m astoid air cells clear. Calvarium intact. IMPRESSION: 1. No significant change compared to the prior study. No acute intracranial abnormality. Electronically signed by: Lenard Ko M.D. 03/01/2019 9:42 AM
--- NOTE | 2019-03-01 09:50 | CT Scan Report ---
CT chest wo con CLINICAL HISTORY: 88 years-old Male presenting with PNA, effusion. TECHNIQUE: Multidetector CT imaging of the chest was performed without the use of intravenous contras t. IV contrast: None. One or more dose lowering techniques were used consistent with the principles o f ALARA (as low as reasonably achievable), including automatic exposure control, mA or kV adjustment to individual patient size, and/or use of iterative reconstruction. COMPARISON: 08/24/2018. CT DOSE (mGy.cm): The estimated cumulative dose is 611.70 mGy.cm. FINDINGS: Corn Chip Maker topogram: Loculated right pleural effusion. Soft tissues: Normal thyroid and thoracic inlet. Gynecomastia. No axillary, supraclavicular, or media stinal lymphadenopathy. Scattered nonspecific subcentimeter mediastinal lymph nodes. Evaluation of th e preeti limited without intravenous contrast. Atherosclerosis of the aorta. Mild multichamber enlargem ent of the heart. Coronary artery and aortic valve calcification. Loculated right moderate pleural ef fusion similar to prior exam with associated pleural thickening and pleural calcification. No left pl eural or pericardial effusion. Gallstone suspected. Lungs and airways: No pneumothorax. Mild bronchial wall thickening and subsegmental endobronchial oriana ris in the lower lobes greater on the right. Pulmonary arteries mildly enlarged relative to adjacent bronchi. No interlobular septal thickening noted at the apices and lung bases, right greater than lef t. Patchy superimposed groundglass opacities with an apical predominance. Mild upper lobe predominant centrilobular emphysema. Bandlike opacities in the right lower lobe likely scarring. Musculoskeletal: Degenerative changes of the spine. Hemangioma suspected in the T8 vertebral body. IMPRESSION: 1. Mild superimposed patchy groundglass infiltrates in the upper lobes concerning for an acute infec tious or inflammatory pneumonitis. 2. Mild venolymphatic congestive change in the setting of cardiomegaly. No heather pulmonary edema. 3. Chronic loculated right pleural effusion. Associated scarring in the right lower lobe. 4. Emphysema. Electronically signed by: Lenard Ko M.D. 03/01/2019 9:48 AM
[2019-03-01] MEDS ORDERED: ONDANSETRON INJ 2 MG/ML 2 ML VIAL IV PRN (12:45)
[2019-03-01] MEDS ORDERED: PIPERACILL/TAZOBAC CONSULT ACTIVE PRN (12:45)
[2019-03-01] MEDS ORDERED: DICLOFENAC SOD 1% GEL 100 GM TUBE EXT PRN (12:45)
[2019-03-01] MEDS: INSULIN ASPART 100 UNITS/ML 3 ML PEN SC SCH ×3 (13:35→21:18)
[2019-03-01] MEDS: PHENYTOIN SODIUM ER 100 MG CAP PO SCH ×2 (13:52→21:14)
[2019-03-01] MEDS: SODIUM CHLORIDE 0.9% 1000ML 1,000 ML IV SCH (13:52)
[2019-03-01] MEDS: HEPARIN SOD 5,000 UNIT/0.5 ML VIAL SQ SCH ×2 (13:52→21:14)
[2019-03-01] MEDS: PIPERACILLIN/TAZOBACTAM 3.375 GM in DEXTROSE 5% 100 ML IV SCH ×2 (13:53→21:57)
--- NOTE | 2019-03-01 14:14 | History & Physical Report ---
Date of Service March 01, 2019 Assessment & Plan (1) Aspiration pneumonia: aspirated this morning after vomiting CT chest with bilateral upper lobe pneumonitis will treat with Zosyn IV vitals stable, on 3L NC which he wears chronically IV fluids admit to tele for the first 24-48 hours repeat lactic acid (2) Altered mental status: due to pneumonia typically the patient will present with PNA or UTI or post ictal altered for a few days and then recovers supportive care with IV fluids and antibiotics this would represent metabolic encephalopathy (3) Weakness: will consult PT/OT once able to participate in care (4) COPD (chronic obstructive pulmonary disease): no wheezing, continue nebulizer treatments (5) HTN (hypertension): hold Losartan and HCTZ in setting of acute infection (6) Hyperlipidemia: continue statin (7) Chronic respiratory failure with hypoxia: stable on 3L NC which he wears continuously (8) Seizure disorder: continue on Phenytoin and Depakote (9) Chronic UTI: typically on Nitrofurantoin will hold since he will be on Zosyn (10) DM type 2 (diabetes mellitus, type 2): DM diet Novolog SS (11) Pleural effusion: chronic, stable History of Present Illness Chief Complaint: coughing a lot, per family, he cannot tell me Primary Care Provider: Reno Beck MD 88 yo male with history of aspiration pneumonia, chronic UTI, seizure disorder who lives at home with , comes to the ED this morning after vomiting early in the morning. and daughter report that he was doing really well yesterday. He was sleeping in his recliner chair so he can be more upright, this is normal for him. His said that he vomited around 5am, she found him with vomit down his right side and arm with head turned to that side. He was coughing a lot and had some difficulty breathing, he remained on his 3L of oxygen which is chronic. Has a history of aspiration pneumonia, swallow studies in the past have recommended soft diet, nectar thick liquids. Family called EMS and brought him to the ED. Again, this was an abrupt change in status for the patient, he was doing well the past few weeks. He will ambulate to the restroom but uses a urinal at home as well. He is eating well. Never had fever or chills. Had not been vomiting, this is isolated episode. Never had any chest pain. Has not had seizure activity in some time. Compliant with medications. In the ED his vitals were stable. CT chest showed bilateral upper lobe pneumonitis, chronic right sided pleural effusion. Given IV fluids and started on antibiotics. Allergies Allergy/AdvReac Type Severity Reaction Status Date / Time lorazepam [From Ativan] AdvReac Mild Agitated - Verified 03/01/19 12:48 paradoxical response Home Medications Home Medications Medication Instructions Recorded Confirmed Type aspirin [Aspir-81] 81 mg PO QAM 06/21/18 03/01/19 History diltiazem HCl 240 mg PO QAM 06/21/18 03/01/19 History hydrochlorothiazide 12.5 mg PO QAM 06/21/18 03/01/19 History loratadine 10 mg PO QAM 06/21/18 03/01/19 History nitrofurantoin macrocrystal 50 mg PO QPM 06/21/18 03/01/19 History metformin 1,000 mg PO BID 08/19/18 03/01/19 History phenytoin sodium extended 100 mg PO TID 08/19/18 03/01/19 History acetaminophen [Acetaminophen Extra 500 mg PO Q4 PRN MDD 6 tablets 08/20/18 03/01/19 History Strength] daily multivitamin with minerals 1 tab PO QAM 08/20/18 03/01/19 History divalproex 500 mg PO QAM 09/27/18 03/01/19 History diclofenac sodium [Voltaren] 1 % EXT QID PRN #100 gm 10/02/18 03/01/19 Rx levalbuterol tartrate 2 puffs INH Q6H PRN #15 gm 10/13/18 03/01/19 Rx escitalopram 5 mg tablet 5 mg PO DAILY #90 tab 01/22/19 03/01/19 Rx atorvastatin 40 mg tablet 40 mg PO HS #90 tab 01/27/19 03/01/19 Rx losartan 100 mg tablet 100 mg PO QAM #90 tab 01/27/19 03/01/19 Rx divalproex 750 mg PO HS 03/01/19 03/01/19 History Past Med/Surg History Medical History HCAP (healthcare-associated pneumonia) Insomnia Mild dementia Anxiety Anemia Physical deconditioning History of CVA (cerebrovascular accident) Chronic respiratory failure with hypoxia (Chronic) Seizure disorder (Chronic) Pleural effusion (Chronic) Chronic UTI DM type 2 (diabetes mellitus, type 2) (Chronic) Chronic UTI (Chronic) DM type 2 (diabetes mellitus, type 2) (Chronic) Dyslipidemia (Chronic) Pleural effusion, right (Chronic) Seizures (Chronic) Stroke (Resolved) Acute hyperglycemia Complex partial seizure Elevated WBC count Elevated lactic acid level Metabolic encephalopathy Surgical History History of thoracentesis (Resolved) S/P thoracentesis Family History Other Hypertension Social History Preferred Language: Faroese Communication Ability: Effective Bellows Assembler Required: Yes Beliefs That Will Affect Care: None marital status: Current Living Situation: Spouse current occupational status: retired Other Information That Helps Us Care for You: No Feels Safe at Home: Yes Safety Concerns: Feels Safe At This Time Smoking Status: Former smoker Second Hand Exposure: No Hx Alcohol Use: No Hx Substance Use: No Review of Systems Review of Systems: Unobtainable due to cognitive status Physical Exam Constitutional: WD/WN, vitals as above + thin and + lethargic; not in distress Eyes: PERRL, conjunctivae normal, anicteric sclerae ENMT: external ear and nose normal, oropharynx normal Neck: trachea midline, no thyromegaly Respiratory: normal respiratory effort; no respiratory distress Auscult ation: + diminished lung sounds and + rhonchi (bilaterally); no crackles, no rales and no wheezes Cardiovascular: RRR, no murmur, no edema Gastrointestinal (Abdomen): normal bowel sounds, soft, nontender, no hepatosplenomegaly Musculoskeletal: no cyanosis or clubbing, extremities motor strength 5/5 Skin: no rashes, warm and dry Neurologic: PERRL, EOMI, accommodation nl, no face palsy, no dysarthria Psychiatric: Orientation: oriented to person; + not oriented to place and + not oriented to time Lymphatic: no cervical or axillary lymphadenopathy Results & Data Vital Signs (Past 12 Hours) Vital Signs Temp Pulse Pulse Resp BP BP Pulse Ox 03/01/19 13:00 03/01/19 12:54 36.7 C 93 H 18 129/68 95 03/01/19 12:10 37.2 C 79 15 118/68 97 03/01/19 11:41 16 99 03/01/19 10:37 77 16 118/68 99 03/01/19 09:15 86 16 134/75 98 03/01/19 08:34 96 03/01/19 08:32 92 H 16 141/77 H 97 03/01/19 07:35 37.6 C H 98 H 18 165/111 H 96 Pulse Ox 03/01/19 13:00 94 03/01/19 12:54 03/01/19 12:10 03/01/19 11:41 03/01/19 10:37 03/01/19 09:15 03/01/19 08:34 03/01/19 08:32 03/01/19 07:35 Laboratory Results Laboratory Results - last 24 hr 03/01/19 03/01/19 03/01/19 07:20 07:43 07:49 WBC RBC Hgb Hct MCV MCH MCHC RDW Std Deviation RDW Coeff of Rae Plt Count MPV Immature Gran % (Auto) Neut % (Auto) Lymph % (Auto) [place] % (Auto) Eos % (Auto) Baso % (Auto) Immature Gran # (Auto) Neut # (Auto) Lymph # (Auto) [place] # (Auto) Eos # (Auto) Baso # (Auto) PT 11.3 INR 1.1 Sodium Potassium Chloride Carbon Dioxide Anion Gap BUN Creatinine Est Cr Clr Drug Dosing Est GFR ( Amer) Est GFR (Non-Af Amer) BUN/Creatinine Ratio Glucose POC Glucose POC Lactic Acid Davon 4.37 H Lactate Calcium Total Bilirubin AST ALT Alkaline Phosphatase Total Protein Albumin Globulin Albumin/Globulin Ratio Urine Color Yellow Urine Appearance Clear Urine pH >= 9.0 H Ur Specific [place] 1.014 Urine Protein Negative Urine Glucose (UA) Trace H Urine Ketones Trace H Urine Blood Negative Urine Nitrite Negative Urine Bilirubin Negative Urine Urobilinogen Negative Ur Leukocyte Esterase Negative Urine WBC (Auto) 1-5 Urine RBC (Auto) 5-10 H U Hyaline Cast (Auto) 0 U Epithel Cells (Auto) 5-10 H Urine Bacteria (Auto) Negative 03/01/19 03/01/19 03/01/19 07:49 07:49 13:02 WBC 11.40 H RBC 4.07 L Hgb 13.3 L Hct 39.6 L MCV 97.3 MCH 32.7 MCHC 33.6 RDW Std Deviation 47.2 H RDW Coeff of Rae 13.3 Plt Count 238 MPV 10.6 H Immature Gran % (Auto) 0.4 Neut % (Auto) 78.7 Lymph % (Auto) 13.9 [place] % (Auto) 6.0 Eos % (Auto) 0.8 Baso % (Auto) 0.2 Immature Gran # (Auto) 0.05 H Neut # (Auto) 8.97 H Lymph # (Auto) 1.59 [place] # (Auto) 0.68 H Eos # (Auto) 0.09 Baso # (Auto) 0.02 PT INR Sodium 138 Potassium 4.1 Chloride 99 Carbon Dioxide 33 H Anion Gap 7.0 BUN 19 H Creatinine 0.90 Est Cr Clr Drug Dosing 61.7 Est GFR ( Amer) 89.3 Est GFR (Non-Af Amer) 77.1 BUN/Creatinine Ratio 21.2 H Glucose 170 H POC Glucose POC Lactic Acid Davon Lactate 3.1 H* Calcium 9.3 Total Bilirubin 0.3 AST 17 ALT 29 Alkaline Phosphatase 73 Total Protein 7.8 Albumin 3.3 L Globulin 4.5 H Albumin/Globulin Ratio 0.7 L Urine Color Urine Appearance Urine pH Ur Specific [place] Urine Protein Urine Glucose (UA) Urine Ketones Urine Blood Urine Nitrite Urine Bilirubin Urine Urobilinogen Ur Leukocyte Esterase Urine WBC (Auto) Urine RBC (Auto) U Hyaline Cast (Auto) U Epithel Cells (Auto) Urine Bacteria (Auto) 03/01/19 13:28 WBC RBC Hgb Hct MCV MCH MCHC RDW Std Deviation RDW Coeff of Rae Plt Count MPV Immature Gran % (Auto) Neut % (Auto) Lymph % (Auto) [place] % (Auto) Eos % (Auto) Baso % (Auto) Immature Gran # (Auto) Neut # (Auto) Lymph # (Auto) [place] # (Auto) Eos # (Auto) Baso # (Auto) PT INR Sodium Potassium Chloride Carbon Dioxide Anion Gap BUN Creatinine Est Cr Clr Drug Dosing Est GFR ( Amer) Est GFR (Non-Af Amer) BUN/Creatinine Ratio Glucose POC Glucose 109 H POC Lactic Acid Davon Lactate Calcium Total Bilirubin AST ALT Alkaline Phosphatase Total Protein Albumin Globulin Albumin/Globulin Ratio Urine Color Urine Appearance Urine pH Ur Specific [place] Urine Protein Urine Glucose (UA) Urine Ketones Urine Blood Urine Nitrite Urine Bilirubin Urine Urobilinogen Ur Leukocyte Esterase Urine WBC (Auto) Urine RBC (Auto) U Hyaline Cast (Auto) U Epithel Cells (Auto) Urine Bacteria (Auto) Diagnostic Findings CT chest IMPRESSION: 1. Mild superimposed patchy groundglass infiltrates in the upper lobes concerning for an acute infectious or inflammatory pneumonitis. 2. Mild venolymphatic congestive change in the setting of cardiomegaly. No heather pulmonary edema. 3. Chronic loculated right pleural effusion. Associated scarring in the right lower lobe. 4. Emphysema. XR chest 1V portable IMPRESSION: 1. Loculated moderate right pleural effusion. Sterility cannot be confirmed. 2. Increasing left basilar infiltrate, pneumonia not excluded though this could represent atelectasis. CT head IMPRESSION: 1. No significant change compared to the prior study. No acute intracranial abnormality. Code Status & VTE Plan Code Status full code, discussed with patient's VTE Prophylaxis Plan VTE Prophylaxis will be ordered: Yes PG Care Time/CCT Total # of Minutes Spent Total Time Spent with Patient: Total time spent is greater than 50% in coordination of care (as documented) at patient's floor/unit and/or counseling patient: (1) DM type 2 (diabetes mellitus, type 2) Diabetes mellitus complication status: without complication Diabetes mellitus exterminator termite insulin use: without fci use Qualified Code(s): E11.9 - Type 2 diabetes mellitus without complications (2) Altered mental status Altered mental status type: unspecified Qualified Code(s): R41.82 - Altered mental status, unspecified (3) COPD (chronic obstructive pulmonary disease) COPD type: unspecified COPD Qualified Code(s): J44.9 - Chronic obstructive pulmonary disease, unspecified
--- NOTE | 2019-03-01 16:14 | Emergency Department Note ---
Entered by Mary Mcbride acting as a scribe for Jo Ann Gil MD History of Present Illness General Chief complaint: Confusion Time Seen by Provider: 03/01/19 07:40 Source: patient and family () History of Present Illness Onset (ago): hour(s) (this morning) Location: head Pain Consistency: + other (episode) Quality: + other (confusion) Associated symptoms: + denies other symptoms (seizure-like activity, ulcers/lesions on skin, pain, falls) and + other (grunting, vomiting (resolved), change in mental status, fatigue) The patient is a 88 year old male with a history of hypertension, diabetes, seizures, and dementia that is presenting to the Emergency Room with complaints of an episode of confusion that occurred this morning. The patients reports that she found the patient in his liftchair this morning with mucous and vomit on his shoulder. His states that the patient was grunting and that he was confused when she woke him up. His denies that the patient was showing any seizure-like activity at that time. His denies that the patient fell at all this morning prior to the episode. His notes that the patient wears Depends diapers at night and states that they were wet with urine this morning. The patients denies that the patient has any lesions or ulcers on his back. His notes that the patient has a history of seizures that have been well-controlled since his last episode in 2009. His states that the patient has a history of dementia since his last seizure episode and that he is pleasa ntly confused but alert at baseline. His notes that the patients current mental status is different from his baseline. His reports that the patient wears 3L of O2 at home for his history of COPD. His denies that the patient has any history of CAD or IA. The patients notes that the patient has a history of UTIs. His reports that the patient had pneumonia 3 times this past winter. His states that the patient has a history of prostate issues. The patient denies any pain currently and notes that he feels tired. He is unable to state where he is or what year it is. He is able to state his name. Home Medications Home Medications Medication Instructions Recorded Confirmed Type aspirin [Aspir-81] 81 mg PO QAM 06/21/18 03/01/19 History diltiazem HCl 240 mg PO QAM 06/21/18 03/01/19 History hydrochlorothiazide 12.5 mg PO QAM 06/21/18 03/01/19 History loratadine 10 mg PO QAM 06/21/18 03/01/19 History nitrofurantoin macrocrystal 50 mg PO QPM 06/21/18 03/01/19 History metformin 1,000 mg PO BID 08/19/18 03/01/19 History phenytoin sodium extended 100 mg PO TID 08/19/18 03/01/19 History acetaminophen [Acetaminophen Extra 500 mg PO Q4 PRN MDD 6 tablets 08/20/18 03/01/19 History Strength] daily multivitamin with minerals 1 tab PO QAM 08/20/18 03/01/19 History divalproex 500 mg PO QAM 09/27/18 03/01/19 History diclofenac sodium [Voltaren] 1 % EXT QID PRN #100 gm 10/02/18 03/01/19 Rx levalbuterol tartrate 2 puffs INH Q6H PRN #15 gm 10/13/18 03/01/19 Rx escitalopram 5 mg tablet 5 mg PO DAILY #90 tab 01/22/19 03/01/19 Rx atorvastatin 40 mg tablet 40 mg PO HS #90 tab 01/27/19 03/01/19 Rx losartan 100 mg tablet 100 mg PO QAM #90 tab 01/27/19 03/01/19 Rx divalproex 750 mg PO HS 03/01/19 03/01/19 History Allergies Allergy/AdvReac Type Severity Reaction Status Date / Time lorazepam [From Ativan] AdvReac Mild Agitated - Verified 03/01/19 12:48 paradoxical response Past Med/Surg History Medical History HCAP (healthcare-associated pneumonia) Insomnia Mild dementia Anxiety Anemia Physical deconditioning History of CVA (cerebrovascular accident) Chronic respiratory failure with hypoxia (Chronic) Seizure disorder (Chronic) Pleural effusion (Chronic) Chronic UTI DM type 2 (diabetes mellitus, type 2) (Chronic) Chronic UTI (Chronic) DM type 2 (diabetes mellitus, type 2) (Chronic) Dyslipidemia (Chronic) Pleural effusion, right (Chronic) Seizures (Chronic) Stroke (Resolved) Acute hyperglycemia Complex partial seizure Elevated WBC count Elevated lactic acid level Metabolic encephalopathy Surgical History History of thoracentesis (Resolved) S/P thoracentesis Family History Other Hypertension Social History Preferred Language: Montserratian Communication Ability: Effective 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 and A total of 10 systems reviewed and were otherwise negative Physical Exam Vital Signs Vital Signs - 24 hr 03/01/19 07:35 03/01/19 08:32 03/01/19 08:34 Temperature 37.6 C H Temperature Source Oral Sepsis Recent Fever Within 48 Hours No Sepsis New/Unexplained Change in Mental Status No Sepsis Action Taken by Nursing No Action Required Pulse Rate 98 H Pulse Rate [Apical] 92 H Respiratory Rate 18 16 Blood Pressure 165/111 H Blood Pressure [Right Arm] 141/77 H Blood Pressure Mean 129 Blood Pressure Mean [Right Arm] 98 Pulse Oximetry 96 97 96 Oxygen Delivery Method Nasal Cannula Room Air Nasal Cannula Oxygen Flow Rate 2 2 03/01/19 09:15 03/01/19 10:37 Temperature Temperature Source Sepsis Recent Fever Within 48 Hours Sepsis New/Unexplained Change in Mental Status Sepsis Action Taken by Nursing Pulse Rate Pulse Rate [Apical] 86 77 Respiratory Rate 16 16 Blood Pressure Blood Pressure [Right Arm] 134/75 118/68 Blood Pressure Mean Blood Pressure Mean [Right Arm] 94 84 Pulse Oximetry 98 99 Oxygen Delivery Method Nasal Cannula Room Air Oxygen Flow Rate 2 Vital signs reviewed. General: Critically-ill appearing elderly male on nasal cannula oxygen, in no significant distress. HEENT: No scleral icterus, PERRLA, neck supple. Atraumatic. Cardiovascular: Regular rate and rhythm, no extra sounds. Pulmonary: Basilar crackles bilaterally. Abdomen: Soft, nontender, nondistended, positive bowel sounds. Musculoskeletal: Atraumatic. Minimal peripheral edema. Neurologic:Somnolent but arousable. Answers some questions regarding name appropriately but unable to answer time or location. Skin: Warm, dry, no rash. Course 0745: The patient was seen and evaluated by the Resident Physician at this time. History and physical were discussed with me. 0853:The patient was evaluated in room A10. A complete history and physical examination was performed. 1010: I updated the patient's family on the patient's current lab and imaging results. The patient is sleeping comfortably at this time. 1030: I discussed the patients case with Dr. Lamont Levy, [facility], wh o will evaluate the patient for further management and care. 1040: Upon reevaluation, the patient is resting comfortably. I discussed laboratory and radiographic results with the patient and his family. They verbalized agreement of the treatment plan. The patient will be evaluated for further management and care. Consultations Consultation #1: I discussed the patients case with Dr. Lamont Levy, [facility], who will evaluate the patient for further management and care. Time: 10:40 Administered Medications Acetaminophen (Tylenol) 650 mg PO Q4H PRN PRN Reason: Pain or Fever Stop: 03/31/19 12:44 Last Admin: 03/03/19 09:48 Dose: 650 mg Documented by: [id number] Cosigned by: [id number] Aspirin (Ecotrin Ectab) [address] [facility] Stop: 04/01/19 08:59 Last Admin: 03/03/19 08:57 Dose: 81 mg Documented by: [id number] Cosigned by: [id number] Admin: 03/02/19 07:48 Dose: 81 mg Documented by: [id number] Atorvastatin Calcium (Lipitor) 40 mg PO [facility] Stop: 03/31/19 20:59 Last Admin: 03/02/19 21:03 Dose: 40 mg Documented by: [id number] Admin: 03/01/19 21:14 Dose: 40 mg Documented by: [id number] Diltiazem HCl (Cardizem Cd) [address] [facility] Stop: 04/01/19 08:59 Last Admin: 03/03/19 08:56 Dose: 240 mg Documented by: [id number] Cosigned by: [id number] Admin: 03/02/19 07:48 Dose: 240 mg Documented by: [id number] Divalproex Sodium (Depakote Extended Release) [address] [facility] Stop: 04/01/19 08:59 Last Admin: 03/03/19 08:56 Dose: 500 mg Documented by: [id number] Cosigned by: [id number] Admin: 03/02/19 07:48 Dose: 500 mg Documented by: [id number] Divalproex Sodium (Depakote Extended Release) 750 mg PO HS [facility] Stop: 03/31/19 20:59 Last Admin: 03/02/19 21:03 Dose: 750 mg Documented by: [id number] Admin: 03/01/19 21:13 Dose: 750 mg Documented by: [id number] Escitalopram Oxalate (Lexapro Tab) 5 mg PO DAILY [facility] Stop: 04/01/19 08:59 Last Admin: 03/03/19 08:57 Dose: 5 mg Documented by: [id number] Cosigned by: [id number] Admin: 03/02/19 07:48 Dose: 5 mg Documented by: [id number] Heparin Sodium (Porcine) (Heparin Sodium (Porcine)) 5,000 units SQ Q8 VOLODYMYR Stop: 03/31/19 13:59 Last Admin: 03/03/19 13:31 Dose: 5,000 units Documented by: [id number] Cosigned by: [id number] Admin: 03/03/19 05:47 Dose: 5,000 units Documented by: [id number] Cosigned by: [id number] Admin: 03/02/19 21:35 Dose: 5,000 units Documented by: [id number] Cosigned by: [id number] Admin: 03/02/19 13:52 Dose: 5,000 units Documented by: [id number] Cosigned by: [id number] Admin: 03/02/19 05:44 Dose: 5,000 units Documented by: [id number] Cosigned by: [id number] Admin: 03/01/19 21:14 Dose: 5,000 units Documented by: [id number] Cosigned by: [id number] Admin: 03/01/19 13:52 Dose: 5,000 units Documented by: [id number] Cosigned by: [id number] Piperacillin Sod/Tazobactam (Sod 3.375 gm/ Dextrose) 115 mls @ 28.75 mls/hr IV Q8H [facility]; Protocol Stop: 03/08/19 13:59 Last Infusion: 03/03/19 09:20 Dose: 0 mls/hr Documented by: [id number] Admin: 03/03/19 05:47 Dose: 28.8 mls/hr Documented by: [id number] Infusion: 03/03/19 01:29 Dose: 0 mls/hr Documented by: [id number] Admin: 03/02/19 21:34 Dose: 28.8 mls/hr Documented by: [id number] Infusion: 03/02/19 17:57 Dose: 0 mls/hr Documented by: [id number] Admin: 03/02/19 13:52 Dose: 28.8 mls/hr Documented by: [id number] Infusion: 03/02/19 09:53 Dose: 0 mls/hr Documented by: [id number] Admin: 03/02/19 05:44 Dose: 28.8 mls/hr Documented by: [id number] Infusion: 03/02/19 01:57 Dose: 0 mls/hr Documented by: [id number] Admin: 03/01/19 21:57 Dose: 28.8 mls/hr Documented by: [id number] Infusion: 03/01/19 17:53 Dose: 0 mls/hr Documented by: [id number] Admin: 03/01/19 13:53 Dose: 28.8 mls/hr Documented by: [id number] Insulin Aspart (Novolog Flexpen) 0 units SC ACHS VOLODYMYR Stop: 03/31/19 12:44 Last Admin: 03/03/19 13:22 Dose: 4 units Documented by: [id number] Cosigned by: [id number] Admin: 03/03/19 09:25 Dose: 5 units Documented by: [id number] Cosigned by: [id number] Admin: 03/02/19 21:35 Dose: Not Given Documented by: [id number] Cosigned by: [id number] Admin: 03/02/19 18:14 Dose: 4 units Documented by: [id number] Cosigned by: [id number] Admin: 03/02/19 12:48 Dose: 3 units Documented by: [id number] Cosigned by: [id number] Admin: 03/02/19 07:50 Dose: 1 units Documented by: [id number] Cosigned by: [id number] Admin: 03/01/19 21:18 Dose: Not Given Documented by: [id number] Admin: 03/01/19 17:22 Dose: 4 units Documented by: [id number] Cosigned by: [id number] Admin: 03/01/19 13:35 Dose: Not Given Documented by: [id number] Cosigned by: [id number] Loratadine (Claritin) 10 mg PO QAM V[facility] Stop: 04/01/19 08:59 Last Admin: 03/03/19 08:56 Dose: 10 mg Documented by: [id number] Cosigned by: [id number] Admin: 03/02/19 07:49 Dose: 10 mg Documented by: [id number] Phenytoin Sodium (Dilantin Er) 100 mg PO TID@0700,1400,2130 VOLODYMYR Stop: 03/31/19 13:59 Last Admin: 03/03/19 05:48 Dose: 100 mg Documented by: [id number] Admin: 03/02/19 21:03 Dose: 100 mg Documented by: [id number] Admin: 03/02/19 13:51 Dose: 100 mg Documented by: [id number] Admin: 03/02/19 07:48 Dose: 100 mg Documented by: [id number] Admin: 03/01/19 21:14 Dose: 100 mg Documented by: [id number] Admin: 03/01/19 13:52 Dose: 100 mg Documented by: [id number] Discontinued Medications Sodium Chloride (Nss 1000ml) 1,000 mls @ 125 mls/hr IV .Q8H VOLODYMYR Stop: 03/01/19 16:14 Last Infusion: 03/01/19 13:50 Dose: 0 mls/hr Documented by: [id number] Admin: 03/01/19 09:13 Dose: 125 mls/hr Documented by: [id number] Sodium Chloride (Nss) 500 mls @ 999 mls/hr IV .Q31M ONE Stop: 03/01/19 08:40 Last Infusion: 03/01/19 09:54 Dose: 0 mls/hr Documented by: [id number] Admin: 03/01/19 09:13 Dose: 999 mls/hr Documented by: [id number] Piperacillin Sod/Tazobactam Sod (Zosyn) 4.5 gm in 120 mls @ 200 mls/hr IV NOW STA Stop: 03/01/19 08:47 Last Infusion: 03/01/19 09:54 Dose: 0 mls/hr Documented by: [id number] Admin: 03/01/19 09:13 Dose: 200 mls/hr Documented by: [id number] Acetaminophen (Ofirmev) 1,000 mg in 100 mls @ 400 mls/hr IV NOW ONE Stop: 03/01/19 08:26 Last Infusion: 03/01/19 09:54 Dose: 0 mls/hr Documented by: [id number] Admin: 03/01/19 09:13 Dose: 400 mls/hr Documented by: [id number] Sodium Chloride (Nss 1000ml) 1,000 mls @ 80 mls/hr IV .[id number] VOLODYMYR Stop: 03/31/19 12:44 Last Infusion: 03/02/19 09:02 Dose: 0 mls/hr Documented by: [id number] Admin: 03/02/19 00:48 Dose: 80 mls/hr Documented by: [id number] Infusion: 03/02/19 00:48 Dose: 80 mls/hr Documented by: [id number] Admin: 03/01/19 13:52 Dose: 80 mls/hr Documented by: [id number] Potassium Chloride (Klor-Con M20) 40 meq PO 1015 ONE Stop: 03/03/19 10:16 Last Admin: 03/03/19 12:11 Dose: 40 meq Documented by: [id number] Cosigned by: [id number] Medical Decision Making Differential Diagnosis Differential diagnosis: Etiologies such as metabolic, infection, hypo/hyperglycemia, electrolyte abnormalities, cardiac sources, intracerebral event, toxicologic, neurologic, as well as others were entertained. Medical Records Attestation: I reviewed the patient's medical records. Home Medications Current Medication List: was personally reviewed by me Laboratory Data Attestation: I reviewed the patient's lab results. Result diagrams: 03/03/19 05:11 03/03/19 05:11 Lab Results 03/01/19 03/01/19 03/01/19 Range/Units 07:20 07:43 07:49 WBC (4.8-10.8) K/uL RBC (4.7-6.1) M/uL Hgb (14.0-18.0) g/dL Hct (42-52) % MCV (80-100) fL MCH (25-34) pg MCHC (32-36) g/dL RDW Std Deviation (36.4-46.3) fL RDW Coeff of Rae (11.5-14.5) % Plt Count (130-400) K/uL MPV (7.4-10.4) fL Immature Gran % (Auto) % Neut % (Auto) % Lymph % (Auto) % Union % (Auto) % Eos % (Auto) % Baso % (Auto) % Immature Gran # (Auto) (0.00-0.02) K/uL Neut # (Auto) (1.4-6.5) K/uL Lymph # (Auto) (1.2-3.4) K/uL Union # (Auto) (0.11-0.59) K/uL Eos # (Auto) (0-0.5) K/uL Baso # (Auto) (0-0.2) K/uL PT 11.3 (9.0-12.0) Seconds INR 1.1 (0.9-1.1) Sodium (136-145) mmol/L Potassium (3.5-5.1) mmol/L Chloride (98-107) mmol/L Carbon Dioxide (21-32) mmol/L Anion Gap (3-11) BUN (7-18) mg/dl Creatinine (0.6-1.4) mg/dl Est Cr Clr Drug Dosing ml/min Est GFR ( Amer) Est GFR (Non-Af Amer) BUN/Creatinine Ratio (10-20) Glucose (70-99) mg/dl POC Lactic Acid Davon 4.37 H (0.90-1.70) mmol/L Calcium (8.5-10.1) mg/dl Total Bilirubin (0.2-1) mg/dl AST (15-37) U/L ALT (12-78) U/L Alkaline Phosphatase (45-117) U/L Total Protein (6.4-8.2) gm/dl Albumin (3.4-5.0) gm/dl Globulin (2.5-4.0) gm/dl Albumin/Globulin Ratio (0.9-2) Urine Color Yellow Urine Appearance Clear (Clear) Urine pH >= 9.0 H (4.5-7.5) Ur Specific [place] 1.014 (1.000-1.030) Urine Protein Negative (Negative) Urine Glucose (UA) Trace H (Negative) Urine Ketones Trace H (Negative) Urine Blood Negative (Negative) Urine Nitrite Negative (Negative) Urine Bilirubin Negative (Negative) Urine Urobilinogen Negative (Negative) Ur Leukocyte Esterase Negative (Negative) Urine WBC (Auto) 1-5 (0-5) /hpf Urine RBC (Auto) 5-10 H (0-4) /hpf U Hyaline Cast (Auto) 0 (0-5) /lpf U Epithel Cells (Auto) 5-10 H (0-5) /lpf Urine Bacteria (Auto) Negative (Negative) 03/01/19 03/01/19 Range/Units 07:49 07:49 WBC 11.40 H (4.8-10.8) K/uL RBC 4.07 L (4.7-6.1) M/uL Hgb 13.3 L (14.0-18.0) g/dL Hct 39.6 L (42-52) % MCV 97.3 (80-100) fL MCH 32.7 (25-34) pg MCHC 33.6 (32-36) g/dL RDW Std Deviation 47.2 H (36.4-46.3) fL RDW Coeff of Rae 13.3 (11.5-14.5) % Plt Count 238 (130-400) K/uL MPV 10.6 H (7.4-10.4) fL Immature Gran % (Auto) 0.4 % Neut % (Auto) 78.7 % Lymph % (Auto) 13.9 % Union % (Auto) 6.0 % Eos % (Auto) 0.8 % Baso % (Auto) 0.2 % Immature Gran # (Auto) 0.05 H (0.00-0.02) K/uL Neut # (Auto) 8.97 H (1.4-6.5) K/uL Lymph # (Auto) 1.59 (1.2-3.4) K/uL Union # (Auto) 0.68 H (0.11-0.59) K/uL Eos # (Auto) 0.09 (0-0.5) K/uL Baso # (Auto) 0.02 (0-0.2) K/uL PT (9.0-12.0) Seconds INR (0.9-1.1) Sodium 138 (136-145) mmol/L Potassium 4.1 (3.5-5.1) mmol/L Chloride 99 (98-107) mmol/L Carbon Dioxide 33 H (21-32) mmol/L Anion Gap 7.0 (3-11) BUN 19 H (7-18) mg/dl Creatinine 0.90 (0.6-1.4) mg/dl Est Cr Clr Drug Dosing 61.7 ml/min Est GFR ( Amer) 89.3 Est GFR (Non-Af Amer) 77.1 BUN/Creatinine Ratio 21.2 H (10-20) Glucose 170 H (70-99) mg/dl POC Lactic Acid Davon (0.90-1.70) mmol/L Calcium 9.3 (8.5-10.1) mg/dl Total Bilirubin 0.3 (0.2-1) mg/dl AST 17 (15-37) U/L ALT 29 (12-78) U/L Alkaline Phosphatase 73 (45-117) U/L Total Protein 7.8 (6.4-8.2) gm/dl Albumin 3.3 L (3.4-5.0) gm/dl Globulin 4.5 H (2.5-4.0) gm/dl Albumin/Globulin Ratio 0.7 L (0.9-2) Urine Color Urine Appearance (Clear) Urine pH (4.5-7.5) Ur Specific [place] (1.000-1.030) Urine Protein (Negative) Urine Glucose (UA) (Negative) Urine Ketones (Negative) Urine Blood (Negative) Urine Nitrite (Negative) Urine Bilirubin (Negative) Urine Urobilinogen (Negative) Ur Leukocyte Esterase (Negative) Urine WBC (Auto) (0-5) /hpf Urine RBC (Auto) (0-4) /hpf U Hyaline Cast (Auto) (0-5) /lpf U Epithel Cells (Auto) (0-5) /lpf Urine Bacteria (Auto) (Negative) Imaging Data Radiologist's Impression: Radiology results as stated below per my review and the radiologist's interpretation: XR chest 1V portable CLINICAL HISTORY: 88 years-old Male presenting with fever, aspiration. TECHNIQUE: Portable upright AP view of the chest was obtained. COMPARISON: 11/08/2018. FINDINGS: Atherosclerosis of the aortic arch. Tortuosity of the thoracic aorta. Cardiac silhouette enlarged. Loculated moderate right pleural effusion unchanged. Increasing left basilar opacity. No pneumothorax. Osseous structures normal. Upper abdomen normal. IMPRESSION: 1. Loculated moderate right pleural effusion. Sterility cannot be confirmed. 2. Increasing left basilar infiltrate, pneumonia not excluded though this could represent atelectasis. Electronically signed by: Lenard Ko M.D. 03/01/2019 8:[address] head/brain wo con CLINICAL HISTORY: 88 years-old Male presenting with AMS. TECHNIQUE: Multidetector CT imaging of the head was performed without the use of intravenous contrast. IV contrast: None. One or more dose lowering techniques were used consistent with the principles of ALARA (as low as reasonably a chievable), including automatic exposure control, mA or kV adjustment to individual patient size, and/or use of iterative reconstruction. COMPARISON: 06/21/2018. CT DOSE (mGy.cm): The estimated cumulative dose is 614.27 mGy.cm. 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 Proportional ventricular and sulcal prominence, likely age-related parenchymal volume loss. No hemorrhage. Periventricular and subcortical white matter hypoattenuation, nonspecific but likely indicative of chronic small vessel ischemic change. Old infarct in the right occipital lobe. No acute territorial infarct. No mass effect or midline shift. No extra-axial fluid collection. Paranasal sinuses and mastoid air cells clear. Calvarium intact. IMPRESSION: 1. No significant change compared to the prior study. No acute intracranial abnormality. Electronically signed by: Lenard Ko M.D. 03/01/2019 9:[address] chest wo con CLINICAL HISTORY: 88 years-old Male presenting with PNA, effusion. TECHNIQUE: Multidetector CT imaging of the chest was performed without the use of intravenous contrast. IV contrast: None. One or more dose lowering techniques were used consistent with the principles of ALARA (as low as reasonably achievable), including automatic exposure control, mA or kV adjustment to individual patient size, and/or use of iterative reconstruction. COMPARISON: 08/24/2018. CT DOSE (mGy.cm): The estimated cumulative dose is 611.70 mGy.cm. 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 Soft tissues: Normal thyroid and thoracic inlet. Gynecomastia. No axillary, supraclavicular, or mediastinal lymphadenopathy. Scattered nonspecific subcentimeter mediastinal lymph nodes. Evaluation of the preeti limited without intravenous contrast. Atherosclerosis of the aorta. Mild multichamber enlargement of the heart. Coronary artery and aortic valve calcification. Loculated right moderate pleural effusion similar to prior exam with associated pleural thickening and pleural calcification. No left pleural or pericardial effusion. Gallstone suspected. Lungs and airways: No pneumothorax. Mild bronchial wall thickening and subsegmental endobronchial debris in the lower lobes greater on the right. Pulmonary arteries mildly enlarged relative to adjacent bronchi. No interlobular septal thickening noted at the apices and lung bases, right greater than left. Patchy superimposed groundglass opacities with an apical predominance. Mild upper lobe predominant centrilobular emphysema. Bandlike opacities in the right lower lobe likely scarring. Musculoskeletal: Degenerative changes of the spine. Hemangioma suspected in the T8 vertebral body. IMPRESSION: 1. Mild superimposed patchy groundglass infiltrates in the upper lobes concerning for an acute infectious or inflammatory pneumonitis. 2. Mild venolymphatic congestive change in the setting of cardiomegaly. No heather pulmonary edema. 3. Chronic loculated right pleural effusion. Associated scarring in the right lower lobe. 4. Emphysema. Electronically signed by: Lenard Ko M.D. 03/01/2019 9:48 AM ECG Data Attestation: I personally reviewed and interpreted this ECG as follows: Indication: altered mental status Rate (beats per minute): 98 Rhythm: sinus rhythm Findings: + other (poor quality baseline for interpretation), + nonspecific-ST abn and + PVC; no ST depression, no ST elevation and no acute ischemic change Blood Pressure Blood Pressure Findings: Normal blood pressure MDM Narrative This pt was evaluated and appeared to be in no distress, but he is somnolent. IV access was obtained and lab work was drawn. IVF were initiated. Pt is found to be slightly febrile and HTN. Lactate is 4.37 and WBC is mildly elevated. Pt was medicated with IV zosyn. CXR is concerning for PNA, CT was performed to confirm. THhis study reveals bilateral pulm apical infiltrates and loculated pl effusion. Pt and family were informed of the findings. Pt will be evaluated by Dr Levy for further management. He is aware and agrees. Impression & Plan Pneumonia, Altered mental status, Weakness, Elevated LDH, Dependence on supple mental oxygen, COPD (chronic obstructive pulmonary disease) Discharge Plan Visit Data *Final* Discharge Date/Time: 03/01/19 11:41 Chief Complaint: Confusion ED Provider: Jo Ann Gil ED Midlevel Provider: Getachew Rosales Discharge Problem: Pneumonia, Altered mental status, Weakness, Elevated LDH, Dependence on supplemental oxygen, COPD (chronic obstructive pulmonary disease) Patient Disposition: Admitted As Inpatient Discharge Instructions Interventions: ED Discharge Assessment Last Done: 03/01/19 11:41 Discharge Problem: Pneumonia Qualifiers: Pneumonia type: due to unspecified organism Laterality: bilateral Lung location: upper lobe of lung Qualified Code(s): J18.1 - Lobar pneumonia, unspecified organism Altered mental status Qualifiers: Altered mental status type: unspecified Qualified Code(s): R41.82 - Altered mental status, unspecified COPD (chronic obstructive pulmonary disease) Qualifiers: COPD type: unspecified COPD Qualified Code(s): J44.9 - Chronic obstructive pulmonary disease, unspecified The scribe's documentation has been prepared under my direction and personally reviewed by me in its entirety. I confirm that the note above accurately reflects all work, treatment, procedures, and medical decision making performed by me.
[2019-03-01] MEDS: DIVALPROEX EXTENDED RELEASE 250 MG TABCR PO SCH (21:13)
[2019-03-01] MEDS: ATORVASTATIN 40 MG TAB PO SCH (21:14)
[2019-03-02] MEDS: SODIUM CHLORIDE 0.9% 1000ML 1,000 ML IV SCH (00:48)
[2019-03-02] MEDS: HEPARIN SOD 5,000 UNIT/0.5 ML VIAL SQ SCH ×3 (05:44→21:35)
[2019-03-02] MEDS: PIPERACILLIN/TAZOBACTAM 3.375 GM in DEXTROSE 5% 100 ML IV SCH ×3 (05:44→21:34)
[2019-03-02 06:01] LABS: Basophils # (auto) 0.02 K/uL (0-0.2); Basophils % (auto) 0.3 %; Eosinophils # (auto) 0.19 K/uL (0-0.5); Eosinophils % (auto) 2.6 %; Hematocrit (blood only) 37.4 % (42-52); Hemoglobin 12.1 g/dL (14.0-18.0); Immature Granulocytes # (auto) 0.02 K/uL (0.00-0.02); Immature Granulocytes % (auto) 0.3 %; Lymphocytes # (auto) 1.36 K/uL (1.2-3.4); Lymphocytes % (auto) 18.8 %; Mean Corpuscular Hgb Conc 32.4 g/dL (32-36); Mean Corpuscular Volume 98.2 fL (80-100); Mean Platelet Volume 9.8 fL (7.4-10.4); Monocytes # (auto) 1.03 K/uL (0.11-0.59); Monocytes % (auto) 14.3 %; Neutrophils % (auto) 63.7 %; Platelet Count 183 K/uL (130-400); RDW Coefficient of Variation 13.5 % (11.5-14.5); RDW Standard Deviation 48.1 fL (36.4-46.3); Red Blood Count 3.81 M/uL (4.7-6.1); White Blood Count 7.22 K/uL (4.8-10.8)
[2019-03-02 06:40] LABS: BUN Creatinine Ratio 20.8 (10-20); Calcium 8.5 mg/dl (8.5-10.1); Creatinine Clr Calc Pharmacy 65.5 ml/min; Est GFR (African American) 94.2; Est GFR (Non-African American) 81.3; Potassium 3.6 mmol/L (3.5-5.1)
[2019-03-02] MEDS: ESCITALOPRAM OXALATE 10 MG TAB PO SCH (07:48)
[2019-03-02] MEDS: DIVALPROEX EXTENDED RELEASE 500 MG TAB PO SCH (07:48)
[2019-03-02] MEDS: dilTIAZem HCL 240 MG CAPCR PO SCH (07:48)
[2019-03-02] MEDS: PHENYTOIN SODIUM ER 100 MG CAP PO SCH ×3 (07:48→21:03)
[2019-03-02] MEDS: ASPIRIN 81 MG ECTAB PO SCH (07:48)
[2019-03-02] MEDS: LORATADINE 10 MG TAB PO SCH (07:49)
[2019-03-02] MEDS: INSULIN ASPART 100 UNITS/ML 3 ML PEN SC SCH ×4 (07:50→21:35)
--- NOTE | 2019-03-02 08:43 | Hospitalist Progress Note ---
Date of Service March 02, 2019 Assessment & Plan (1) Aspiration pneumonia: aspirated in the morning on 03/[address] chest with bilateral upper lobe pneumonitis continue Zosyn IV vitals stable, on 3L NC which he wears chronically no fever, WBC normal, no cough, no respiratory distress stop IV fluids, no evidence of sepsis transfer to medical floor today continue Zosyn for now, anticipate only needing 5 days total, can convert to Augmentin on discharge (2) Altered mental status: present on admission, resolved today due to pneumonia this would represent metabolic encephalopathy (3) Weakness: will consult PT/OT today (4) COPD (chronic obstructive pulmonary disease): no wheezing, continue nebulizer treatments (5) HTN (hypertension): resume Losartan today as BP elevated (6) Hyperlipidemia: continue statin (7) Chronic respiratory failure with hypoxia: stable on 3L NC which he wears continuously (8) Seizure disorder: continue on Phenytoin and Depakote no seizure activity (9) Chronic UTI: typically on Nitrofurantoin will hold since he will be on Zosyn (10) DM type 2 (diabetes mellitus, type 2): DM diet Novolog SS monitor for hypoglycemia (11) Pleural effusion: chronic, stable Plan: transfer to medical, PT/OT anticipate home in 2 days, he has excellent support at home complete 5-7 days of antibiotics depending on clinical course Subjective patient doing much better this morning, he is alert, oriented, conversive breathing well, no cough, no fever, no chest pain, no dyspnea ate his breakfast reviewed labs, WBC normal, Cr is 0.79, electrolytes stable Review of Systems Review of Systems: All systems reviewed & are unremarkable except as noted in HPI & below Physical Exam Constitutional: WD/WN, vitals as above + thin; not in distress Eyes: PERRL, conjunctivae normal, anicteric sclerae ENMT: external ear and nose normal, oropharynx normal Neck: trachea midline, no thyromegaly Respiratory: normal respiratory effort, lungs clear to auscultation Auscultation: + diminished lung sounds; no rhonchi Cardiovascular: RRR, no murmur, no edema Gastrointestinal (Abdomen): normal bowel sounds, soft, nontender, no hepatosplenomegaly Musculoskeletal: no cyanosis or clubbing, extremities motor strength 5/5 Skin: no rashes, warm and dry Neurologic: PERRL, EOMI, accommodation nl, no face palsy, no dysarthria Psychiatric: Orientation: oriented to person; + not oriented to place and + not oriented to time Lymphatic: no cervical or axillary lymphadenopathy Results & Data Vital Signs (Past 12 Hours) Vital Signs Temp Pulse Resp BP BP Pulse Ox 03/02/19 07:20 36.4 C L 69 17 171/88 H 98 03/02/19 03:14 36.6 C 69 18 142/76 H 98 03/01/19 23:02 36.7 C 65 15 132/77 98 Laboratory Results Laboratory Results - last 24 hr 03/01/19 03/01/19 03/01/19 07:20 07:49 07:49 WBC RBC Hgb Hct MCV MCH MCHC RDW Std Deviation RDW Coeff of Rae Plt Count MPV Immature Gran % (Auto) Neut % (Auto) Lymph % (Auto) [place] % (Auto) Eos % (Auto) Baso % (Auto) Immature Gran # (Auto) Neut # (Auto) Lymph # (Auto) [place] # (Auto) Eos # (Auto) Baso # (Auto) PT 11.3 INR 1.1 Sodium Potassium Chloride Carbon Dioxide Anion Gap BUN Creatinine Est Cr Clr Drug Dosing Est GFR ( Amer) Est GFR (Non-Af Amer) BUN/Creatinine Ratio Glucose POC Glucose Lactate Calcium Total Bilirubin 0.3 Alkaline Phosphatase 73 Total Protein 7.8 Globulin 4.5 H Albumin/Globulin Ratio 0.7 L Urine Color Yellow Urine Appearance Clear Urine pH >= 9.0 H Ur Specific [place] 1.014 Urine Protein Negative Urine Glucose (UA) Trace H Urine Ketones Trace H Urine Blood Negative Urine Nitrite Negative Urine Bilirubin Negative Urine Urobilinogen Negative Ur Leukocyte Esterase Negative Urine WBC (Auto) 1-5 Urine RBC (Auto) 5-10 H U Hyaline Cast (Auto) 0 U Epithel Cells (Auto) 5-10 H Urine Bacteria (Auto) Negative 03/01/19 03/01/19 03/01/19 13:02 13:28 16:14 WBC RBC Hgb Hct MCV MCH MCHC RDW Std Deviation RDW Coeff of Rae Plt Count MPV Immature Gran % (Auto) Neut % (Auto) Lymph % (Auto) [place] % (Auto) Eos % (Auto) Baso % (Auto) Immature Gran # (Auto) Neut # (Auto) Lymph # (Auto) [place] # (Auto) Eos # (Auto) Baso # (Auto) PT INR Sodium Potassium Chloride Carbon Dioxide Anion Gap BUN Creatinine Est Cr Clr Drug Dosing Est GFR ( Amer) Est GFR (Non-Af Amer) BUN/Creatinine Ratio Glucose POC Glucose 109 H 138 H Lactate 3.1 H* Calcium Total Bilirubin Alkaline Phosphatase Total Protein Globulin Albumin/Globulin Ratio Urine Color Urine Appearance Urine pH Ur Specific [place] Urine Protein Urine Glucose (UA) Urine Ketones Urine Blood Urine Nitrite Urine Bilirubin Urine Urobilinogen Ur Leukocyte Esterase Urine WBC (Auto) Urine RBC (Auto) U Hyaline Cast (Auto) U Epithel Cells (Auto) Urine Bacteria (Auto) 03/01/19 03/02/19 03/02/19 20:44 05:49 05:49 WBC 7.22 RBC 3.81 L Hgb 12.1 L Hct 37.4 L MCV 98.2 MCH 31.8 MCHC 32.4 RDW Std Deviation 48.1 H RDW Coeff of Rae 13.5 Plt Count 183 MPV 9.8 Immature Gran % (Auto) 0.3 Neut % (Auto) 63.7 Lymph % (Auto) 18.8 [place] % (Auto) 14.3 Eos % (Auto) 2.6 Baso % (Auto) 0.3 Immature Gran # (Auto) 0.02 Neut # (Auto) 4.60 Lymph # (Auto) 1.36 [place] # (Auto) 1.03 H Eos # (Auto) 0.19 Baso # (Auto) 0.02 PT INR Sodium 141 Potassium 3.6 Chloride 102 Carbon Dioxide 35 H Anion Gap 4.0 BUN 17 Creatinine 0.79 Est Cr Clr Drug Dosing 65.5 Est GFR ( Amer) 94.2 Est GFR (Non-Af Amer) 81.3 BUN/Creatinine Ratio 20.8 H Glucose 144 H POC Glucose 107 H Lactate Calcium 8.5 Total Bilirubin Alkaline Phosphatase Total Protein Globulin Albumin/Globulin Ratio Urine Color Urine Appearance Urine pH Ur Specific [place] Urine Protein Urine Glucose (UA) Urine Ketones Urine Blood Urine Nitrite Urine Bilirubin Urine Urobilinogen Ur Leukocyte Esterase Urine WBC (Auto) Urine RBC (Auto) U Hyaline Cast (Auto) U Epithel Cells (Auto) Urine Bacteria (Auto) 03/02/19 07:17 WBC RBC Hgb Hct MCV MCH MCHC RDW Std Deviation RDW Coeff of Rae Plt Count MPV Immature Gran % (Auto) Neut % (Auto) Lymph % (Auto) [place] % (Auto) Eos % (Auto) Baso % (Auto) Immature Gran # (Auto) Neut # (Auto) Lymph # (Auto) [place] # (Auto) Eos # (Auto) Baso # (Auto) PT INR Sodium Potassium Chloride Carbon Dioxide Anion Gap BUN Creatinine Est Cr Clr Drug Dosing Est GFR ( Amer) Est GFR (Non-Af Amer) BUN/Creatinine Ratio Glucose POC Glucose 141 H Lactate Calcium Total Bilirubin Alkaline Phosphatase Total Protein Globulin Albumin/Globulin Ratio Urine Color Urine Appearance Urine pH Ur Specific [place] Urine Protein Urine Glucose (UA) Urine Ketones Urine Blood Urine Nitrite Urine Bilirubin Urine Urobilinogen Ur Leukocyte Esterase Urine WBC (Auto) Urine RBC (Auto) U Hyaline Cast (Auto) U Epithel Cells (Auto) Urine Bacteria (Auto) Medications Administered Current Inpatient Medications Acetaminophen (Tylenol) 650 mg PO Q4H PRN PRN Reason: Pain or Fever Stop: 03/31/19 12:44 Aspirin (Ecotrin Ectab) 81 mg PO [facility] Stop: 04/01/19 08:59 Last Admin: 03/02/19 07:48 Dose: 81 mg Documented by: Atorvastatin Calcium (Lipitor) 40 mg PO [facility] Stop: 03/31/19 20:59 Last Admin: 03/01/19 21:14 Dose: 40 mg Documented by: Diclofenac Sodium (Voltaren 1% Top) 1 appln EXT QID PRN PRN Reason: shoulder pain Stop: 03/31/19 12:44 Diltiazem HCl (Cardizem Cd) 240 mg PO [facility] Stop: 04/01/19 08:59 Last Admin: 03/02/19 07:48 Dose: 240 mg Documented by: Divalproex Sodium (Depakote Extended Release) [facility] Stop: 04/01/19 08:59 Last Admin: 03/02/19 07:48 Dose: 500 mg Documented by: Divalproex Sodium (Depakote Extended Release) 750 mg PO [facility] Stop: 03/31/19 20:59 Last Admin: 03/01/19 21:13 Dose: 750 mg Documented by: Escitalopram Oxalate (Lexapro Tab) 5 mg PO DAILY [facility] Stop: 04/01/19 08:59 Last Admin: 03/02/19 07:48 Dose: 5 mg Documented by: Heparin Sodium (Porcine) (Heparin Sodium (Porcine)) 5,000 units SQ Q8 [facility] Stop: 03/31/19 13:59 Last Admin: 03/02/19 05:44 Dose: 5,000 units Documented by: Piperacillin Sod/Tazobactam (Sod 3.375 gm/ Dextrose) 115 mls @ 28.75 mls/hr IV Q8H [facility]; Protocol Stop: 03/08/19 13:59 Last Admin: 03/02/19 05:44 Dose: 28.8 mls/hr Documented by: Insulin Aspart (Novolog Flexpen) 0 units SC ACHS [facility] Stop: 03/31/19 12:44 Last Admin: 03/02/19 07:50 Dose: 1 units Documented by: Loratadine (Claritin) 10 mg PO QAM [facility] Stop: 04/01/19 08:59 Last Admin: 03/02/19 07:49 Dose: 10 mg Documented by: Miscellaneous Information (Consult) 1 ea N/A UD PRN PRN Reason: Consult Stop: 03/31/19 12:44 Ondansetron HCl (Zofran) 4 mg IV Q6H PRN PRN Reason: Nausea Stop: 03/31/19 12:44 Phenytoin Sodium (Dilantin Er) 100 mg PO TID@0700,1400,2130 [facility] Stop: 03/31/19 13:59 Last Admin: 03/02/19 07:48 Dose: 100 mg Documented by: PG Care Time/CCT Total # of Minutes Spent Total Time Spent with Patient: Total time spent is greater than 50% in coordination of care (as documented) at patient's floor/unit and/or counseling patient: (1) Altered mental status Altered mental status type: unspecified Qualified Code(s): R41.82 - Altered mental status, unspecified (2) COPD (chronic obstructive pulmonary disease) COPD type: unspecified COPD Qualified Code(s): J44.9 - Chronic obstructive pulmonary disease, unspecified (3) DM type 2 (diabetes mellitus, type 2) 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
[2019-03-02] MEDS: ATORVASTATIN 40 MG TAB PO SCH (21:03)
[2019-03-02] MEDS: DIVALPROEX EXTENDED RELEASE 250 MG TABCR PO SCH (21:03)
[2019-03-03] MEDS: PIPERACILLIN/TAZOBACTAM 3.375 GM in DEXTROSE 5% 100 ML IV SCH ×3 (05:47→22:29)
[2019-03-03] MEDS: HEPARIN SOD 5,000 UNIT/0.5 ML VIAL SQ SCH ×3 (05:47→22:32)
[2019-03-03] MEDS: PHENYTOIN SODIUM ER 100 MG CAP PO SCH ×3 (05:48→22:28)
[2019-03-03 05:52] LABS: Basophils # (auto) 0.01 K/uL (0-0.2); Basophils % (auto) 0.1 %; Eosinophils # (auto) 0.31 K/uL (0-0.5); Eosinophils % (auto) 3.8 %; Hematocrit (blood only) 34.7 % (42-52); Hemoglobin 11.4 g/dL (14.0-18.0); Immature Granulocytes # (auto) 0.03 K/uL (0.00-0.02); Immature Granulocytes % (auto) 0.4 %; Lymphocytes # (auto) 1.15 K/uL (1.2-3.4); Mean Corpuscular Hgb Conc 32.9 g/dL (32-36); Mean Corpuscular Volume 95.9 fL (80-100); Mean Platelet Volume 10.1 fL (7.4-10.4); Monocytes # (auto) 1.28 K/uL (0.11-0.59); Monocytes % (auto) 15.6 %; Neutrophils # (auto) 5.42 K/uL (1.4-6.5); Neutrophils % (auto) 66.1 %; Platelet Count 192 K/uL (130-400); RDW Coefficient of Variation 13.4 % (11.5-14.5); RDW Standard Deviation 47.1 fL (36.4-46.3); Red Blood Count 3.62 M/uL (4.7-6.1)
[2019-03-03 06:22] LABS: Calcium 8.6 mg/dl (8.5-10.1); Creatinine Clr Calc Pharmacy 56.3 ml/min; Potassium 3.4 mmol/L (3.5-5.1)
[2019-03-03] MEDS: DIVALPROEX EXTENDED RELEASE 500 MG TAB PO SCH (08:56)
[2019-03-03] MEDS: LORATADINE 10 MG TAB PO SCH (08:56)
[2019-03-03] MEDS: dilTIAZem HCL 240 MG CAPCR PO SCH (08:56)
[2019-03-03] MEDS: ESCITALOPRAM OXALATE 10 MG TAB PO SCH (08:57)
[2019-03-03] MEDS: ASPIRIN 81 MG ECTAB PO SCH (08:57)
[2019-03-03] MEDS: INSULIN ASPART 100 UNITS/ML 3 ML PEN SC SCH ×4 (09:25→22:33)
[2019-03-03] MEDS: ACETAMINOPHEN 325 MG TAB PO PRN ×3 (09:48→22:42)
[2019-03-03] MEDS ORDERED: POTASSIUM CHLORIDE 20 MEQ TABCR PO ONE (10:15)
--- NOTE | 2019-03-03 17:29 | Hospitalist Progress Note ---
Date of Service March 03, 2019 Assessment & Plan (1) Aspiration pneumonia: aspirated in the morning on 03/[address] chest with bilateral upper lobe pneumonitis Improved overall vitals stable, on 3L NC which he wears chronically no fever, WBC normal, no cough, no respiratory distress have since stopped IV fluids, no evidence of sepsis -continue Zosyn IV--> anticipate only needing 5 days total, can convert to Augmentin on discharge-likely tomorrow (2) Altered mental status: present on admission, resolved due to pneumonia this would represent metabolic encephalopathy (3) Weakness: PT/OT evaluations appreciated--> recommending rehab (4) COPD (chronic obstructive pulmonary disease): no wheezing, continue nebulizer treatments Has chronically loculated pleural effusion on the right (5) HTN (hypertension): Stable to mildly elevated -continue Losartan (6) Hyperlipidemia: continue statin (7) Chronic respiratory failure with hypoxia: stable on 3L NC which he wears continuously (8) Seizure disorder: continue on Phenytoin and Depakote no seizure activity (9) Chronic UTI: typically on Nitrofurantoin will hold since he will be on Zosyn (10) DM type 2 (diabetes mellitus, type 2): HgbA1C 7.4% in 09/2018 which is well controlled for age and comorbidities -continue DM diet -continue Novolog SS (11) Pleural effusion: chronic, stable Not a candidate for decortication as per Thoracic eval in the past (12) Hip pain, acute: Right hip pain that family noted since admission, question if occurred during transport out of the house to the ambulance. Pain with log roll but was able to ambulate with PT yesterday -check hip xray (13) Hypokalemia: mild, K+ 3.4 -replace with po KCl today (14) DVT prophylaxis: SQ Heparin Dispo- will likely be stable for dc to [facility] tomorrow Subjective Pt c/o pain in the right hip with "twisting" his RLE. Denies CP or SOB, no other concerns. Review of Systems Review of Systems: All systems reviewed & are unremarkable except as noted in HPI & below Physical Exam Constitutional: WD/WN, vitals as above Eyes: PERRL, conjunctivae normal, anicteric sclerae Neck: trachea midline, no thyromegaly Respiratory: normal respiratory effort; no labored breathing Auscultation: + diminished lung sounds (at right base); no crackles, no rhonchi and no wheezes Cardiovascular: RRR, no murmur, no edema Gastrointestinal (Abdomen): normal bowel sounds, soft, nontender, no hepatosplenomegaly Musculoskeletal: Extremities: extremities normal to inspection and + limited ROM of extremities (able to flex at rt hip and knee with some pain, +pain with log roll on Rt); no cyanosis, no clubbing and leg not foreshortened Skin: no rashes, warm and dry Neurologic: moves all extremities and awake; no focal motor deficits Psychiatric: Orientation: alert, oriented to person and cooperative Results & Data Vital Signs (Past 12 Hours) Vital Signs Temp Pulse Pulse Resp BP Pulse Ox 03/03/19 15:32 36.7 C 76 17 152/84 H 99 03/03/19 07:45 36.5 C 65 19 162/88 H 97 Laboratory Results 03/03/19 03/03/19 03/03/19 Range/Units 17:07 12:03 08:23 WBC (4.8-10.8) K/uL RBC (4.7-6.1) M/uL Hgb (14.0-18.0) g/dL Hct (42-52) % MCV (80-100) fL MCH (25-34) pg MCHC (32-36) g/dL RDW Std Deviation (36.4-46.3) fL RDW Coeff of Rae (11.5-14.5) % Plt Count (130-400) K/uL MPV (7.4-10.4) fL Immature Gran % (Auto) % Neut % (Auto) % Lymph % (Auto) % [place] % (Auto) % Eos % (Auto) % Baso % (Auto) % Immature Gran # (Auto) (0.00-0.02) K/uL Neut # (Auto) (1.4-6.5) K/uL Lymph # (Auto) (1.2-3.4) K/uL [place] # (Auto) (0.11-0.59) K/uL Eos # (Auto) (0-0.5) K/uL Baso # (Auto) (0-0.2) K/uL Sodium (136-145) mmol/L Potassium (3.5-5.1) mmol/L Chloride (98-107) mmol/L Carbon Dioxide (21-32) mmol/L Anion Gap (3-11) BUN (7-18) mg/dl Creatinine (0.6-1.4) mg/dl Est Cr Clr Drug Dosing ml/min Est GFR ( Amer) Est GFR (Non-Af Amer) BUN/Creatinine Ratio (10-20) Glucose (70-99) mg/dl POC Glucose 106 H 178 H 138 H (70-99) Calcium (8.5-10.1) mg/dl 03/03/19 03/03/19 03/02/19 Range/Units 05:11 05:11 20:56 WBC 8.20 (4.8-10.8) K/uL RBC 3.62 L (4.7-6.1) M/uL Hgb 11.4 L (14.0-18.0) g/dL Hct 34.7 L (42-52) % MCV 95.9 (80-100) fL MCH 31.5 (25-34) pg MCHC 32.9 (32-36) g/dL RDW Std Deviation 47.1 H (36.4-46.3) fL RDW Coeff of Rae 13.4 (11.5-14.5) % Plt Count 192 (130-400) K/uL MPV 10.1 (7.4-10.4) fL Immature Gran % (Auto) 0.4 % Neut % (Auto) 66.1 % Lymph % (Auto) 14.0 % [place] % (Auto) 15.6 % Eos % (Auto) 3.8 % Baso % (Auto) 0.1 % Immature Gran # (Auto) 0.03 H (0.00-0.02) K/uL Neut # (Auto) 5.42 (1.4-6.5) K/uL Lymph # (Auto) 1.15 L (1.2-3.4) K/uL [place] # (Auto) 1.28 H (0.11-0.59) K/uL Eos # (Auto) 0.31 (0-0.5) K/uL Baso # (Auto) 0.01 (0-0.2) K/uL Sodium 141 (136-145) mmol/L Potassium 3.4 L (3.5-5.1) mmol/L Chloride 104 (98-107) mmol/L Carbon Dioxide 35 H (21-32) mmol/L Anion Gap 3.0 (3-11) BUN 14 (7-18) mg/dl Creatinine 0.92 (0.6-1.4) mg/dl Est Cr Clr Drug Dosing 56.3 ml/min Est GFR ( Amer) 87.0 Est GFR (Non-Af Amer) 75.0 BUN/Creatinine Ratio 15.0 (10-20) Glucose 138 H (70-99) mg/dl POC Glucose 124 H (70-99) Calcium 8.6 (8.5-10.1) mg/dl PG Care Time/CCT Total # of Minutes Spent Total Time Spent with Patient: Total time spent is greater than 50% in coordination of care (as documented) at patient's floor/unit and/or counseling patient: (1) Altered mental status Altered mental status type: unspecified Qualified Code(s): R41.82 - Altered mental status, unspecified (2) COPD (chronic obstructive pulmonary disease) COPD type: unspecified COPD Qualified Code(s): J44.9 - Chronic obstructive pulmonary disease, unspecified (3) DM type 2 (diabetes mellitus, type 2) Diabetes mellitus long-term insulin use: without long-term use Diabetes mellitus complication status: without complication Qualified Code(s): E11.9 - Type 2 diabetes mellitus without complications
--- NOTE | 2019-03-03 20:00 | XRay Report ---
XR hip RT min 2V CLINICAL HISTORY: right hip pain COMPARISON: None FINDINGS: Extensive vascular calcification is noted. No acute fracture is identified. Joint space is preserved. There is minimal osteophytosis of the right hip. IMPRESSION: 1. No acute fracture. 2. Preserved right hip joint space with minimal osteophytosis. Electronically signed by: Price Mei M.D. 03/03/2019 7:59 PM
[2019-03-03] MEDS: DIVALPROEX EXTENDED RELEASE 250 MG TABCR PO SCH (22:29)
[2019-03-03] MEDS: ATORVASTATIN 40 MG TAB PO SCH (23:02)
[2019-03-04] MEDS: HEPARIN SOD 5,000 UNIT/0.5 ML VIAL SQ SCH ×2 (06:01→12:58)
[2019-03-04] MEDS: PHENYTOIN SODIUM ER 100 MG CAP PO SCH ×2 (06:01→12:58)
[2019-03-04] MEDS: PIPERACILLIN/TAZOBACTAM 3.375 GM in DEXTROSE 5% 100 ML IV SCH (06:01)
[2019-03-04 07:10] LABS: Creatinine Clr Calc Pharmacy 57.5 ml/min; Est GFR (African American) 89.3; Est GFR (Non-African American) 77.1
[2019-03-04] MEDS: ACETAMINOPHEN 325 MG TAB PO PRN (08:16)
[2019-03-04] MEDS: DIVALPROEX EXTENDED RELEASE 500 MG TAB PO SCH (08:16)
[2019-03-04] MEDS: dilTIAZem HCL 240 MG CAPCR PO SCH (08:16)
[2019-03-04] MEDS: INSULIN ASPART 100 UNITS/ML 3 ML PEN SC SCH ×2 (08:55→12:59)
[2019-03-04] MEDS: ESCITALOPRAM OXALATE 10 MG TAB PO SCH (08:55)
[2019-03-04] MEDS: LORATADINE 10 MG TAB PO SCH (08:55)
[2019-03-04] MEDS: ASPIRIN 81 MG ECTAB PO SCH (08:55)
--- NOTE | 2019-03-04 13:02 | Discharge Summary ---
Date of Service March 04, 2019 Admission HPI Per Admitting Provider 88 yo male with history of aspiration pneumonia, chronic UTI, seizure disorder who lives at home with , comes to the ED this morning after vomiting early in the morning. and daughter report that he was doing really well yesterday. He was sleeping in his recliner chair so he can be more upright, this is normal for him. His said that he vomited around 5am, she found him with vomit down his right side and arm with head turned to that side. He was coughing a lot and had some difficulty breathing, he remained on his 3L of oxygen which is chronic. Has a history of aspiration pneumonia, swallow studies in the past have recommended soft diet, nectar thick liquids. Family called EMS and brought him to the ED. Again, this was an abrupt change in status for the patient, he was doing well the past few weeks. He will ambulate to the restroom but uses a urinal at home as well. He is eating well. Never had fever or chills. Had not been vomiting, this is isolated episode. Never had any chest pain. Has not had seizure activity in some time. Compliant with medications. In the ED his vitals were stable. CT chest showed bilateral upper lobe pneumonitis, chronic right sided pleural effusion. Given IV fluids and started on antibiotics. Principal Diagnosis Aspiration PNA-recurrent Discharge Exam Constitutional WD/WN, vitals as above Eyes PERRL, conjunctivae normal, anicteric sclerae Neck trachea midline, no thyromegaly Respiratory normal respiratory effort; no labored breathing Auscultation: + diminished lung sounds (at right base); no crackles, no rhonchi and no wheezes Cardiovascular RRR, no murmur, no edema Gastrointestinal (Abdomen) normal bowel sounds, soft, nontender, no hepatosplenomegaly Musculoskeletal Extremities: extremities normal to inspection (no TTP over right hip); no cyanosis, no clubbing and leg not foreshortened Skin no rashes, warm and dry Neurologic moves all extremities and awake; no focal motor deficits Psychiatric Orientation: alert, oriented to person and cooperative Discharge Data Allergies Allergy/AdvReac Type Severity Reaction Status Date / Time lorazepam [From Ativan] AdvReac Mild Agitated - Verified 03/01/19 12:48 paradoxical response Consultations None Ordered Studies 03/01/19 08:12 CT head/brain wo con Stat 03/01/19 09:07 CT chest wo con Stat Right hip xray CXR Hospital Course (1) Aspiration pneumonia: aspirated in the morning on 03/[address] chest with bilateral upper lobe pneumonitis This is a recurrent issue for him Improved overall vitals stable, on 3L NC which he wears chronically no fever, WBC normal, no cough, no respiratory distress have since stopped IV fluids, no evidence of sepsis -received Zosyn IV x 3 days and then converted to Augmentin on discharge-needs 4 more days for total of 7 (2) Altered mental status: present on admission, resolved due to pneumonia this would represent metabolic encephalopathy (3) Weakness: PT/OT evaluations appreciated--> recommending rehab (4) COPD (chronic obstructive pulmonary disease): no wheezing, continue nebulizer treatments Has chronically loculated pleural effusion on the right (5) HTN (hypertension): Stable to mildly elevated -can restart Losartan and HCTZ on discharge-held during stay (6) Hyperlipidemia: continue statin (7) Chronic respiratory failure with hypoxia: stable on 3L NC which he wears continuously (8) Seizure disorder: continue on Phenytoin and Depakote no seizure activity (9) Chronic UTI: typically on Nitrofurantoin Held this while on Zosyn -restart nitrofurantoin upon dc (10) DM type 2 (diabetes mellitus, type 2): HgbA1C 7.4% in 09/2018 which is well controlled for age and comorbidities -continue DM diet -received Novolog SS while here -can restart home meds on dc (11) Pleural effusion: chronic, stable Not a candidate for decortication as per Thoracic eval in the past (12) Hip pain, acute: Right hip pain that family noted since admission, question if occurred during transport out of the house to the ambulance. Pain with log roll but was able to ambulate with PT and now improved with Voltaren gel Hip xray negative for fracture (13) Hypokalemia: mild, K+ 3.4 -replaced with po KCl (14) DVT prophylaxis: SQ Heparin was provided Dispo- stable for dc to [facility] today Total Time Total Time Spent Total Time Spent (In Minutes): >30 min Total Time Includes: Examination of the Patient, Discharge Planning and Medication Reconciliation Discharge Plan Discharge Items Patient Disposition: Transfer Inpatient Rehab Fac Reason For Visit: ASPIRATION PNEUMONIA Discharge Diagnosis: Aspiration PNA Condition: Good Discharge Goals: Decrease discomfort, Diagnostic testing, Improve disease control, Learn about illness and Therapeutic intervention Activity: As commented below Lifting: Gradually increase as tolerated Bathing: No limitations Exercise/Sports: Gradually increase as tolerated Exercise Comment: with PT/OT Non-emergency contact: Primary Care Provider Call non-emergency contact if: you have any medication questions, your symptoms worsen, you have a fever and your temperature is above 100.5 Follow-up/Referrals: Werner Beck MD [Primary Care Provider] - Diet: Carb Consistent or DM2 and Heart Healthy Diet Texture: Dental soft (bite-sized) Liquid Consistency: [place] thick Diet Comment: Minced and moist Addtl Provider Instructions: Finish out the course of Augmentin for the aspiration PNA. He had right hip pain which was treated with Voltaren gel. Prescriptions: New amoxicillin-pot clavulanate 875-125 mg Tablet 1 tab PO BIDM Qty: 8 RF: 0 Continued escitalopram oxalate 5 mg tablet 5 mg PO DAILY Qty: 90 RF: 1 atorvastatin 40 mg tablet 40 mg PO HS Qty: 90 RF: 3 losartan 100 mg tablet 100 mg PO QAM Qty: 90 RF: 3 nitrofurantoin macrocrystal 50 mg capsule 50 mg PO QPM RF: 0 diltiazem HCl 240 mg capsule,extended release 24hr 240 mg PO QAM RF: 0 aspirin [Aspir-81] 81 mg Tablet,Delayed Release (Dr/Ec) 81 mg PO QAM RF: 0 hydrochlorothiazide 12.5 mg capsule 12.5 mg PO QAM RF: 0 loratadine 10 mg Tablet 10 mg PO QAM RF: 0 phenytoin sodium extended 100 mg capsule 100 mg PO TID RF: 0 metformin 500 mg tablet 1,000 mg PO BID RF: 0 acetaminophen [Acetaminophen Extra Strength] 500 mg Tablet 500 mg PO Q4 MDD 6 tablets daily PRN (Reason: Fever Or Pain) RF: 0 multivitamin with minerals Tablet 1 tab PO QAM RF: 0 divalproex 250 mg tablet extended release 24 hr 500 mg PO QAM RF: 0 diclofenac sodium [Voltaren] 1 % Gel 1 % EXT QID PRN (Reason: shoulder pain) Qty: 100 RF: 0 levalbuterol tartrate 45 mcg/actuation HFA aerosol inhaler 2 puffs INH Q6H PRN (Reason: shortness of breath) Qty: 15 RF: 0 divalproex 250 mg tablet extended release 24 hr 750 mg PO HS RF: 0 Stand-Alone Forms: Opternative Discharge Orders: Discharge Order (Routine); Ordered 03/04/19 Ordered By: Pilar Allison Skilled Items Patient informed of condition?: Yes DNR: No Discharge Level of Care: Acute rehab Communicable Disease: No Discharge Prognosis: Improving Admission Data Admit Date/Time: 03/01/19 10:59 Attending Provider: Pilar Allison Admit Provider: Lamont Levy Primary Care Provider: Werner Beck Other Providers: Lamont Levy Service: Medical Other Pending Studies at Discharge: Yes (Final Blood cultures from 03/01/19-no growth to date)
[2019-03-04] MEDS ORDERED: AMOXICILLIN/CLAVULANATE 875 MG TAB PO SCH (17:00)
== END 2019-03-04 14:22 | DRG 177 ==
LOC: ED 07:18 → SUATTDRO 10:59 → 2E 10:59 → 3N 03-02 08:32

== ENCOUNTER 2019-04-25 10:39 | Inpatient (IN) ==
[2019-04-25] MEDS ORDERED: SODIUM CHLORIDE 0.9% 1000ML 1,000 ML IV ONE ×2 (11:24→13:06)
[2019-04-25] MEDS ORDERED: CEFEPIME 2,000 MG/20 ML VIAL IV STA (11:27)
[2019-04-25 11:40] LABS: Basophils # (auto) 0.02 K/uL (0-0.2); Basophils % (auto) 0.2 %; Eosinophils # (auto) 0.26 K/uL (0-0.5); Eosinophils % (auto) 2.6 %; Hematocrit (blood only) 37.4 % (42-52); Hemoglobin 12.1 g/dL (14.0-18.0); Immature Granulocytes # (auto) 0.05 K/uL (0.00-0.02); Immature Granulocytes % (auto) 0.5 %; Lymphocytes # (auto) 1.42 K/uL (1.2-3.4); Lymphocytes % (auto) 14.5 %; Mean Corpuscular Hgb Conc 32.4 g/dL (32-36); Mean Corpuscular Volume 98.7 fL (80-100); Mean Platelet Volume 10.2 fL (7.4-10.4); Monocytes % (auto) 7.1 %; Neutrophils # (auto) 7.37 K/uL (1.4-6.5); Neutrophils % (auto) 75.1 %; Platelet Count 201 K/uL (130-400); RDW Coefficient of Variation 13.5 % (11.5-14.5); RDW Standard Deviation 48.2 fL (36.4-46.3); Red Blood Count 3.79 M/uL (4.7-6.1); White Blood Count 9.82 K/uL (4.8-10.8)
[2019-04-25 11:51] LABS: INR 1.1 (0.9-1.1); Partial Thromboplastin Ratio 0.9; Partial Thromboplastin Time 23.9 Seconds (21.0-31.0)
[2019-04-25 11:56] LABS: BUN Creatinine Ratio 21.5 (10-20); Calcium 8.5 mg/dl (8.5-10.1); Creatinine Clr Calc Pharmacy 54.4 ml/min; Est GFR (African American) 90.1; Est GFR (Non-African American) 77.8
--- NOTE | 2019-04-25 11:58 | XRay Report ---
XR chest 1V portable HISTORY: Sepsis COMPARISON: Chest 03/01/2019. FINDINGS: Emphysema. The heart remains enlarged. Loculated right pleural effusion remains unchanged. No pneumothorax. Diffuse interstitial thickening and cardiomegaly persist. No new focal lung consolid ations. IMPRESSION: 1. Stable loculated right pleural effusion. 2. Cardiomegaly with mild congestive change. Electronically signed by: Yonny Dasilva M.D. 04/25/2019 11:57 AM
[2019-04-25 11:59] LABS: Albumin Globulin Ratio 0.7 (0.9-2); Bilirubin,Total 0.3 mg/dl (0.2-1); Globulin 4.1 gm/dl (2.5-4.0); Total Protein 7.1 gm/dl (6.4-8.2)
[2019-04-25 12:18] LABS: Appearance Urine Clear (Clear); Bilirubin Urine Negative (Negative); Blood Urine Negative (Negative); Color Urine Yellow; Glucose Urine UA Negative (Negative); Ketones Urine Negative (Negative); Leukocyte Esterase Urine Negative (Negative); Nitrite Urine Negative (Negative); Protein Urine Negative (Negative); Specific Gravity Urine 1.016 (1.000-1.030); Urobilinogen Urine Negative (Negative)
[2019-04-25] MEDS ORDERED: VALPROATE SOD 1,000 MG in DEXTROSE 5% 50 ML IV STA (14:20)
[2019-04-25] MEDS ORDERED: HALOPERIDOL LACTATE 5 MG/ML 1 ML VIAL IV STA (14:25)
--- NOTE | 2019-04-25 14:50 | CT Scan Report ---
CT head/brain wo con CLINICAL HISTORY: 88 years-old Male presenting with seizures. TECHNIQUE: Multidetector CT imaging of the head was performed without the use of intravenous contrast . IV contrast: None. One or more dose lowering techniques were used consistent with the principles of ALARA (as low as reasonably achievable), including automatic exposure control, mA or kV adjustment t o individual patient size, and/or use of iterative reconstruction. COMPARISON: 03/01/2019. CT DOSE (mGy.cm): The estimated cumulative dose is 1228.53 mGy.cm. FINDINGS: Primer Charger topogram: Unremarkable. Proportional ventricular and sulcal prominence, likely age-related parenchymal volume loss. No hemorr rainer. Periventricular and subcortical white matter hypoattenuation, nonspecific but likely indicative of chronic small vessel ischemic change. 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 No acut e territorial infarct. No mass effect or midline shift. No extra-axial fluid collection. Paranasal si nuses and mastoid air cells clear. Calvarium intact. IMPRESSION: 1. 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 No ac kenaitze intracranial abnormality. Electronically signed by: Lenard oK M.D. 04/25/2019 2:49 PM
--- NOTE | 2019-04-25 15:18 | Emergency Department Note ---
Entered by Genia Ray acting as a scribe for Reinaldo Carty MD History of Present Illness General Chief complaint: Altered Mental Status Time Seen by Provider: 04/25/19 11:24 Source: family History of Present Illness Onset (ago): hour(s) 3 Location: head Pain Consistency: + other (episode) Quality: + other (altered mental status) Associated symptoms: + denies other symptoms (abnormal bowel movements), + cough and + other (seizure, wheezing); no nausea/vomiting (vomiting) The patient is an 88 year old male w/ PMHx Dementia, anxiety, anemia, CVA, seizure disorder, respiratory failure, pleural effusion, diabetes, UTI, dyslipidemia, and metabolic encephalopathy who presents to the ED w/ CC of an episode of altered mental status starting 3 hours ago. The patients states that this morning she was unsure if he had a seizure, but he was very out of it. She states that she called the ambulance, but by the time they got there, he had stopped and told them to go away. She reports that a half hour after they left, he had a seizure that she saw. She reports that he normally stares, doesnt respond, his feet kick, and his body twitches. She notes that she called the ambulance back, but he is confused now more than normal. She notes that she checked his urine and it was positive for a UTI with the at home strips so she believes that is why. The patients complains of the patient wheezing and having a cough. The patients denies the patient missing any of his seizure medications, recent medication changes, vomiting, and abnormal bowel movements. Home Medications Home Medications Medication Instructions Recorded Confirmed Type diltiazem HCl 240 mg PO QAM 06/21/18 04/25/19 History hydrochlorothiazide 12.5 mg PO QAM 06/21/18 04/25/19 History metformin 1,000 mg PO BID 08/19/18 04/25/19 History diclofenac sodium [Voltaren] 1 % EXT QID PRN #100 gm 10/02/18 04/25/19 Rx levalbuterol tartrate 2 puffs INH Q6H PRN #15 gm 10/13/18 04/25/19 Rx escitalopram 5 mg tablet 5 mg PO DAILY #90 tab 01/22/19 04/25/19 Rx atorvastatin 40 mg tablet 40 mg PO HS #90 tab 01/27/19 04/25/19 Rx losartan 100 mg tablet 100 mg PO QAM #90 tab 01/27/19 04/25/19 Rx nitrofurantoin macrocrystal 50 mg 50 mg PO QPM 03/11/19 04/25/19 History capsule aspirin 81 mg tablet,delayed 81 mg PO QAM 03/25/19 04/25/19 History release loratadine 10 mg tablet 10 mg PO QAM 03/25/19 04/25/19 History multivitamin with minerals tablet 1 tab PO QAM 03/25/19 04/25/19 History phenytoin sodium extended 100 mg 100 mg PO TID 03/25/19 04/25/19 History capsule potassium chloride ER 10 mEq 10 meq PO BID #180 cap 03/25/19 04/25/19 Rx capsule,extended release divalproex ER 250 mg 500 mg PO QAM tab 03/27/19 04/25/19 History tablet,extended release 24 hr albuterol sulfate [Ventolin HFA] 2 puff INHALATION QID PRN 04/25/19 04/25/19 History cyanocobalamin (vitamin B-12) 500 mcg PO DAILY 04/25/19 04/25/19 History [Vitamin B-12] divalproex 750 mg PO HS 04/25/19 04/25/19 History quetiapine 25 mg PO DAILY PRN 04/25/19 04/25/19 History Allergies Allergy/AdvReac Type Severity Reaction Status Date / Time lorazepam [From Ativan] AdvReac Mild Agitated - Verified 03/01/19 12:48 paradoxical response Past Med/Surg History Medical History Insomnia Mild dementia Anxiety Anemia Physical deconditioning History of CVA (cerebrovascular accident) Chronic respiratory failure with hypoxia (Chronic) Seizure disorder (Chronic) Pleural effusion (Chronic) Chronic UTI DM type 2 (diabetes mellitus, type 2) (Chronic) Chronic UTI (Chronic) DM type 2 (diabetes mellitus, type 2) (Chronic) Dyslipidemia (Chronic) Pleural effusion, right (Chronic) Seizures (Chronic) Stroke (Resolved) Acute hyperglycemia Complex partial seizure Elevated WBC count Elevated lactic acid level Metabolic encephalopathy Surgical History History of thoracentesis (Resolved) S/P thoracentesis Family History Other Hypertension Social History Preferred Language: [place] Islander Communication Ability: Effective 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 and A total of 10 systems reviewed and were otherwise negative Physical Exam Vital Signs Vital Signs - 24 hr 04/25/19 10:50 04/25/19 10:53 04/25/19 11:44 Temperature 36.8 C Temperature Source Oral Sepsis Recent Fever Within 48 Hours No Sepsis Action Taken by Nursing No Action Required Pulse Rate 89 89 Pulse Rate from SpO2 Sensor Pulse Rhythm Regular Regular Pulse Strength Normal Respiratory Rate 20 20 Respiratory Effort / Characteristics Non-Labored Spontaneous Respiratory Depth Normal Respiratory Pattern Regular Blood Pressure 140/83 Blood Pressure Mean 102 Blood Pressure Position Right Lateral Pulse Oximetry 92 92 Oxygen Delivery Method Nasal Cannula Nasal Cannula Nasal Cannula Oxygen Flow Rate 2.5 2.5 04/25/19 12:00 04/25/19 12:01 04/25/19 12:51 Temperature Temperature Source Sepsis Recent Fever Within 48 Hours Sepsis Action Taken by Nursing Pulse Rate 104 H 104 H 85 Pulse Rate from SpO2 Sensor 84 Pulse Rhythm Pulse Strength Respiratory Rate 24 24 18 Respiratory Effort / Characteristics Respiratory Depth Respiratory Pattern Blood Pressure 135/95 168/92 H Blood Pressure Mean 108 117 Blood Pressure Position Pulse Oximetry 98 98 Oxygen Delivery Method Nasal Cannula Room Air Oxygen Flow Rate 2.5 04/25/19 13:00 04/25/19 13:31 04/25/19 14:22 Temperature Temperature Source Sepsis Recent Fever Within 48 Hours Sepsis Action Taken by Nursing Pulse Rate 84 89 88 Pulse Rate from SpO2 Sensor 81 90 Pulse Rhythm Pulse Strength Respiratory Rate 17 21 24 Respiratory Effort / Characteristics Respiratory Depth Respiratory Pattern Blood Pressure 174/89 H 149/98 H 134/91 Blood Pressure Mean 117 115 105 Blood Pressure Position Pulse Oximetry 98 92 Oxygen Delivery Method Nasal Cannula Nasal Cannula Oxygen Flow Rate 2.5 2.5 04/25/19 14:30 04/25/19 15:00 Temperature Temperature Source Sepsis Recent Fever Within 48 Hours Sepsis Action Taken by Nursing Pulse Rate 85 87 Pulse Rate from SpO2 Sensor 85 87 Pulse Rhythm Pulse Strength Respiratory Rate 21 17 Respiratory Effort / Characteristics Respiratory Depth Respiratory Pattern Blood Pressure 151/81 H 161/82 H Blood Pressure Mean 104 108 Blood Pressure Position Pulse Oximetry 96 99 Oxygen Delivery Method Nasal Cannula Nasal Cannula Oxygen Flow Rate 2.5 2.5 GENERAL: Chronically ill appearing, well nourished, non-toxic. Follows basic commands. EYE EXAM: Normal conjunctiva. PERRL, no anisocoria and EOM's grossly intact w/o pain. OROPHARYNX: Moist mucous membranes. Grossly normal dentition. NECK: Supple, no nuchal rigidity, no adenopathy, non-tender. No signs of me ningismus. LUNGS: Blunted breath sounds at the right base. Normal chest wall mechanics. HEART: NSR, no MRG. ABDOMEN: Abdomen soft, non-tender, normo-active bowel sounds, no masses, no rebound or guarding. BACK: No CVA TTP. SKIN: No rashes and no bruising. UPPER EXTREMITIES: Upper extremities are grossly normal. LOWER EXTREMITIES: 1-2+ right lower extremity edema. No crepitus. Compartment soft. No calf pain. NEURO EXAM: A&O x3, cranial nerves II-XII grossly intact, normal speech, moves all 4 extremities on command w/o issue. Course 1115: Past medical records reviewed. The patient was evaluated in room C3. A complete history and physical exam was performed. 1126: I reviewed the EMR. The patient's last two urine cultures have been negative. The one he had in August grew out Serratia. It was sensitive to Cefepime. 1234: Nursing staff called and informed me that the patient was unable to lay flat for the CT. 1251: I reevaluated the patient and updated him and his family on his test results. I discussed the treatment plan with them. They verbally agree and understand. The patient's notes that the patient is a full code. 1316: I discussed the patient's case with Dr. Garcia- [facility] Hospitalist. She will evaluate the patient for further management. 1419: Dr. Garcia called me and informed me that the patient will need aponte sferred to have an EEG done. 1435: I reevaluated the patient and updated him and his on needing to transfer. The patient's states that she does not want the patient to be transferred. We will do a CT and speak to Neurology here. 1500: I discussed the patient's case [facility]. I updated her on the fact that the patient and his family does not want to be transferred. 1503: I discussed the patient's case with Dr. Sury Rodriguez. He recommends maxing out the Depakote at 500 mg Q8 hrs and Dilantin for the patient as long as the patient isn't in status epilepticus. He states that he doesn't necessarily need the EEG, but that was his main concern. 1507: I discussed the patient's case with Dr[facility]. She will evaluate the patient for further management. 1510: I reevaluated the patient and updated the patient and his on his test results. I discussed the treatment plan with them. They verbally agree and understand. Consultations Consultation #1: I discussed the patient's case with Dr. Veronica Boyd. She will evaluate the patient for further management. Time: 13:16 Consultation #2: Dr. Garcia called me and informed me that the patient will need transferred to have an EEG done. Time: 14:19 Consultation #3: I discussed the patient's case with [facility]. I updated her on the fact that the patient and his family does not want to be transferred. Time: 15:00 Additional Consultation(s): 1503: I discussed the patient's case with Dr. Sury Rodriguez. He recommends maxing out the Depakote at 500 mg Q8 hrs and Dilantin for the patient as long as the patient isn't status. He states that he doesn't n ecessarily need the EEG, but that was his main concern. 1507: I discussed the patient's case with Dr[facility]. She will evaluate the patient for further management. Administered Medications Discontinued Medications Haloperidol Lactate (Haldol) 2.5 mg IV NOW STA Stop: 04/25/19 14:26 Last Admin: 04/25/19 14:30 Dose: 2.5 mg Documented by: [id number] Sodium Chloride (Nss 1000ml) 1,000 mls @ 999 mls/hr IV .Q1H1M ONE Stop: 04/25/19 12:24 Last Infusion: 04/25/19 13:19 Dose: 0 mls/hr Documented by: [id number] Admin: 04/25/19 12:06 Dose: 999 mls/hr Documented by: [id number] Cefepime HCl (Maxipime) 2,000 mg in 20 mls @ 5 mls/min IV NOW STA; Protocol Stop: 04/25/19 11:30 Last Admin: 04/25/19 12:06 Dose: 5 mls/min Documented by: [id number] Sodium Chloride (Nss 1000ml) 1,000 mls @ 999 mls/hr IV .Q1H1M ONE Stop: 04/25/19 14:06 Last Infusion: 04/25/19 14:26 Dose: 0 mls/hr Documented by: [id number] Admin: 04/25/19 13:25 Dose: 999 mls/hr Documented by: [id number] Levetiracetam 1,000 mg/ (Dextrose) 110 mls @ 440 mls/hr IV NOW STA Stop: 04/25/19 13:20 Last Infusion: 04/25/19 13:54 Dose: 0 mls/hr Documented by: [id number] Admin: 04/25/19 13:23 Dose: 440 mls/hr Documented by: [id number] Valproic Acid 1,000 mg/ (Dextrose) 60 mls @ 55 mls/hr IV NOW STA Stop: 04/25/19 15:25 Last Infusion: 04/25/19 16:07 Dose: 0 mls/hr Documented by: [id number] Admin: 04/25/19 15:00 Dose: 55 mls/hr Documented by: [id number] Medical Decision Making Differential Diagnosis Differential diagnoses includes but is not limited to toxic, metabolic, infectious, traumatic, cardiac, neurologic, hematologic, psychiatric and inflammatory etiologies. Medical Records Attestation: I reviewed the patient's medical records. Home Medications Current Medication List: was personally reviewed by me Laboratory Data Attestation: I reviewed the patient's lab results. Result diagrams: 04/25/19 11:24 04/25/19 11:24 Lab Results 04/25/19 04/25/19 04/25/19 Range/Units 11:07 11:24 11:24 WBC 9.82 (4.8-10.8) K/uL RBC 3.79 L (4.7-6.1) M/uL Hgb 12.1 L (14.0-18.0) g/dL Hct 37.4 L (42-52) % MCV 98.7 (80-100) fL MCH 31.9 (25-34) pg MCHC 32.4 (32-36) g/dL RDW Std Deviation 48.2 H (36.4-46.3) fL RDW Coeff of Rae 13.5 (11.5-14.5) % Plt Count 201 (130-400) K/uL MPV 10.2 (7.4-10.4) fL Immature Gran % (Auto) 0.5 % Neut % (Auto) 75.1 % Lymph % (Auto) 14.5 % [place] % (Auto) 7.1 % Eos % (Auto) 2.6 % Baso % (Auto) 0.2 % Immature Gran # (Auto) 0.05 H (0.00-0.02) K/uL Neut # (Auto) 7.37 H (1.4-6.5) K/uL Lymph # (Auto) 1.42 (1.2-3.4) K/uL [place] # (Auto) 0.70 H (0.11-0.59) K/uL Eos # (Auto) 0.26 (0-0.5) K/uL Baso # (Auto) 0.02 (0-0.2) K/uL PT 11.0 (9.0-12.0) Seconds INR 1.1 (0.9-1.1) APTT 23.9 (21.0-31.0) Seconds PTT Ratio 0.9 Sodium (136-145) mmol/L Potassium (3.5-5.1) mmol/L Chloride (98-107) mmol/L Carbon Dioxide (21-32) mmol/L Anion Gap (3-11) BUN (7-18) mg/dl Creatinine (0.6-1.4) mg/dl Est Cr Clr Drug Dosing ml/min Est GFR ( Amer) Est GFR (Non-Af Amer) BUN/Creatinine Ratio (10-20) Glucose (70-99) mg/dl POC Glucose 165 H (70-99) POC Lactic Acid [place] (0.90-1.70) mmol/L Calcium (8.5-10.1) mg/dl Total Bilirubin (0.2-1) mg/dl AST (15-37) U/L ALT (12-78) U/L Alkaline Phosphatase (45-117) U/L Total Protein (6.4-8.2) gm/dl Albumin (3.4-5.0) gm/dl Globulin (2.5-4.0) gm/dl Albumin/Globulin Ratio (0.9-2) Procalcitonin (0-0.5) ng/ml Urine Color Urine Appearance (Clear) Urine pH (4.5-7.5) Ur Specific [place] (1.000-1.030) Urine Protein (Negative) Urine Glucose (UA) (Negative) Urine Ketones (Negative) Urine Blood (Negative) Urine Nitrite (Negative) Urine Bilirubin (Negative) Urine Urobilinogen (Negative) Ur Leukocyte Esterase (Negative) Phenytoin (10-20) mcg/ml 04/25/19 04/25/19 04/25/19 Range/Units 11:24 11:24 11:24 WBC (4.8-10.8) K/uL RBC (4.7-6.1) M/uL Hgb (14.0-18.0) g/dL Hct (42-52) % MCV (80-100) fL MCH (25-34) pg MCHC (32-36) g/dL RDW Std Deviation (36.4-46.3) fL RDW Coeff of Rae (11.5-14.5) % Plt Count (130-400) K/uL MPV (7.4-10.4) fL Immature Gran % (Auto) % Neut % (Auto) % Lymph % (Auto) % [place] % (Auto) % Eos % (Auto) % Baso % (Auto) % Immature Gran # (Auto) (0.00-0.02) K/uL Neut # (Auto) (1.4-6.5) K/uL Lymph # (Auto) (1.2-3.4) K/uL [place] # (Auto) (0.11-0.59) K/uL Eos # (Auto) (0-0.5) K/uL Baso # (Auto) (0-0.2) K/uL PT (9.0-12.0) Seconds INR (0.9-1.1) APTT (21.0-31.0) Seconds PTT Ratio Sodium 141 (136-145) mmol/L Potassium 4.0 (3.5-5.1) mmol/L Chloride 101 (98-107) mmol/L Carbon Dioxide 33 H (21-32) mmol/L Anion Gap 7.0 (3-11) BUN 19 H (7-18) mg/dl Creatinine 0.88 (0.6-1.4) mg/dl Est Cr Clr Drug Dosing 54.4 ml/min Est GFR ( Amer) 90.1 Est GFR (Non-Af Amer) 77.8 BUN/Creatinine Ratio 21.5 H (10-20) Glucose 157 H (70-99) mg/dl POC Glucose (70-99) POC Lactic Acid [place] (0.90-1.70) mmol/L Calcium 8.5 (8.5-10.1) mg/dl Total Bilirubin 0.3 (0.2-1) mg/dl AST 16 (15-37) U/L ALT 22 (12-78) U/L Alkaline Phosphatase 69 (45-117) U/L Total Protein 7.1 (6.4-8.2) gm/dl Albumin 3.0 L (3.4-5.0) gm/dl Globulin 4.1 H (2.5-4.0) gm/dl Albumin/Globulin Ratio 0.7 L (0.9-2) Procalcitonin < 0.05 (0-0.5) ng/ml Urine Color Urine Appearance (Clear) Urine pH (4.5-7.5) Ur Specific [place] (1.000-1.030) Urine Protein (Negative) Urine Glucose (UA) (Negative) Urine Ketones (Negative) Urine Blood (Negative) Urine Nitrite (Negative) Urine Bilirubin (Negative) Urine Urobilinogen (Negative) Ur Leukocyte Esterase (Negative) Phenytoin 6.2 L (10-20) mcg/ml 04/25/19 04/25/19 Range/Units 11:32 12:05 WBC (4.8-10.8) K/uL RBC (4.7-6.1) M/uL Hgb (14.0-18.0) g/dL Hct (42-52) % MCV (80-100) fL MCH (25-34) pg MCHC (32-36) g/dL RDW Std Deviation (36.4-46.3) fL RDW Coeff of Rae (11.5-14.5) % Plt Count (130-400) K/uL MPV (7.4-10.4) fL Immature Gran % (Auto) % Neut % (Auto) % Lymph % (Auto) % [place] % (Auto) % Eos % (Auto) % Baso % (Auto) % Immature Gran # (Auto) (0.00-0.02) K/uL Neut # (Auto) (1.4-6.5) K/uL Lymph # (Auto) (1.2-3.4) K/uL [place] # (Auto) (0.11-0.59) K/uL Eos # (Auto) (0-0.5) K/uL Baso # (Auto) (0-0.2) K/uL PT (9.0-12.0) Seconds INR (0.9-1.1) APTT (21.0-31.0) Seconds PTT Ratio Sodium (136-145) mmol/L Potassium (3.5-5.1) mmol/L Chloride (98-107) mmol/L Carbon Dioxide (21-32) mmol/L Anion Gap (3-11) BUN (7-18) mg/dl Creatinine (0.6-1.4) mg/dl Est Cr Clr Drug Dosing ml/min Est GFR ( Amer) Est GFR (Non-Af Amer) BUN/Creatinine Ratio (10-20) Glucose (70-99) mg/dl POC Glucose (70-99) POC Lactic Acid Davon 4.19 H (0.90-1.70) mmol/L Calcium (8.5-10.1) mg/dl Total Bilirubin (0.2-1) mg/dl AST (15-37) U/L ALT (12-78) U/L Alkaline Phosphatase (45-117) U/L Total Protein (6.4-8.2) gm/dl Albumin (3.4-5.0) gm/dl Globulin (2.5-4.0) gm/dl Albumin/Globulin Ratio (0.9-2) Procalcitonin (0-0.5) ng/ml Urine Color Yellow Urine Appearance Clear (Clear) Urine pH 8.0 H (4.5-7.5) Ur Specific [place] 1.016 (1.000-1.030) Urine Protein Negative (Negative) Urine Glucose (UA) Negative (Negative) Urine Ketones Negative (Negative) Urine Blood Negative (Negative) Urine Nitrite Negative (Negative) Urine Bilirubin Negative (Negative) Urine Urobilinogen Negative (Negative) Ur Leukocyte Esterase Negative (Negative) Phenytoin (10-20) mcg/ml Imaging Data Radiologist's Impression: Radiology results as stated below per my review and the radiologist's interpretation: XR chest 1V portable HISTORY: Sepsis COMPARISON: Chest 03/01/2019. FINDINGS: Emphysema. The heart remains enlarged. Loculated right pleural effusion remains unchanged. No pneumothorax. Diffuse interstitial thickening and cardiomegaly persist. No new focal lung consolidations. IMPRESSION: 1. Stable loculated right pleural effusion. 2. Cardiomegaly with mild congestive change. Electronically signed by: Yonny Dasilva M.D. 04/25/2019 11:[address] head/brain wo con CLINICAL HISTORY: 88 years-old Male presenting with seizures. TECHNIQUE: Multidetector CT imaging of the head was performed without the use of intravenous contrast. IV contrast: None. One or more dose lowering techniques were used consistent with the principles of ALARA (as low as reasonably achievable), including automatic exposure control, mA or kV adjustment to individual patient size, and/or use of iterative reconstruction. COMPARISON: 03/01/2019. CT DOSE (mGy.cm): The estimated cumulative dose is 1228.53 mGy.cm. FINDINGS: Grinder Lap topogram: Unremarkable. Proportional ventricular and sulcal prominence, likely age-related parenchymal volume loss. No hemorrhage. Periventricular and subcortical white matter hypoattenuation, nonspecific but likely indicative of chronic small vessel ischemic change. 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 No acute te rritorial infarct. No mass effect or midline shift. No extra-axial fluid collection. Paranasal sinuses and mastoid air cells clear. Calvarium intact. IMPRESSION: 1. 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 No acute intracranial abnormality. Electronically signed by: Lenard Ko M.D. 04/25/2019 2:49 PM ECG Data Attestation: I personally reviewed and interpreted this ECG as follows: Indication: altered mental status Rate (beats per minute): 84 Rhythm: sinus rhythm Findings: + other (normal QRS), + 1st degree AV block and + left axis deviation Blood Pressure Blood Pressure Findings: Elevated blood pressure Blood Pressure Disposition: further management by hospitalist MARIELOS Leiva The patient is an 88 year old male w/ PMHx Dementia, anxiety, anemia, CVA, seizure disorder, respiratory failure, pleural effusion, diabetes, UTI, dyslipidemia, and metabolic encephalopathy who presents to the ED w/ CC of an episode of altered mental status starting 3 hours ago. Patient was seen and evaluated the bedside. The patient was presenting due to concern for possible UTI related altered mental status and seizures. Patient does have a known history of seizures and is treated with medications for which she does see Dr. Gray with neurology. The patient is currently at his baseline does wear 2 and half liters of oxygen at all times for chronic right-sided pleural effusion. The patient does have some blunting of breath sounds in the right side. The patient was ordered cefepime given a prior history of Serratia positive bacteria from a urine culture back in August. This was sensitive to cefepime. Patient's lactate was 4. The patient was ordered additional IV fluids he did have blood cultures drawn and the patient was subsequent admitted to the medicine service. During the admissions process the patient did have recurrent seizure. The patient was ordered some Depakote. The patient was discussed with the on-call neurologist who is recommending possible transfer as there was concern that he may need a continuous EEG. I do not believe the patient is in status. The pat ient had no further seizure and the patient was able to have a limited conversation. The patient does move all extremities. The patient was given some Haldol in order to obtain the CT which he was he was unable to obtain initially as he would not lay flat. The patient CT only shows his old infarct. No evidence of acute bleed. I did rediscussed the case with the on-call neurologist who stated provided the patient was not in status and airway was not an issue he can stay here for further titration of his antiepileptics. I did rediscussed the patient's case with the on-call hospitalist who agreed to further evaluate treat the patient. Patient was admitted to the medicine service. Impression & Plan Altered mental status, Seizures, Elevated lactic acid level Discharge Plan Visit Data Chief Complaint: Altered Mental Status ED Provider: Reinaldo Carty Discharge Problem: Altered mental status, Seizures, Elevated lactic acid level Patient Disposition: Being Evaluated by Hospitalist Forms Stand Alone Forms: My [facility] Prescriptions Prescriptions: No Action escitalopram oxalate 5 mg tablet 5 mg PO DAILY Qty: 90 RF: 1 atorvastatin 40 mg tablet 40 mg PO HS Qty: 90 RF: 3 losartan 100 mg tablet 100 mg PO QAM Qty: 90 RF: 3 nitrofurantoin macrocrystal 50 mg capsule 50 mg PO QPM RF: 0 potassium chloride 10 mEq capsule, extended release 10 meq PO BID Qty: 180 RF: 3 divalproex 250 mg tablet extended release 24 hr 500 mg PO QAM RF: 0 diltiazem HCl 240 mg capsule,extended release 24hr 240 mg PO QAM RF: 0 hydrochlorothiazide 12.5 mg capsule 12.5 mg PO QAM RF: 0 aspirin [Aspir-81] 81 mg tablet,delayed release (DR/EC) 81 mg PO QAM RF: 0 loratadine 10 mg tablet 10 mg PO QAM RF: 0 metformin 500 mg tablet 1,000 mg PO BID RF: 0 multivitamin with minerals tablet 1 tab PO QAM RF: 0 phenytoin sodium extended 100 mg capsule 100 mg PO TID RF: 0 diclofenac sodium [Voltaren] 1 % Gel 1 % EXT QID PRN (Reason: shoulder pain) Qty: 100 RF: 0 levalbuterol tartrate 45 mcg/actuation HFA aerosol inhaler 2 puffs INH Q6H PRN (Reason: shortness of breath) Qty: 15 RF: 0 quetiapine 25 mg tablet 25 mg PO DAILY PRN (Reason: .) RF: 0 cyanocobalamin (vitamin B-12) [Vitamin B-12] 500 mcg Tablet 500 mcg PO DAILY RF: 0 albuterol sulfate [Ventolin HFA] 90 mcg/actuation Hfa Aerosol Inhaler 2 puff INHALATION QID PRN (Reason: Shortness Of Breath Or Wheezing) RF: 0 divalproex 250 mg tablet extended release 24 hr 750 mg PO HS RF: 0 Referrals Referrals: Werner Beck MD [Primary Care Provider] - Discharge Problem: Altered mental status Qualifiers: Altered mental status type: unspecified Qualified Code(s): R41.82 - Altered mental status, unspecified The scribe's documentation has been prepared under my direction and personally reviewed by me in its entirety. I confirm that the note above accurately reflects all work, treatment, procedures, and medical decision making performed by me.
--- NOTE | 2019-04-25 17:37 | History & Physical Report ---
Date of Service April 25, 2019 Assessment & Plan (1) Altered mental status: Admit patient to inpatient on telemetry Vital signs every 4 hours CBC CMP and divalproex level daily DVT Lovenox 40 mg SC daily Seizure precautions Neurological check every 4 hours Neurology consulted appreciate recommendations Given loading dose of divalproex 1 g, then continue 500 mg every 8 hours. Continue phenytoin the same dose as a home dose 100 mg 3 times daily Full code Present on Admission?: Yes (2) Seizures: As the above (3) Elevated lactic acid level: Most likely related to constant seizures Started gentle fluid hydration Present on Admission?: Yes (4) HTN (hypertension): Continue home medicine: Losartan 100 mg p.o. every morning, diltiazem 240 mg p.o. every morning, aspirin 81 mg p.o. every morning Present on Admission?: Yes (5) Hyperlipidemia: Atorvastatin 40 mg p.o. nightly Present on Admission?: Yes (6) Mild dementia: As the above Present on Admission?: Yes (7) History of CVA (cerebrovascular accident): As above Present on Admission?: Yes History of Present Illness Chief Complaint: status epilepticus Primary Care Provider: Reno Beck MD scheduledPatient is a 88 years old male with past medical history of seizure disorder, status post CVA accident, mild dementia, diabetes mellitus type 2, anxiety, hyperlipidemia, hypertension, dependence on supplemental oxygen 2.5 L, right pleural effusion, recurrent UTI, metabolic encephalopathy, was brought by EMS to the emergency room with a complaint of altered mental status that started 3 hours ago before arrival to the emergency room. Patient's stated that patient has ongoing seizures on and off and the last seizure was couple months ago. Old seizure started after patient had stroke in 2004. Patient reports that half an hour after they left home he started to seize again. She reports that he normally stairs does not respond his feet kick and his body twitches. He was more confused than normal. Patient is poor historian and during the seizures appears to be confused and not able to answer the questions. Patient complains of patient is wheezing on having a cough. In the emergency room patient received 1 g of Keppra. But he is seizing continued. Immediate intervention was needed and we called Dr. Gray neurology who recommended to give patient 1 g of divalproex since his level from March are very low 3.4. After receiving the dose of divalproex seizure stopped Dr. Gray recommended to continue with 500 mg 3 times a day of the Divalproex. He recommended not to change the dose of phenytoin and continue with 100 mg p.o. 3 times daily. He also recommended if patient goes back to status epilepticus to transfer patient to [facility]. Patient accepted this recommendation. Labs are reviewed: No cell count 9.82, hemoglobin 12.1, hematocrit 37.4, platelets 201, PT 11, INR 1.1, APTT 23.9, sodium 141, potassium 4, chloride 101, carbon dioxide 33, anion gap 7, BUN 19, creatinine 0.88, GFR 77.8, lactic acid 4.19, A ST 16, ALT 22 albumin 3, globulin 4.1. Decision was made to admit patient to PCU telemetry. Allergies Allergy/AdvReac Type Severity Reaction Status Date / Time lorazepam [From Ativan] AdvReac Mild Agitated - Verified 03/01/19 12:48 paradoxical response Home Medications Home Medications Medication Instructions Recorded Confirmed Type diltiazem HCl 240 mg PO QAM 06/21/18 04/25/19 History hydrochlorothiazide 12.5 mg PO QAM 06/21/18 04/25/19 History metformin 1,000 mg PO BID 08/19/18 04/25/19 History diclofenac sodium [Voltaren] 1 % EXT QID PRN #100 gm 10/02/18 04/25/19 Rx levalbuterol tartrate 2 puffs INH Q6H PRN #15 gm 10/13/18 04/25/19 Rx escitalopram 5 mg tablet 5 mg PO DAILY #90 tab 01/22/19 04/25/19 Rx atorvastatin 40 mg tablet 40 mg PO HS #90 tab 01/27/19 04/25/19 Rx losartan 100 mg tablet 100 mg PO QAM #90 tab 01/27/19 04/25/19 Rx nitrofurantoin macrocrystal 50 mg 50 mg PO QPM 03/11/19 04/25/19 History capsule aspirin 81 mg tablet,delayed 81 mg PO QAM 03/25/19 04/25/19 History release loratadine 10 mg tablet 10 mg PO QAM 03/25/19 04/25/19 History multivitamin with minerals tablet 1 tab PO QAM 03/25/19 04/25/19 History phenytoin sodium extended 100 mg 100 mg PO TID 03/25/19 04/25/19 History capsule potassium chloride ER 10 mEq 10 meq PO BID #180 cap 03/25/19 04/25/19 Rx capsule,extended release divalproex ER 250 mg 500 mg PO QAM tab 03/27/19 04/25/19 History tablet,extended release 24 hr albuterol sulfate [Ventolin HFA] 2 puff INHALATION QID PRN 04/25/19 04/25/19 History ciprofloxacin 250 mg tablet 250 mg PO BID #14 tab 04/25/19 Rx cyanocobalamin (vitamin B-12) 500 mcg PO DAILY 04/25/19 04/25/19 History [Vitamin B-12] divalproex 750 mg PO HS 04/25/19 04/25/19 History quetiapine 25 mg PO DAILY PRN 04/25/19 04/25/19 History Past Med/Surg History Medical History Insomnia Mild dementia Anxiety Anemia Physical deconditioning History of CVA (cerebrovascular accident) Chronic respiratory failure with hypoxia (Chronic) Seizure disorder (Chronic) Pleural effusion (Chronic) Chronic UTI DM type 2 (diabetes mellitus, type 2) (Chronic) Chronic UTI (Chronic) DM type 2 (diabetes mellitus, type 2) (Chronic) Dyslipidemia (Chronic) Pleural effusion, right (Chronic) Seizures (Chronic) Stroke (Resolved) Acute hyperglycemia Complex partial seizure Elevated WBC count Elevated lactic acid level Metabolic encephalopathy Surgical History History of thoracentesis (Resolved) S/P thoracentesis Family History Other Hypertension Social History Preferred Language: Polish Communication Ability: Effective 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 Beliefs That Will Affect Care: None marital status: Current Living Situation: Spouse current occupational status: retired Feels Safe at Home: Yes Smoking Status: Former smoker Second Hand Exposure: No ; Hx Alcohol Use: No Hx Substance Use: No Review of Systems Review of Systems: All systems reviewed & are unremarkable except as noted in HPI & below Physical Exam Constitutional: WD/WN, vitals as above well developed and + frail appearing Eyes: PERRL, conjunctivae normal, anicteric sclerae ENMT: external ear and nose normal, oropharynx normal Neck: trachea midline, no thyromegaly Respiratory: Auscultation: + crackles, + wheezes and + bronchovesicular breath sounds Cardiovascular: RRR, no murmur, no edema Gastrointestinal (Abdomen): normal bowel sounds, soft, nontender, no hepatosplenomegaly Musculoskeletal: no cyanosis or clubbing, extremities motor strength 5/5 Skin: no rashes, warm and dry Neurologic: + confused Speech / Cognition: + abnormal speech Results & Data Vital Signs (Past 12 Hours) Vital Signs Temp Pulse Resp BP Pulse Ox 04/25/19 16:30 81 18 138/73 99 04/25/19 16:00 79 14 156/82 H 99 04/25/19 15:31 85 13 157/92 H 98 04/25/19 15:00 87 17 161/82 H 99 04/25/19 14:30 85 21 151/81 H 96 04/25/19 14:22 88 24 134/91 04/25/19 13:31 89 21 149/98 H 92 04/25/19 13:00 84 17 174/89 H 98 04/25/19 12:51 85 18 168/92 H 98 04/25/19 12:01 104 H 24 135/95 98 04/25/19 12:00 104 H 24 04/25/19 11:44 89 20 92 04/25/19 10:50 36.8 C 89 20 140/83 92 Code Status & VTE Plan Code Status Full code VTE Prophylaxis Plan VTE Prophylaxis will be ordered: Yes PG Care Time/CCT Total # of Minutes Spent Total Time Spent with Patient: Total time spent is greater than 50% in coordination of care (as documented) at patient's floor/unit and/or counseling patient: (1) Altered mental status Altered mental status type: unspecified Qualified Code(s): R41.82 - Altered mental status, unspecified
[2019-04-25] MEDS ORDERED: ACETAMINOPHEN 325 MG TAB PO PRN (19:50)
[2019-04-25] MEDS ORDERED: DICLOFENAC SOD 1% GEL 100 GM TUBE EXT PRN (19:50)
[2019-04-25] MEDS ORDERED: LEVALBUTEROL TARTRATE 15 GM HFA.AER.AD INH PRN (19:50)
[2019-04-25] MEDS ORDERED: POLYETHYLENE (MIRALAX) 17 GM PACK PO PRN (19:50)
[2019-04-25] MEDS ORDERED: MAGNESIUM HYDROXIDE SUSP 30 ML UDC PO PRN (19:50)
[2019-04-25] MEDS ORDERED: ALBUTEROL HFA 8 GM INHALER INH PRN (19:50)
[2019-04-25] MEDS ORDERED: QUETIAPINE FUMARATE 25 MG TABLET PO PRN (19:50)
[2019-04-25] MEDS ORDERED: ALUMINUM/MAGNESIUM SUSP 30 ML UDC PO PRN (19:50)
[2019-04-25] MEDS: SODIUM CHLORIDE 0.9% 1000ML 1,000 ML IV SCH (20:57)
[2019-04-25] MEDS: POTASSIUM CHLORIDE 10 MEQ TABCR PO SCH (21:03)
[2019-04-25] MEDS: ENOXAPARIN INJ 40 MG/0.4 ML SYR SQ SCH (21:03)
[2019-04-25] MEDS: PHENYTOIN SODIUM ER 100 MG CAP PO SCH (21:04)
[2019-04-25] MEDS: ATORVASTATIN 40 MG TAB PO SCH (21:04)
[2019-04-25] MEDS: DIVALPROEX DELAY RELEASE 500 MG TAB PO SCH (21:12)
[2019-04-26] MEDS: ASPIRIN 81 MG ECTAB PO SCH (07:35)
[2019-04-26] MEDS: ESCITALOPRAM OXALATE 10 MG TAB PO SCH (07:35)
[2019-04-26] MEDS: hydroCHLOROthiazide 25 MG TAB PO SCH (07:35)
[2019-04-26] MEDS: CEROVITE ADV FORMULA TAB PO SCH (07:35)
[2019-04-26] MEDS: CYANOCOBALAMIN 500 MCG TABLET (VITAMIN B-12) PO SCH (07:35)
[2019-04-26] MEDS: LORATADINE 10 MG TAB PO SCH (07:35)
[2019-04-26] MEDS: DIVALPROEX DELAY RELEASE 500 MG TAB PO SCH ×3 (07:35→19:42)
[2019-04-26 07:36] LABS: Basophils # (auto) 0.02 K/uL (0-0.2); Basophils % (auto) 0.3 %; Eosinophils % (auto) 3.1 %; Hematocrit (blood only) 33.7 % (42-52); Hemoglobin 10.9 g/dL (14.0-18.0); Immature Granulocytes # (auto) 0.03 K/uL (0.00-0.02); Immature Granulocytes % (auto) 0.5 %; Lymphocytes # (auto) 1.29 K/uL (1.2-3.4); Lymphocytes % (auto) 19.8 %; Mean Corpuscular Hgb Conc 32.3 g/dL (32-36); Mean Corpuscular Volume 97.1 fL (80-100); Mean Platelet Volume 10.4 fL (7.4-10.4); Monocytes # (auto) 0.94 K/uL (0.11-0.59); Monocytes % (auto) 14.4 %; Neutrophils # (auto) 4.03 K/uL (1.4-6.5); Neutrophils % (auto) 61.9 %; Platelet Count 154 K/uL (130-400); RDW Coefficient of Variation 13.4 % (11.5-14.5); RDW Standard Deviation 47.3 fL (36.4-46.3); Red Blood Count 3.47 M/uL (4.7-6.1); White Blood Count 6.51 K/uL (4.8-10.8)
[2019-04-26] MEDS: dilTIAZem HCL 240 MG CAPCR PO SCH (07:36)
[2019-04-26] MEDS: PHENYTOIN SODIUM ER 100 MG CAP PO SCH ×3 (07:36→19:43)
[2019-04-26] MEDS: LOSARTAN POTASSIUM 50 MG TAB PO SCH (07:36)
[2019-04-26] MEDS: POTASSIUM CHLORIDE 10 MEQ TABCR PO SCH ×2 (07:36→19:43)
[2019-04-26 08:08] LABS: Albumin Level 2.5 gm/dl (3.4-5.0); BUN Creatinine Ratio 26.2 (10-20); Calcium 8.4 mg/dl (8.5-10.1); Creatinine Clr Calc Pharmacy 69.3 ml/min; Est GFR (African American) 99.6; Potassium 3.9 mmol/L (3.5-5.1)
[2019-04-26 08:14] LABS: Albumin Globulin Ratio 0.7 (0.9-2); Bilirubin,Total 0.3 mg/dl (0.2-1); Globulin 3.6 gm/dl (2.5-4.0); Total Protein 6.1 gm/dl (6.4-8.2)
--- NOTE | 2019-04-26 09:07 | Neurology Consultation ---
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 He is on 81 mg aspirin tablet daily and is stable. 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 As a result of the stroke he has had a history of seizure disorder not adequately controlled. He is on subtherapeutic levels of both Dilantin and Depakote. I think that this is the case because of an interaction between Depakote and Dilantin, which keeps the dose of each lower than they would be if they were use singly. The patient's altered mental status is a combination of his underlying dementia and probable post ictal state. Urinary tract infection cannot be excluded but is urinalysis looks unremarkable on admission. He is afebrile and does not have an elevated white count. He has no other metabolic abnormality. Currently is improved from admission and does not have any significant focal abnormalities. I do not suspect a new stroke. Recommendations: 1. Continue Depakote 500 mg p.o. 3 times daily for now. 2. Decrease Dilantin to 100 mg twice a day (and I will likely taper this off). 3. Check a trough Depakote level each morning. 4. I see no reason for additional neurologic testing at this time such as MRI or EEG. Overall, I spent a total of 110 minutes with this case including review of records, review of CT films, direct evaluation the patient at bedside, and discussion of the case with the patient at bedside, and Dr. Levy, including differential diagnosis and treatment options. History of Present Illness Reason for Consultation: Patient is a an 88-year-old, who I was asked to see the request of Dr. Garcia, for neurologic consultation regarding status epilepticus. Requesting Physician: Dr. Garcia Attending Physician: Lamont Levy, DO History of Present Illness In December of 2004, the patient had a right posterior cerebral artery stroke resulting in a left occipital infarct. This left him with a left homonymous hemianopsia. In 2009 the patient started having seizures and was initiated on Dilantin. In 2015 breakthrough seizures occurred and he was initiated on Depakote and stayed on both medications. Apparently he occasionally has seizures particularly when he has an acute medical problems such as a UTI. He is followed by Dr. Gray. In September of this year, Dilantin was 9.1 and Depakote 56. In November Dilantin was 6.4 and Depakote 48. On March 27, Dilantin was 6.3 and Depakote 34. According to history his last seizure was approximately a month ago. He has had multiple admissions to the hospital and recently was admitted for aspiration pneumonia and UTI. He is on supplemental oxygen. He has a history of hypertension, dyslipidemia, anxiety, and type 2 diabetes. According to [facility] outpatient record from November (the last time he saw Neurology) the patient was on Depakote 250 mg tablets 3 in the morning and 3 at night. He was also on phenytoin 100 mg 3 times a day. Apparently, the patient woke on April 25 and his discovered that he was confused. She was uncertain if he had had a seizure but this was possible given his state of confusion. He refused EMS when they arrived. Not too long after EMS left she witnessed a episode of body twitching and kicking of his legs. He was more confused and he was brought to the emergency room. There is a possibility of urinary tract infection as well. Apparently he did not have more than 1 seizure at home and did not sees in the ambulance. He arrived to the emergency room April 25 at 1050 with a temperature 36.8, pulse 89 regular, respiratory 20, blood pressure 140/83, and O2 saturation 92%. He was confused. CBC showed some anemia and Chem profile was largely unremarkable. Dilantin level was 6.2 and valproic acid level was 55. Urinalysis was unremarkable. Chest x-ray showed stable loculated right pleural effusion and cardiomegaly with mild congestive changes. CT scan of the head showed old right occipital stroke and small vessel ischemic change as before with no acute changes. I reviewed this CT. During his stay in the emergency room after the decision to admit him was made, he had a seizure of uncertain duration. He was given extra Depakote at the advice of Dr. Gray via telephone. Apparently he has had no seizure activity since admission on the floor. Blood pressure this morning is 168/89. Heart rhythm has been mostly sinus rhythm in the 60s to 70s but he has occasional accelerated junctional rhythm. This morning, Depakote level was 45. The patient currently has no complaint of pain or headache chest pain or breathing problems, abdominal pain, weakness and numbness of the limbs, speech or confusion problems. Allergies Allergy/AdvReac Type Severity Reaction Status Date / Time lorazepam [From Ativan] AdvReac Mild Agitated - Verified 03/01/19 12:48 paradoxical response Home Medications Home Medications Medication Instructions Recorded Confirmed Type diltiazem HCl 240 mg PO QAM 06/21/18 04/25/19 History hydrochlorothiazide 12.5 mg PO QAM 06/21/18 04/25/19 History metformin 1,000 mg PO BID 08/19/18 04/25/19 History diclofenac sodium [Voltaren] 1 % EXT QID PRN #100 gm 10/02/18 04/25/19 Rx levalbuterol tartrate 2 puffs INH Q6H PRN #15 gm 10/13/18 04/25/19 Rx escitalopram 5 mg tablet 5 mg PO DAILY #90 tab 01/22/19 04/25/19 Rx atorvastatin 40 mg tablet 40 mg PO HS #90 tab 01/27/19 04/25/19 Rx losartan 100 mg tablet 100 mg PO QAM #90 tab 01/27/19 04/25/19 Rx nitrofurantoin macrocrystal 50 mg 50 mg PO QPM 03/11/19 04/25/19 History capsule aspirin 81 mg tablet,delayed 81 mg PO QAM 03/25/19 04/25/19 History release loratadine 10 mg tablet 10 mg PO QAM 03/25/19 04/25/19 History multivitamin with minerals tablet 1 tab PO QAM 03/25/19 04/25/19 History phenytoin sodium extended 100 mg 100 mg PO TID 03/25/19 04/25/19 History capsule potassium chloride ER 10 mEq 10 meq PO BID #180 cap 03/25/19 04/25/19 Rx capsule,extended release divalproex ER 250 mg 500 mg PO QAM tab 03/27/19 04/25/19 History tablet,extended release 24 hr albuterol sulfate [Ventolin HFA] 2 puff INHALATION QID PRN 04/25/19 04/25/19 History ciprofloxacin 250 mg tablet 250 mg PO BID #14 tab 04/25/19 Rx cyanocobalamin (vitamin B-12) 500 mcg PO DAILY 04/25/19 04/25/19 History [Vitamin B-12] divalproex 750 mg PO HS 04/25/19 04/25/19 History quetiapine 25 mg PO DAILY PRN 04/25/19 04/25/19 History Patient History Medical History Insomnia Mild dementia Anxiety Anemia Physical deconditioning History of CVA (cerebrovascular accident) Chronic respiratory failure with hypoxia (Chronic) Seizure disorder (Chronic) Pleural effusion (Chronic) Chronic UTI DM type 2 (diabetes mellitus, type 2) (Chronic) Chronic UTI (Chronic) DM type 2 (diabetes mellitus, type 2) (Chronic) Dyslipidemia (Chronic) Pleural effusion, right (Chronic) Seizures (Chronic) Stroke (Resolved) Acute hyperglycemia Complex partial seizure Elevated WBC count Elevated lactic acid level Metabolic encephalopathy Surgical History History of thoracentesis (Resolved) S/P thoracentesis Family History Mother , age 93 No problems noted. Father , age 83 with some sort of cancer No problems noted. 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 Feels Safe at Home: Yes Smoking Status: Former smoker Smoking End Date: Uncertain but after he retired age 67 ; Second Hand Exposure: No ; Hx Alcohol Use: No Review of Systems Constitutional: + fatigue; no fever and no weakness Eyes: no diplopia, no eye pain and no worsening vision Ear, Nose, Mouth, Throat: no ear pain, no tinnitus, no hearing loss, no dizziness, no snoring, no hoarseness and no dysphagia Respiratory: no cough and no dyspnea Cardiovascular: no chest pain, no palpitations and no lightheadedness Gastrointestinal: no abdominal pain, no nausea and no vomiting Genitourinary: + urinary incontinence; no dysuria Musculoskeletal: no back pain, no neck pain, no radicular pain, no joint pain and no myalgia Integumentary: no rash and no lesions Neurologic: + generalized weakness and + memory loss; no gait abnormality, no localized weakness, no tingling, no numbness, no tremor(s), no abnormal movements, no headache(s), no abnormal speech and no confusion Psychiatric: no depression, no irritability, no anxiety, no difficulty concentrating, no confusion and no hallucinations Endocrine: no fatigue and no flushing Hematologic / Lymphatic: no easy bleeding and no easy bruising Allergy / Immunological: no urticaria and no problem reported Physical Exam Physical Exam: The patient is right-handed for eating and left-handed for writing and throwing. He kicks with his right foot. The patient is awake, alert, and attentive. Speech is normal without any of aphasia or dysarthria. He was oriented to his name and age and follows one-step commands well. His mood was reasonable and his affect was mildly flat. His memory was affected but he did have reasonable past/remote memory. The discs are sharp with positive venous pulsations bilaterally. There are no exudates, hemorrhages, or blood vessel changes seen. Pupils are 3 mm bilaterally and reactive to light. Extraocular eye muscles are intact without nystagmus. Patient had a left homonymous hemianopsia present. There are no deficits to sensation in the face in all 3 distributions of the fifth cranial nerve bilaterally. Corneal reflexes are positive bilaterally. Facial strength and symmetry was normal bilaterally. Hearing seems to be mildly decreased bilaterally. Palate moves well without asymmetry. There is normal sternocleidomastoid and trapezius (shoulder shrug) strength bilaterally. Tongue is midline with good strength bilaterally. Neck has a full range of motion without discomfort. There are no cervical bruits bilaterally. There are no cranial or ocular bruits. Heart is without murmur. There is a regular rhythm and rate. Cervical, thoracic, and lumbar spine are nontender to palpation. Gait was not tested, and stance sitting up in bed is poor. With outstretched arms there is no drift. There are no resting, postural, or action tremors. There is no ataxia with finger to nose testing. There is good facility in the hands. No other abnormal involuntary movements are noted. Motor strength is 5/5 diffusely in the arms bilaterally including deltoids, biceps, triceps, brachioradialis, wrist flexors and extensors, advanced practice psychiatric nurse, and intrinsic hand muscles. Motor strength is 5/5 diffusely in the legs bilaterally including hip flexors, quadriceps, hamstrings, gastrocnemius, tibialis anterior, tibialis posterior, and Peroneii muscles. Toe extensors are normal and there is good bulk in the extensor digitorum brevis muscles bilaterally. The limbs have good tone without rigidity or spasticity. There is no atrophy noted in the muscles. Muscle bulk is normal, there is no tenderness to palpation, no myotonia to percussion, and no fasciculations seen. Sensory examination is intact to touch and pin throughout all 4 limbs diffusely, however, he may have some decreased sensation to touch in the right foot. Reflexes are 1/4 in the biceps, triceps, brachioradialis, and quadriceps tendons bilaterally. Achilles tendon reflexes are absent bilaterally. There is no clonus bilaterally. Toes are downgoing with plantar stimulation on the left and equivocal to downgoing on the right. Peripheral pulses are present and of normal quality distally in all 4 limbs. There is no peripheral edema noted in the limbs. Results & Data Vital Signs (Past 12 Hours) Vital Signs Temp Pulse Pulse Resp BP Pulse Ox 04/26/19 07:30 36.8 C 71 18 168/89 H 96 04/26/19 04:26 36.5 C 65 19 147/72 H 96 04/26/19 00:00 69 04/25/19 23:43 36.0 C L 82 18 145/74 H 90 PG Care Time/CCT Total # of Minutes Spent Total Time Spent with Patient: 110 Total time spent is greater than 50% in coordination of care (as documented) at patient's floor/unit and/or counseling patient: (1) Altered mental status Altered mental status type: unspecified Qualified Code(s): R41.82 - Altered mental status, unspecified
[2019-04-26] MEDS: SODIUM CHLORIDE 0.9% 1000ML 1,000 ML IV SCH (09:30)
--- NOTE | 2019-04-26 13:43 | Hospitalist Progress Note ---
Date of Service April 26, 2019 Assessment & Plan (1) Seizures: breakthrough seizure in setting of low depakote and dilantin levels no signs of infection, he typically gets seizure when he has a UTI or pneumonia discussed at length with Dr. Knox today he recommends Depakote 500mg TID while here and decrease Dilantin 100mg BID likely plan to taper off of Dilantin check daily Depakote level no need for MRI brain or EEG at this time unless he has further seizure activity (2) Altered mental status: post ictal confusion mental state is clear today no signs of infection or electrolyte disturbance that would cause the confusion given his history of having confusion after seizures, this is most logical explanation (3) Elevated lactic acid level: Most likely related to seizures stop fluids (4) HTN (hypertension): Continue home medicine: Losartan 100 mg p.o. every morning, diltiazem 240 mg p.o. every morning, aspirin 81 mg p.o. every morning (5) Hyperlipidemia: Atorvastatin 40 mg p.o. nightly (6) Mild dementia: As the above (7) History of CVA (cerebrovascular accident): As above (8) Pleural effusion: chronic on the right, stable Subjective patient doing well, no seizure activity since admission reviewed labs, stable, no signs of infection on UA and CXR discussed the case with Dr. Knox, he recommends using Depakote alone and tapering off of Dilantin discussed this plan with patient and his , they are in agreement discussed with RN, keep on tele today and likely to medical floor tomorrow patient eating well, breathing comfortably, no abdominal pain, no nausea Review of Systems Review of Systems: All systems reviewed & are unremarkable except as noted in HPI & below Constitutional: + weakness; no fever Respiratory: no cough and no dyspnea Cardiovascular: no chest pain and no edema Gastrointestinal: no abdominal pain, no nausea, no vomiting, no constipation and no diarrhea/loose stools Neurologic: + confusion (yesterday after the seizure) Physical Exam Constitutional: WD/WN, vitals as above Eyes: PERRL, conjunctivae normal, anicteric sclerae ENMT: external ear and nose normal, oropharynx normal Neck: trachea midline, no thyromegaly Respiratory: normal respiratory effort, lungs clear to auscultation (decreased breath sounds in the right base) Cardiovascular: RRR, no murmur, no edema Gastrointestinal (Abdomen): normal bowel sounds, soft, nontender, no hepatosplenomegaly Musculoskeletal: no cyanosis or clubbing, extremities motor strength 5/5 Skin: no rashes, warm and dry Neurologic: patellar DTR's 2+ bilat, sensation intact and PERRL, EOMI, accommodation nl, no face palsy, no dysarthria Psychiatric: A+Ox3, euthymic affect Lymphatic: no cervical or axillary lymphadenopathy Results & Data Vital Signs (Past 12 Hours) Vital Signs Temp Pulse Resp BP Pulse Ox 04/26/19 11:31 36.5 C 76 20 161/79 H 96 04/26/19 07:30 36.8 C 71 18 168/89 H 96 04/26/19 04:26 36.5 C 65 19 147/72 H 96 Laboratory Results Laboratory Results - last 24 hr 04/25/19 04/26/19 04/26/19 20:00 06:41 06:41 WBC 6.51 RBC 3.47 L Hgb 10.9 L Hct 33.7 L MCV 97.1 MCH 31.4 MCHC 32.3 RDW Std Deviation 47.3 H RDW Coeff of Rae 13.4 Plt Count 154 MPV 10.4 Immature Gran % (Auto) 0.5 Neut % (Auto) 61.9 Lymph % (Auto) 19.8 Lares % (Auto) 14.4 Eos % (Auto) 3.1 Baso % (Auto) 0.3 Immature Gran # (Auto) 0.03 H Neut # (Auto) 4.03 Lymph # (Auto) 1.29 Lares # (Auto) 0.94 H Eos # (Auto) 0.20 Baso # (Auto) 0.02 Sodium 142 Potassium 3.9 Chloride 105 Carbon Dioxide 33 H Anion Gap 4.0 BUN 18 Creatinine 0.69 Est Cr Clr Drug Dosing 69.3 Est GFR ( Amer) 99.6 Est GFR (Non-Af Amer) 86.0 BUN/Creatinine Ratio 26.2 H Glucose 95 Calcium 8.4 L Total Bilirubin 0.3 AST 10 L ALT 18 Alkaline Phosphatase 67 NT-Pro-B Natriuret Pep 932 Total Protein 6.1 L Albumin 2.5 L Globulin 3.6 Albumin/Globulin Ratio 0.7 L Valproic Acid 55 04/26/19 06:41 WBC RBC Hgb Hct MCV MCH MCHC RDW Std Deviation RDW Coeff of Rae Plt Count MPV Immature Gran % (Auto) Neut % (Auto) Lymph % (Auto) Lares % (Auto) Eos % (Auto) Baso % (Auto) Immature Gran # (Auto) Neut # (Auto) Lymph # (Auto) Lares # (Auto) Eos # (Auto) Baso # (Auto) Sodium Potassium Chloride Carbon Dioxide Anion Gap BUN Creatinine Est Cr Clr Drug Dosing Est GFR ( Amer) Est GFR (Non-Af Amer) BUN/Creatinine Ratio Glucose Calcium Total Bilirubin AST ALT Alkaline Phosphatase NT-Pro-B Natriuret Pep Total Protein Albumin Globulin Albumin/Globulin Ratio Valproic Acid 45 L Medications Administered Current Inpatient Medications Acetaminophen (Tylenol) 650 mg PO Q4H PRN PRN Reason: Pain or Fever Stop: 05/25/19 19:49 Al Hydrox/Mg Hydrox/Simethicone (Maalox) 15 ml PO Q4H PRN PRN Reason: Dyspepsia Stop: 05/25/19 19:49 Albuterol (Ventolin Hfa) 2 puffs INH QID PRN PRN Reason: Shortness Of Breath Or Wheezing Stop: 05/25/19 19:49 Aspirin (Ecotrin Ectab) 81 mg PO QAM [facility] Stop: 05/26/19 08:59 Last Admin: 04/26/19 07:35 Dose: 81 mg Documented by: Atorvastatin Calcium (Lipitor) 40 mg PO HS [facility] Stop: 05/25/19 20:59 Last Admin: 04/25/19 21:04 Dose: 40 mg Documented by: Cyanocobalamin (Vitamin B-12) 500 mcg PO DAILY [facility] Stop: 05/26/19 08:59 Last Admin: 04/26/19 07:35 Dose: 500 mcg Documented by: Diclofenac Sodium (Voltaren 1% Top) 1 appln EXT QID PRN PRN Reason: shoulder pain Stop: 05/25/19 19:49 Diltiazem HCl (Cardizem Cd) 240 mg PO QAM [facility] Stop: 05/26/19 08:59 Last Admin: 04/26/19 07:36 Dose: 240 mg Documented by: Divalproex Sodium (Depakote Delay Release) 500 mg PO TID [facility] Stop: 05/25/19 20:59 Last Admin: 04/26/19 07:35 Dose: 500 mg Documented by: Enoxaparin Sodium (Lovenox) 40 mg SQ Q24H [facility] Stop: 05/25/19 20:29 Last Admin: 04/25/19 21:03 Dose: Not Given Documented by: Escitalopram Oxalate (Lexapro Tab) 5 mg PO QAM [facility] Stop: 05/26/19 08:59 Last Admin: 04/26/19 07:35 Dose: 5 mg Documented by: Hydrochlorothiazide (Hctz) 12.5 mg PO QAM [facility] Stop: 05/26/19 08:59 Last Admin: 04/26/19 07:35 Dose: 12.5 mg Documented by: Sodium Chloride (Nss 1000ml) 1,000 mls @ 80 mls/hr IV .[id number] [facility] Stop: 05/25/19 19:49 Last Admin: 04/26/19 09:30 Dose: 80 mls/hr Documented by: Levalbuterol HCl (Xopenex Hfa) 2 puffs INH Q6H PRN PRN Reason: shortness of breath Stop: 05/25/19 19:49 Lor[facility]ad[facility] ([facility]itin) [facility] Stop: 05/26/19 08:59 Last Admin: 04/26/19 07:35 Dose: 10 mg Documented by: Losartan Potassium (Cozaar) 100 mg PO [facility] Stop: 05/26/19 08:59 Last Admin: 04/26/19 07:36 Dose: 100 mg Documented by: Magnesium Hydroxide (Milk Of Magnesia) 30 ml PO Q12H PRN PRN Reason: Constipation Stop: 05/25/19 19:49 Multivitamins/Minerals (Multivitamin W/ Minerals Tab) 1 [facility] [place] Stop: 05/26/19 08:59 Last Admin: 04/26/19 07:35 Dose: 1 tab Documented by: Phenytoin Sodium (Dilantin Er) 100 mg PO DAILY@0700,1400,2130 [facility] Stop: 05/25/19 21:29 Last Admin: 04/26/19 07:36 Dose: 100 mg Documented by: Polyethylene Glycol (Miralax Powder Packet) 17 gm PO DAILY PRN PRN Reason: Constipation Stop: 05/25/19 19:49 Potassium Chloride (Klor-Con M10) 10 meq PO BID [facility] Stop: 05/25/19 20:59 Last Admin: 04/26/19 07:36 Dose: 10 meq Documented by: Quetiapine Fumarate (Seroquel) 25 mg PO DAILY PRN PRN Reason: . Stop: 05/25/19 19:49 Last Admin: 04/25/19 21:04 Dose: 25 mg Documented by: PG Care Time/CCT Total # of Minutes Spent Total Time Spent with Patient: Total time spent is greater than 50% in coordination of care (as documented) at patient's floor/unit and/or counseling patient: (1) Altered mental status Altered mental status type: unspecified Qualified Code(s): R41.82 - Altered mental status, unspecified
[2019-04-26] MEDS: ENOXAPARIN INJ 40 MG/0.4 ML SYR SQ SCH (19:42)
[2019-04-26] MEDS: ATORVASTATIN 40 MG TAB PO SCH (19:43)
[2019-04-27] MEDS: PHENYTOIN SODIUM ER 100 MG CAP PO SCH (05:28)
[2019-04-27 06:49] LABS: Basophils # (auto) 0.02 K/uL (0-0.2); Basophils % (auto) 0.3 %; Eosinophils # (auto) 0.29 K/uL (0-0.5); Eosinophils % (auto) 4.3 %; Hematocrit (blood only) 36.7 % (42-52); Hemoglobin 12.2 g/dL (14.0-18.0); Immature Granulocytes # (auto) 0.05 K/uL (0.00-0.02); Immature Granulocytes % (auto) 0.7 %; Lymphocytes % (auto) 16.2 %; Mean Corpuscular Hgb Conc 33.2 g/dL (32-36); Mean Corpuscular Volume 96.1 fL (80-100); Mean Platelet Volume 10.1 fL (7.4-10.4); Monocytes # (auto) 1.04 K/uL (0.11-0.59); Monocytes % (auto) 15.4 %; Neutrophils # (auto) 4.27 K/uL (1.4-6.5); Neutrophils % (auto) 63.1 %; Platelet Count 197 K/uL (130-400); RDW Coefficient of Variation 13.3 % (11.5-14.5); RDW Standard Deviation 46.2 fL (36.4-46.3); Red Blood Count 3.82 M/uL (4.7-6.1); White Blood Count 6.77 K/uL (4.8-10.8)
[2019-04-27 07:26] LABS: Albumin Level 2.8 gm/dl (3.4-5.0); BUN Creatinine Ratio 23.1 (10-20); Calcium 8.7 mg/dl (8.5-10.1); Creatinine Clr Calc Pharmacy 59.1 ml/min; Est GFR (African American) 93.3; Est GFR (Non-African American) 80.5; Potassium 3.6 mmol/L (3.5-5.1)
[2019-04-27 07:28] LABS: Albumin Globulin Ratio 0.7 (0.9-2); Bilirubin,Total 0.4 mg/dl (0.2-1); Total Protein 6.8 gm/dl (6.4-8.2)
[2019-04-27] MEDS: CYANOCOBALAMIN 500 MCG TABLET (VITAMIN B-12) PO SCH (07:49)
[2019-04-27] MEDS: LORATADINE 10 MG TAB PO SCH (07:49)
[2019-04-27] MEDS: POTASSIUM CHLORIDE 10 MEQ TABCR PO SCH ×2 (07:49→20:25)
[2019-04-27] MEDS: dilTIAZem HCL 240 MG CAPCR PO SCH (07:49)
[2019-04-27] MEDS: DIVALPROEX DELAY RELEASE 500 MG TAB PO SCH ×3 (07:49→20:25)
[2019-04-27] MEDS: ESCITALOPRAM OXALATE 10 MG TAB PO SCH (07:49)
[2019-04-27] MEDS: ASPIRIN 81 MG ECTAB PO SCH (07:49)
[2019-04-27] MEDS: LOSARTAN POTASSIUM 50 MG TAB PO SCH (07:49)
[2019-04-27] MEDS: hydroCHLOROthiazide 25 MG TAB PO SCH (07:49)
[2019-04-27] MEDS: CEROVITE ADV FORMULA TAB PO SCH (07:50)
--- NOTE | 2019-04-27 09:08 | Hospitalist Progress Note ---
Date of Service April 27, 2019 Assessment & Plan (1) Seizures: breakthrough seizure in setting of low valproic acid and dilantin levels no signs of infection, he typically gets seizure when he has a UTI or pneumonia discussed at length with Dr. Knox on 04/26 he recommends Depakote 500mg TID while here and decrease Dilantin 100mg BID likely plan to taper off of Dilantin check valproic acid level every morning, this morning it is 46 which is low, goal would be around [address] Knox no need for MRI brain or EEG at this time unless he has further seizure activity transfer to medical floor today (2) Altered mental status: post ictal confusion mental state is clear past two days no signs of infection or electrolyte disturbance that would cause the confusion given his history of having confusion after seizures, this is most logical explanation (3) Elevated lactic acid level: Most likely related to seizures stop fluids (4) HTN (hypertension): Continue home medicine: Losartan 100 mg p.o. every morning, diltiazem 240 mg p.o. every morning, aspirin 81 mg p.o. every morning (5) Hyperlipidemia: Atorvastatin 40 mg p.o. nightly (6) Mild dementia: As the above (7) History of CVA (cerebrovascular accident): As above (8) Pleural effusion: chronic on the right, stable Plan: transfer to medical floor, PT/OT evaluations likely home in 1-2 days he always goes home with family, he has good support Subjective patient doing well today, more alert, pleasant sitting OOB in chair, ate all his breakfast CBC and BMP normal this morning, valproic acid level low at 46 patient is urinating and moving his bowels no dyspnea, no cough, no fever/chills d/w RN, will transfer to medical floor today Review of Systems Review of Systems: All systems reviewed & are unremarkable except as noted in HPI & below Constitutional: no fever, no chills, no sweats, no fatigue and no weakness Respiratory: no cough and no dyspnea Cardiovascular: no chest pain and no edema Gastrointestinal: no abdominal pain, no nausea, no vomiting, no constipation and no diarrhea/loose stools Neurologic: no seizure-like activity Physical Exam Constitutional: WD/WN, vitals as above Eyes: PERRL, conjunctivae normal, anicteric sclerae ENMT: external ear and nose normal, oropharynx normal Neck: trachea midline, no thyromegaly Respiratory: normal respiratory effort, lungs clear to auscultation (decreased breath sounds in the right base) Cardiovascular: RRR, no murmur, no edema Gastrointestinal (Abdomen): normal bowel sounds, soft, nontender, no hepatosplenomegaly Musculoskeletal: no cyanosis or clubbing, extremities motor strength 5/5 Skin: no rashes, warm and dry Neurologic: patellar DTR's 2+ bilat, sensation intact and PERRL, EOMI, accommodation nl, no face palsy, no dysarthria Psychiatric: A+Ox3, euthymic affect Lymphatic: no cervical or axillary lymphadenopathy Results & Data Vital Signs (Past 12 Hours) Vital Signs Temp Pulse Pulse Resp BP Pulse Ox 04/27/19 07:35 36.4 C L 82 18 186/88 H 96 04/27/19 03:08 36.5 C 73 19 179/85 H 98 04/27/19 00:00 67 04/26/19 23:41 37.1 C 69 18 167/80 H 97 Laboratory Results Laboratory Results - last 24 hr 04/27/19 04/27/19 04/27/19 06:23 06:23 08:04 WBC 6.77 RBC 3.82 L Hgb 12.2 L Hct 36.7 L MCV 96.1 MCH 31.9 MCHC 33.2 RDW Std Deviation 46.2 RDW Coeff of Rae 13.3 Plt Count 197 MPV 10.1 Immature Gran % (Auto) 0.7 Neut % (Auto) 63.1 Lymph % (Auto) 16.2 Barry % (Auto) 15.4 Eos % (Auto) 4.3 Baso % (Auto) 0.3 Immature Gran # (Auto) 0.05 H Neut # (Auto) 4.27 Lymph # (Auto) 1.10 L Barry # (Auto) 1.04 H Eos # (Auto) 0.29 Baso # (Auto) 0.02 Sodium 141 Potassium 3.6 Chloride 100 Carbon Dioxide 37 H Anion Gap 4.0 BUN 19 H Creatinine 0.81 Est Cr Clr Drug Dosing 59.1 Est GFR ( Amer) 93.3 Est GFR (Non-Af Amer) 80.5 BUN/Creatinine Ratio 23.1 H Glucose 100 H Calcium 8.7 Total Bilirubin 0.4 AST 11 L ALT 20 Alkaline Phosphatase 71 Total Protein 6.8 Albumin 2.8 L Globulin 4.0 Albumin/Globulin Ratio 0.7 L Valproic Acid 46 L Medications Administered Current Inpatient Medications Acetaminophen (Tylenol) 650 mg PO Q4H PRN PRN Reason: Pain or Fever Stop: 05/25/19 19:49 Al Hydrox/Mg Hydrox/Simethicone (Maalox) 15 ml PO Q4H PRN PRN Reason: Dyspepsia Stop: 05/25/19 19:49 Albuterol (Ventolin Hfa) 2 puffs INH QID PRN PRN Reason: Shortness Of Breath Or Wheezing Stop: 05/25/19 19:49 Aspirin (Ecotrin Ectab) 81 mg PO QAM [facility] Stop: 05/26/19 08:59 Last Admin: 04/27/19 07:49 Dose: 81 mg Documented by: Atorvastatin Calcium (Lipitor) 40 mg PO HS [facility] Stop: 05/25/19 20:59 Last Admin: 04/26/19 19:43 Dose: 40 mg Documented by: Cyanocobalamin (Vitamin B-12) 500 mcg PO DAILY [facility] Stop: 05/26/19 08:59 Last Admin: 04/27/19 07:49 Dose: 500 mcg Documented by: Diclofenac Sodium (Voltaren 1% Top) 1 appln EXT QID PRN PRN Reason: shoulder pain Stop: 05/25/19 19:49 Diltiazem HCl (Cardizem Cd) 240 mg PO QAM [facility] Stop: 05/26/19 08:59 Last Admin: 04/27/19 07:49 Dose: 240 mg Documented by: Divalproex Sodium (Depakote Delay Release) 500 mg PO TID [facility] Stop: 05/25/19 20:59 Last Admin: 04/27/19 07:49 Dose: 500 mg Documented by: Enoxaparin Sodium (Lovenox) 40 mg SQ Q24H [facility] Stop: 05/25/19 20:29 Last Admin: 04/26/19 19:42 Dose: 40 mg Documented by: Escitalopram Oxalate (Lexapro Tab) 5 mg PO QAM [facility] Stop: 05/26/19 08:59 Last Admin: 04/27/19 07:49 Dose: 5 mg Documented by: Hydrochlorothiazide (Hctz) 12.5 mg PO QAM [facility] Stop: 05/26/19 08:59 Last Admin: 04/27/19 07:49 Dose: 12.5 mg Documented by: Levalbuterol HCl (Xopenex Hfa) 2 puffs INH Q6H PRN PRN Reason: shortness of breath Stop: 05/25/19 19:49 Loratadine (Claritin) 10 mg PO QAM [facility] Stop: 05/26/19 08:59 Last Admin: 04/27/19 07:49 Dose: 10 mg Documented by: Losartan Potassium (Cozaar) 100 mg PO QAM [facility] Stop: 05/26/19 08:59 Last Admin: 04/27/19 07:49 Dose: 100 mg Documented by: Magnesium Hydroxide (Milk Of Magnesia) 30 ml PO Q12H PRN PRN Reason: Constipation Stop: 05/25/19 19:49 Multivitamins/Minerals (Multivitamin W/ Minerals Tab) [facility] Stop: 05/26/19 08:59 Last Admin: 04/27/19 07:50 Dose: 1 tab Documented by: Phenytoin Sodium (Dilantin Er) 100 mg PO BID [facility] Stop: 05/27/19 20:59 Polyethylene Glycol (Miralax Powder Packet) 17 gm PO DAILY PRN PRN Reason: Constipation Stop: 05/25/19 19:49 Potassium Chloride (Klor-Con M10) 10 meq PO BID [facility] Stop: 05/25/19 20:59 Last Admin: 04/27/19 07:49 Dose: 10 meq Documented by: PG Care Time/CCT Total # of Minutes Spent Total Time Spent with Patient: Total time spent is greater than 50% in coordination of care (as documented) at patient's floor/unit and/or counseling patient: (1) Altered mental status Altered mental status type: unspecified Qualified Code(s): R41.82 - Altered mental status, unspecified
--- NOTE | 2019-04-27 11:24 | Neurology Progress Note ---
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 He is on 81 mg aspirin tablet daily and is stable. 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 As a result of the stroke he has had a history of seizure disorder not adequately controlled. He is on subtherapeutic levels of both Dilantin and Depakote. I think that this is the case because of an interaction between Depakote and Dilantin, which keeps the dose of each lower than they would be if they were use singly. Today he is improved and has had no seizures since admission. His mental status seems clear as well. The patient's altered mental status was likely a combination of his underlying dementia and probable post ictal state. Urinary tract infection cannot be excluded but is urinalysis looks unremarkable on admission. He is afebrile and does not have an elevated white count. He has no other metabolic abnormality. Patient has no new focal abnormalities. Recommendations: 1. Continue Depakote 500 mg p.o. 3 times daily for now. 2. Decrease Dilantin 100 milligrams once daily today and then stop. 3. Check a trough Depakote level each morning. 4. I see no reason for additional neurologic testing at this time such as MRI or EEG. Overall, I spent a total of 25 minutes with this case including review of records, direct evaluation the patient at bedside, and discussion of the case with the patient at bedside, his RN, and Dr. Levy, including differential diagnosis and treatment options. Subjective In her headache. He feels well and is not dizzy. Nursing reports no new events overnight. No seizures have been reported since admission. Blood pressure is 186/88 Patient had some mild anemia and a Chem profile was unremarkable. Depakote level was 46. Hemoglobin A1c was 7.4. Physical Exam Physical Exam: Patient was sleepy but easily aroused with voice. He made eye contact and followed one-step commands well. He had no aphasia or dysarthria. Extraocular eye muscles are intact without nystagmus and there was no facial droop. With outstretched arms there is no drift and a strength was symmetrical in the limbs. There were no abnormal involuntary movements. Results & Data Vital Signs (Past 12 Hours) Vital Signs Temp Pulse Pulse Resp BP Pulse Ox 04/27/19 07:35 36.4 C L 82 18 186/88 H 96 04/27/19 03:08 36.5 C 73 19 179/85 H 98 04/27/19 00:00 67 04/26/19 23:41 37.1 C 69 18 167/80 H 97 PG Care Time/CCT Total # of Minutes Spent Total Time Spent with Patient: Total time spent is greater than 50% in coordination of care (as documented) at patient's floor/unit and/or counseling patient: (1) Altered mental status Altered mental status type: unspecified Qualified Code(s): R41.82 - Altered mental status, unspecified
[2019-04-27] MEDS: ENOXAPARIN INJ 40 MG/0.4 ML SYR SQ SCH (20:24)
[2019-04-27] MEDS: ATORVASTATIN 40 MG TAB PO SCH (20:26)
[2019-04-27] MEDS ORDERED: PHENYTOIN SODIUM ER 100 MG CAP PO SCH (21:00)
[2019-04-28 05:53] LABS: Basophils # (auto) 0.02 K/uL (0-0.2); Basophils % (auto) 0.3 %; Eosinophils # (auto) 0.37 K/uL (0-0.5); Eosinophils % (auto) 5.1 %; Hematocrit (blood only) 37.5 % (42-52); Hemoglobin 12.4 g/dL (14.0-18.0); Immature Granulocytes # (auto) 0.02 K/uL (0.00-0.02); Immature Granulocytes % (auto) 0.3 %; Lymphocytes % (auto) 16.5 %; Mean Corpuscular Hgb Conc 33.1 g/dL (32-36); Mean Corpuscular Volume 96.2 fL (80-100); Mean Platelet Volume 10.2 fL (7.4-10.4); Monocytes # (auto) 1.24 K/uL (0.11-0.59); Monocytes % (auto) 17.1 %; Neutrophils # (auto) 4.42 K/uL (1.4-6.5); Neutrophils % (auto) 60.7 %; Platelet Count 198 K/uL (130-400); RDW Coefficient of Variation 13.1 % (11.5-14.5); RDW Standard Deviation 46.1 fL (36.4-46.3); White Blood Count 7.27 K/uL (4.8-10.8)
[2019-04-28 06:29] LABS: Albumin Level 2.9 gm/dl (3.4-5.0); BUN Creatinine Ratio 24.1 (10-20); Calcium 8.4 mg/dl (8.5-10.1); Est GFR (African American) 90.6; Est GFR (Non-African American) 78.1; Potassium 3.5 mmol/L (3.5-5.1)
[2019-04-28 06:32] LABS: Albumin Globulin Ratio 0.8 (0.9-2); Bilirubin,Total 0.3 mg/dl (0.2-1); Globulin 3.7 gm/dl (2.5-4.0); Total Protein 6.6 gm/dl (6.4-8.2)
[2019-04-28] MEDS: CYANOCOBALAMIN 500 MCG TABLET (VITAMIN B-12) PO SCH (07:44)
[2019-04-28] MEDS: LOSARTAN POTASSIUM 50 MG TAB PO SCH (07:44)
[2019-04-28] MEDS: ESCITALOPRAM OXALATE 10 MG TAB PO SCH (07:44)
[2019-04-28] MEDS: CEROVITE ADV FORMULA TAB PO SCH (07:44)
[2019-04-28] MEDS: hydroCHLOROthiazide 25 MG TAB PO SCH (07:45)
[2019-04-28] MEDS: ASPIRIN 81 MG ECTAB PO SCH (07:45)
[2019-04-28] MEDS: DIVALPROEX DELAY RELEASE 500 MG TAB PO SCH ×3 (07:46→21:18)
[2019-04-28] MEDS: POTASSIUM CHLORIDE 10 MEQ TABCR PO SCH ×2 (07:46→21:19)
[2019-04-28] MEDS: LORATADINE 10 MG TAB PO SCH (07:46)
[2019-04-28] MEDS: dilTIAZem HCL 240 MG CAPCR PO SCH (07:46)
[2019-04-28] MEDS ORDERED: PHENYTOIN SODIUM ER 100 MG CAP PO SCH (09:00)
--- NOTE | 2019-04-28 10:31 | Neurology Progress Note ---
Date of Service April 28, 2019 Assessment & Plan (1) Seizure disorder: Seizure disorder. Chronic issue. Recent breakthrough seizures with some concern for an interaction between the patient's Dilantin and Depakote. Dilantin has been discontinued. I would recommend increasing patient's Depakote DR to 1000 mg twice daily. We will check a follow-up valproic acid level in 5 to 7 days. Follow-up in outpatient neurology clinic. Present on Admission?: Yes Subjective Follow-up for seizure disorder The patient is an 88-year-old male with a history of a chronic right occipital stroke, chronic left homonymous hemianopsia, and seizure disorder for which he had been taking both Depakote and Dilantin. He presented with confusion and seizures on April 25. A phenytoin level at that time was 6.2 and a valproic acid level was 55. A CT of the head was negative for any acute process. He was given additional Depakote in the emergency department. His Dilantin has been discontinued given concerns over potential interaction with his Depakote. He has not had any additional seizures during his hospitalization. A valproic acid level this morning is 44. The patient does not have any additional complaints at this time. 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 Review of Systems Constitutional: no fever and no chills Eyes: as per Subjective / HPI and + blind spots Neurologic: no localized weakness and no abnormal speech Physical Exam Physical Exam: The patient is a well-developed elderly male. He is alert and fully oriented. Recent and remote memory intact. Attention and concentration normal. Patient exhibits a normal spontaneous speech pattern as well as an age- appropriate fund of knowledge. Processing speed is reduced. There is a left homonymous hemianopsia with confrontation visual field testing. Visual acuity normal. Pupils equal round react to light and accommodation. Eye movements normal. Facial sensation intact. There is no facial droop or weakness. Hearing intact. Palate elevates to midline. Shoulder shrug intact. Tongue protrudes to midline. Sensation intact. Deep tendon reflexes intact and symmetrical although Achilles tendon reflexes absent bilaterally. Muscle strength normal throughout. No tremors or abnormal movements observed. Results & Data Vital Signs (Past 12 Hours) Vital Signs Temp Pulse Pulse Resp BP BP Pulse Ox 04/28/19 07:14 36.4 C L 79 20 159/80 H 98 04/27/19 23:34 36.5 C 71 18 164/78 H 98 PG Care Time/CCT Total # of Minutes Spent Total Time Spent with Patient: Total time spent is greater than 50% in coordination of care (as documented) at patient's floor/unit and/or counseling patient:
--- NOTE | 2019-04-28 21:06 | Hospitalist Progress Note ---
Date of Service April 28, 2019 Assessment & Plan (1) Seizures: 2nd to subtherapeutic dilantin and depakote levels at presentation. no seizures since. nothing infectious or metabolic contributing to lower seizure threshold. appreciate neuro recommendations. weaning off dilantin; titrating depakote. watch again overnight. (2) Altered mental status: 2nd to post-ictal state at time of admission resolved, mental status back to baseline (3) Elevated lactic acid level: resolved no infectious component seen (4) HTN (hypertension): Continue home medicines including Losartan 100 mg p.o. every morning, diltiazem 240 mg p.o. every morning (5) Hyperlipidemia: Atorvastatin 40 mg p.o. nightly (6) Mild dementia: noted (7) History of CVA (cerebrovascular accident): occipital lobe stroke, right side (8) Pleural effusion: chronic on the right - mildly loculated no symptoms at this time no issues at this time (9) Chronic respiratory failure with hypoxia: on home O2, 2 liters continuously no issues (10) DVT prophylaxis: lovenox daily anticipate d/c home tomorrow with family family updated at bedside Subjective patient feeling well denies any complaints w/ exception of urinary frequency; but no dysuria O2 requirement is at baseline no seizures by report worked with PT/OT today -- cleared for home Review of Systems Constitutional: no fever Respiratory: no cough and no dyspnea Cardiovascular: no chest pain Gastrointestinal: no abdominal pain, no nausea and no vomiting Physical Exam Constitutional: well developed, well nourished and + well hydrated; no acute distress and no altered mental status ENMT: external ear and nose normal, oropharynx normal Respiratory: normal respiratory effort, lungs clear to auscultation Cardiovascular: Rate/Rhythm: regular rate and regular rhythm Heart Sounds: normal S1 and normal S2; no murmur Vessels: posterior tibial pulses present and dorsalis pedis pulses present; no JVD Extremities: no edema Gastrointestinal (Abdomen): Inspection/Auscultation: + abdomen distended (bladder) and normal bowel sounds Percussion/Palpation: abdomen nontender and no hepatosplenomegaly Psychiatric: A+Ox3, euthymic affect Results & Data Vital Signs (Past 12 Hours) Vital Signs Pulse Resp BP Pulse Ox 04/28/19 15:04 79 20 165/78 H 98 Laboratory Results Laboratory Results - last 24 hr 09/05/0804/28/19 04/28/19 05:23 05:23 05:23 WBC 7.27 RBC 3.90 L Hgb 12.4 L Hct 37.5 L MCV 96.2 MCH 31.8 MCHC 33.1 RDW Std Deviation 46.1 RDW Coeff of Rae 13.1 Plt Count 198 MPV 10.2 Immature Gran % (Auto) 0.3 Neut % (Auto) 60.7 Lymph % (Auto) 16.5 Ventura % (Auto) 17.1 Eos % (Auto) 5.1 Baso % (Auto) 0.3 Immature Gran # (Auto) 0.02 Neut # (Auto) 4.42 Lymph # (Auto) 1.20 Ventura # (Auto) 1.24 H Eos # (Auto) 0.37 Baso # (Auto) 0.02 Sodium 142 Potassium 3.5 Chloride 101 Carbon Dioxide 35 H Anion Gap 6.0 BUN 21 H Creatinine 0.87 Est Cr Clr Drug Dosing 55.0 Est GFR ( Amer) 90.6 Est GFR (Non-Af Amer) 78.1 BUN/Creatinine Ratio 24.1 H Glucose 116 H Calcium 8.4 L Total Bilirubin 0.3 AST 12 L ALT 19 Alkaline Phosphatase 71 Total Protein 6.6 Albumin 2.9 L Globulin 3.7 Albumin/Globulin Ratio 0.8 L Valproic Acid Cancelled 04/28/19 06:57 WBC RBC Hgb Hct MCV MCH MCHC RDW Std Deviation RDW Coeff of Rae Plt Count MPV Immature Gran % (Auto) Neut % (Auto) Lymph % (Auto) Ventura % (Auto) Eos % (Auto) Baso % (Auto) Immature Gran # (Auto) Neut # (Auto) Lymph # (Auto) Ventura # (Auto) Eos # (Auto) Baso # (Auto) Sodium Potassium Chloride Carbon Dioxide Anion Gap BUN Creatinine Est Cr Clr Drug Dosing Est GFR ( Amer) Est GFR (Non-Af Amer) BUN/Creatinine Ratio Glucose Calcium Total Bilirubin AST ALT Alkaline Phosphatase Total Protein Albumin Globulin Albumin/Globulin Ratio Valproic Acid 44 L PG Care Time/CCT Total # of Minutes Spent Total Time Spent with Patient: Total time spent is greater than 50% in coordination of care (as documented) at patient's floor/unit and/or counseling patient: (1) Hyperlipidemia Hyperlipidemia type: mixed hyperlipidemia Qualified Code(s): E78.2 - Mixed hyperlipidemia (2) Altered mental status Altered mental status type: unspecified Qualified Code(s): R41.82 - Altered mental status, unspecified (3) HTN (hypertension) Hypertension type: essential hypertension Qualified Code(s): I10 - Essential (primary) hypertension
[2019-04-28] MEDS: ENOXAPARIN INJ 40 MG/0.4 ML SYR SQ SCH (21:17)
[2019-04-28] MEDS: ATORVASTATIN 40 MG TAB PO SCH (21:19)
[2019-04-29] MEDS: LORATADINE 10 MG TAB PO SCH (08:23)
[2019-04-29] MEDS: ESCITALOPRAM OXALATE 10 MG TAB PO SCH (08:23)
[2019-04-29] MEDS: CYANOCOBALAMIN 500 MCG TABLET (VITAMIN B-12) PO SCH (08:23)
[2019-04-29] MEDS: ASPIRIN 81 MG ECTAB PO SCH (08:24)
[2019-04-29] MEDS: LOSARTAN POTASSIUM 50 MG TAB PO SCH (08:24)
[2019-04-29] MEDS: CEROVITE ADV FORMULA TAB PO SCH (08:24)
[2019-04-29] MEDS: DIVALPROEX DELAY RELEASE 500 MG TAB PO SCH (08:25)
[2019-04-29] MEDS: POTASSIUM CHLORIDE 10 MEQ TABCR PO SCH (08:25)
[2019-04-29] MEDS: hydroCHLOROthiazide 25 MG TAB PO SCH (08:26)
[2019-04-29] MEDS: dilTIAZem HCL 240 MG CAPCR PO SCH (08:27)
--- NOTE | 2019-04-30 06:18 | Discharge Summary ---
Date of Service April 30, 2019 Admission HPI Per Admitting Provider scheduledPatient is a 88 years old male with past medical history of seizure disorder, status post CVA accident, mild dementia, diabetes mellitus type 2, anxiety, hyperlipidemia, hypertension, dependence on supplemental oxygen 2.5 L, right pleural effusion, recurrent UTI, metabolic encephalopathy, was brought by EMS to the emergency room with a complaint of altered mental status that started 3 hours ago before arrival to the emergency room. Patient's stated that patient has ongoing seizures on and off and the last seizure was couple months ago. Old seizure started after patient had stroke in 2004. Patient reports that half an hour after they left home he started to seize again. She reports that he normally stairs does not respond his feet kick and his body twitches. He was more confused than normal. Patient is poor historian and during the seizures appears to be confused and not able to answer the questions. Patient complains of patient is wheezing on having a cough. In the emergency room patient received 1 g of Keppra. But he is seizing continued. Immediate intervention was needed and we called Dr. Gray neurology who recommended to give patient 1 g of divalproex since his level from March are very low 3.4. After receiving the dose of divalproex seizure stopped Dr. Gray recommended to continue with 500 mg 3 times a day of the Divalproex. He recommended not to change the dose of phenytoin and continue with 100 mg p.o. 3 times daily. He also recommended if patient goes back to status epilepticus to transfer patient to [place]. Patient accepted this recommendation. Labs are reviewed: No cell count 9.82, hemoglobin 12.1, hematocrit 37.4, platelets 201, PT 11, INR 1.1, APTT 23.9, sodium 141, potassium 4, chloride 101, carbon dioxide 33, anion gap 7, BUN 19, creatinine 0.88, GFR 77.8, lactic acid 4.19, AST 16, ALT 22 albumin 3, globulin 4.1. Decision was made to admit patient to PCU telemetry. Discharge Exam Constitutional well developed, well nourished and + well hydrated; no acute distress and no altered mental status ENMT external ear and nose normal, oropharynx normal Respiratory normal respiratory effort, lungs clear to auscultation Cardiovascular Rate/Rhythm: regular rate and regular rhythm Heart Sounds: normal S1 and normal S2; no murmur Vessels: posterior tibial pulses present and dorsalis pedis pulses present; no JVD Extremities: no edema Gastrointestinal (Abdomen) Inspection/Auscultation: + abdomen distended (bladder) and normal bowel sounds Percussion/Palpation: abdomen nontender and no hepatosplenomegaly Psychiatric A+Ox3, euthymic affect Discharge Data Allergies Allergy/AdvReac Type Severity Reaction Status Date / Time lorazepam [From Ativan] AdvReac Mild Agitated - Verified 03/01/19 12:48 paradoxical response Consultations 04/25/19 13:17 ED Decision to Admit Stat 04/25/19 19:50 Consult Case Management - Discharge Planning Routine Consult Neurology Routine Ordered Studies 04/25/19 11:24 CT head/brain wo con Stat Hospital Course (1) Seizures: seizure d/o is 2nd to his prior occipital lobe stroke. The seizures have been poorly controlled due to subtherapeutic dilantin and depakote levels. no seizures since admission. nothing infectious or metabolic contributing to lower seizure threshold. appreciate neuro recommendations. weaning off dilantin; titrating depakote. watch again overnight. (2) Altered mental status: 2nd to post-ictal state at time of admission resolved, mental status back to baseline (3) Elevated lactic acid level: resolved no infectious component seen (4) HTN (hypertension): Continue home medicines including Losartan 100 mg p.o. every morning, diltiazem 240 mg p.o. every morning (5) Hyperlipidemia: Atorvastatin 40 mg p.o. nightly (6) Mild dementia: noted (7) History of CVA (cerebrovascular accident): occipital lobe stroke, right side (8) Pleural effusion: chronic on the right - mildly loculated no symptoms at this time no issues at this time (9) Chronic respiratory failure with hypoxia: on home O2, 2 liters continuously no issues (10) DVT prophylaxis: lovenox daily anticipate d/c home tomorrow with family family updated at bedside Discharge Plan Discharge Items Patient Disposition: Home - Home Health Services Reason For Visit: Seizures Discharge Diagnosis: Seizures - likely due to subtherapeutic levels of both anti-seizure medications. Discharge Goals: Diagnostic testing and Therapeutic intervention Activity: Resume your previous activity Non-emergency contact: Primary Care Provider and Neurologist Call non-emergency contact if: you have any medication questions, your symptoms worsen and your temperature is above 100.5 Follow-up/Referrals: Werner Beck MD [Primary Care Provider] - (see Dr Beck in 1 week) Braeden Gray MD [Physician] - (see Dr Gray or Dr Knox within 2-3 weeks) Diet: Carb Consistent or DM2 Other Ambulatory Orders: Hepatic Panel (Routine) Timeframe: 1 Week Location: Determined by Patient Ordered By: Scotty Cook Valproic Acid (Routine) Timeframe: 1 Week Location: Determined by Patient Ordered By: Scotty Cook Addtl Provider Instructions: You were admitted to [facility] due to seizures. After admission there were no further seizures fortunately. We found that both your dilantin level and your depakote level were LOW which is the likely reason for your seizures (with low medication levels the medication cannot control the seizures). You were seen by [facility] Neurology. They recommended WEANING OFF the dilantin and INCREASING THE DEPAKOTE. We did not find any evidence of infection; specifically there was no urinary tract infection. Recommendations - 1. INCREASE your depakote (valproic acid) to 1000mg twice a day. New prescription sent to your pharmacy. 2. STOP your dilantin (phenytoin). 3. STOP your claritin, also known as loratidine (this medication, although it works nicely for allergies/hay fever, can increase the chances of seizures). 4. Continue your oxygen as previous. 5. STOP the ciprofloxacin antibiotic; you do not have any active urinary tract infection. 6. In 1 week please have blood work. Ideally you have this blood work first thing in the morning BEFORE you take your morning depakote dose. These labs will be sent to Dr Beck and the neurology office. Follow-up -- see separate section Return to [facility] if -- * you have fever over 100.5 degrees * you have recurrent seizures * you have worsening fatigue, lethargy/drowsiness, etc * you have worsening shortness of breath * any other concerns Prescriptions: New divalproex 500 mg Tablet,Delayed Release (Dr/Ec) 1,000 mg PO BID Qty: 60 RF: 2 Oxygen Home Liters Per Minute .ROUTE .MEDSUPPLY Qty: 1 RF: 0 Continued escitalopram oxalate 5 mg tablet 5 mg PO DAILY Qty: 90 RF: 1 atorvastatin 40 mg tablet 40 mg PO HS Qty: 90 RF: 3 losartan 100 mg tablet 100 mg PO QAM Qty: 90 RF: 3 nitrofurantoin macrocrystal 50 mg capsule 50 mg PO QPM RF: 0 potassium chloride 10 mEq capsule, extended release 10 meq PO BID Qty: 180 RF: 3 diltiazem HCl 240 mg capsule,extended release 24hr 240 mg PO QAM RF: 0 hydrochlorothiazide 12.5 mg capsule 12.5 mg PO QAM RF: 0 aspirin [Aspir-81] 81 mg tablet,delayed release (DR/EC) 81 mg PO QAM RF: 0 metformin 500 mg tablet 1,000 mg PO BID RF: 0 multivitamin with minerals tablet 1 tab PO QAM RF: 0 diclofenac sodium [Voltaren] 1 % Gel 1 % EXT QID PRN (Reason: shoulder pain) Qty: 100 RF: 0 levalbuterol tartrate 45 mcg/actuation HFA aerosol inhaler 2 puffs INH Q6H PRN (Reason: shortness of breath) Qty: 15 RF: 0 cyanocobalamin (vitamin B-12) [Vitamin B-12] 500 mcg Tablet 500 mcg PO DAILY RF: 0 albuterol sulfate [Ventolin HFA] 90 mcg/actuation Hfa Aerosol Inhaler 2 puff INHALATION QID PRN (Reason: Shortness Of Breath Or Wheezing) RF: 0 Discontinued ciprofloxacin HCl 250 mg tablet 250 mg PO BID Qty: 14 RF: 0 divalproex 250 mg tablet extended release 24 hr 500 mg PO QAM RF: 0 loratadine 10 mg tablet 10 mg PO QAM RF: 0 phenytoin sodium extended 100 mg capsule 100 mg PO TID RF: 0 quetiapine 25 mg tablet 25 mg PO DAILY PRN (Reason: .) RF: 0 divalproex 250 mg tablet extended release 24 hr 750 mg PO HS RF: 0 Stand-Alone Forms: [facility] Discharge Orders: Discharge Order (Routine); Ordered 04/29/19 Ordered By: Scotty Cook Admission Data Admit Date/Time: 04/25/19 18:13 Attending Provider: Scotty Cook Admit Provider: Amanda Garcia Primary Care Provider: Werner Beck Other Providers: Amanda Garcia ; Braeden Gray Service: Medical Other Interventions: Discharge Summary Assessment (RN) Last Done: 04/29/19 12:34 Pending Studies at Discharge: No DC Date/Time DO NOT enter until pt leaves facility: 04/29/19 12:45
== END 2019-04-29 12:45 | disposition home health service (06) | DRG 101 ==
LOC: ED 10:39 → SUATTDRO 18:13 → 2S 18:13 → 4W 04-27 10:16
DX: J90 Pleural effusion, not elsewhere classified; Z79.82 Long term (current) use of aspirin; E78.5 Hyperlipidemia, unspecified; R74.0 Nonspecific elevation of levels of transaminase and lactic acid dehydrogenase [LDH]; J96.11 Chronic respiratory failure with hypoxia; Z82.49 Family history of ischemic heart disease and other diseases of the circulatory system; Z86.73 Personal history of transient ischemic attack (TIA), and cerebral infarction without residual deficits; Z87.891 Personal history of nicotine dependence; G40.909 Epilepsy, unspecified, not intractable, without status epilepticus; I10 Essential (primary) hypertension; F03.90 Unspecified dementia, unspecified severity, without behavioral disturbance, psychotic disturbance, mood disturbance, and anxiety; Z99.81 Dependence on supplemental oxygen

== ENCOUNTER 2019-06-09 08:59 | Inpatient (IN) ==
[2019-06-09] MEDS ORDERED: SODIUM CHLORIDE 0.9% 500 ML IV SCH (10:00)
[2019-06-09 10:27] LABS: Basophils # (auto) 0.02 K/uL (0-0.2); Basophils % (auto) 0.2 %; Eosinophils # (auto) 0.03 K/uL (0-0.5); Eosinophils % (auto) 0.4 %; Hematocrit (blood only) 39.4 % (42-52); Hemoglobin 12.7 g/dL (14.0-18.0); Immature Granulocytes # (auto) 0.04 K/uL (0.00-0.02); Immature Granulocytes % (auto) 0.5 %; Lymphocytes # (auto) 0.78 K/uL (1.2-3.4); Lymphocytes % (auto) 9.1 %; Mean Corpuscular Hemoglobin 31.3 pg (25-34); Mean Corpuscular Hgb Conc 32.2 g/dL (32-36); Monocytes # (auto) 0.54 K/uL (0.11-0.59); Monocytes % (auto) 6.3 %; Neutrophils # (auto) 7.13 K/uL (1.4-6.5); Neutrophils % (auto) 83.5 %; Platelet Count 166 K/uL (130-400); RDW Coefficient of Variation 13.5 % (11.5-14.5); RDW Standard Deviation 48.1 fL (36.4-46.3); Red Blood Count 4.06 M/uL (4.7-6.1); White Blood Count 8.54 K/uL (4.8-10.8)
[2019-06-09] MEDS ORDERED: LORazepam 0.5 MG/1 ML VIAL IV PRN (10:27)
[2019-06-09 10:41] LABS: INR 1.1 (0.9-1.1); Prothrombin Time 11.3 Seconds (9.0-12.0)
[2019-06-09 10:44] LABS: Alanine Aminotransferase 13 U/L (12-78); Aspartate Aminotransferase 9 U/L (15-37); BUN Creatinine Ratio 28.2 (10-20); Blood Urea Nitrogen 31 mg/dl (7-18); Carbon Dioxide 35 mmol/L (21-32); Chloride 98 mmol/L (98-107); Creatinine Clr Calc Pharmacy 50.8 ml/min; Est GFR (African American) 70.9; Est GFR (Non-African American) 61.1; Glucose 186 mg/dl (70-99); Magnesium 1.6 mg/dl (1.8-2.4); Potassium 3.7 mmol/L (3.5-5.1); Sodium 140 mmol/L (136-145)
--- NOTE | 2019-06-09 10:48 | XRay Report ---
XR chest 1V portable CLINICAL HISTORY: 88 years-old Male presenting with weakness. TECHNIQUE: Portable upright AP view of the chest was obtained. COMPARISON: 04/25/[address] from 03/01/2019. FINDINGS: Atherosclerosis of the aortic arch. Cardiac silhouette enlarged. Mild pulmonary vascular prominence s imilar to prior. Persistent moderate loculated right pleural effusion essentially stable from prior. No new focal opacity. No large pneumothorax. Degenerative changes of the thoracic spine. Upper abdome n normal. IMPRESSION: 1. Cardiomegaly with mild volume overload. No advanced congestive change or pulmonary edema. 2. Chronic loculated moderate right pleural effusion. Electronically signed by: Lenard Ko M.D. 06/09/2019 10:47 AM
[2019-06-09 10:55] LABS: Albumin Globulin Ratio 0.7 (0.9-2); Alkaline Phosphatase 55 U/L (45-117); Bilirubin,Total 0.5 mg/dl (0.2-1); Globulin 4.5 gm/dl (2.5-4.0); Total Protein 7.5 gm/dl (6.4-8.2); Troponin I < 0.015 ng/ml (0-0.045)
[2019-06-09] MEDS ORDERED: MAGNESIUM SULFATE / D5W 1 GM/100 ML BAG IV ONE (11:59)
--- NOTE | 2019-06-09 12:00 | CT Scan Report ---
CT OF THE HEAD WITHOUT CONTRAST CLINICAL HISTORY: Seizure. COMPARISON STUDY: Head CT April 25, 2019. CT DOSE: 844.62 mGy.cm TECHNIQUE: Helical axial images of the head were obtained without IV contrast. Automated exposure con trol was utilized for the study. A dose lowering technique was utilized adhering to the principles o f ALARA. FINDINGS: No acute intracranial hemorrhage, midline shift or mass affect is present. Ventricular syst em is stable. The basilar cisterns are patent. White matter hypodensities are unchanged and suggest s mall vessel disease. An old right occipital lobe infarct is noted. No calvarial fracture is identifie d although this exam is mildly compromised by motion artifact. IMPRESSION: 1. No acute intracranial findings. 2. Exam mildly compromised by motion artifact. Electronically signed by: Price Mei M.D. 06/09/2019 11:59 AM
--- NOTE | 2019-06-09 14:15 | History & Physical Report ---
Date of Service June 09, 2019 Assessment & Plan (1) Seizure: Hx of same Had been stable on medication change ??UTI Hx of breakthrough seizure with prior UTI, noted to be incontinent today which is unusual for pt UA, cx pending Hx of serratia UTI noted with some drug resistance 08/20/2018 Start on zosyn given hx and this can be stopped if UTI not present EEG pending CT head: neg for acute Follows with Dr. Gray, recs for keppra 500mg BID CBC, PRP, TSH, trop WNL (2) Hypomagnesemia: Replace in the ED, monitor (3) Parkinsons disease: No current medications Monitor (4) H/O stroke without residual deficits: Aspirin 81mg (5) HTN (hypertension): continue home meds (6) Anxiety: continue home meds (7) Chronic respiratory failure with hypoxia: COPD hx Continue O2 2L as at baseline continue home meds (8) Pleural effusion: Noted on CXR Respiratory status stable (9) Chronic UTI: Nitrofurantoin at baseline Hold for now (10) DM type 2 (diabetes mellitus, type 2): Holding metformin until taking reliable PO SSI PRN A1c pending (11) DVT prophylaxis: Heparin for DVT proph History of Present Illness Primary Care Provider: Reno Beck MD 88 y/o M who was brought to the ED for evaluation of seizure. Family states that pt was more tired and slept more over the weekend. He was also more weak and could not help to ambulate or stand like he usually would. Pt had been doing well with HHN/PT/OT, but this finished about 1 month ago. thought that maybe he needed more PT/OT and was going to call PCP today about this. Pt had not been confused over the weekend, but this AM he woke around 2a and was convinced it was time to get up. He was difficult to redirect about this. He generally takes care of his own medications and checks his BS in the morning, however he was having difficulty doing this. It was while he was attempting to check his BS that he had a seizure. Family states it was similar in appearance to his prior seizures. He has been very drowsy and confused since this event, which is also how his usual seizure episodes occur. Pt was a recent admission in early April for seizures. His medication was changed to depakote 1000mg BID at that time and he has had no further issues with seizures since then. He had a f/u with Dr. Gray last week and was felt to be doing fine. No changes in medications. states that pt is usually quite good about using his urinals. Today, he was noted to have not used them at all in the night and completely soaked through his Depends, which is unusual for him. He has had no complaints of dysuria. Pt denies fever, SOB, chest pain, abd pain, n/v/c/d, LE pain. Pt does get some LE swelling at baseline. Did not get morning HCTZ. Family feels that pt is more alert than prior, but still not at his usual. Allergies Allergy/AdvReac Type Severity Reaction Status Date / Time lorazepam [From Ativan] AdvReac Mild Agitated - Verified 06/09/19 09:48 paradoxical response Home Medications Home Medications Medication Instructions Recorded Confirmed Type diltiazem HCl 240 mg PO QAM 06/21/18 06/09/19 History metformin 1,000 mg PO BID 08/19/18 06/09/19 History diclofenac sodium [Voltaren] 1 % EXT QID PRN #100 gm 10/02/18 06/09/19 Rx levalbuterol tartrate 2 puffs INH Q6H PRN #15 gm 10/13/18 06/09/19 Rx escitalopram 5 mg tablet 5 mg PO DAILY #90 tab 01/22/19 06/09/19 Rx atorvastatin 40 mg tablet 40 mg PO HS #90 tab 01/27/19 06/09/19 Rx losartan 100 mg tablet 100 mg PO QAM #90 tab 01/27/19 06/09/19 Rx nitrofurantoin macrocrystal 50 mg 50 mg PO QPM 03/11/19 06/09/19 History capsule aspirin 81 mg tablet,delayed 81 mg PO QAM 03/25/19 06/09/19 History release multivitamin with minerals tablet 1 tab PO QAM 03/25/19 06/09/19 History albuterol sulfate [Ventolin HFA] 2 puff INHALATION QID PRN 04/25/19 06/09/19 History cyanocobalamin (vitamin B-12) 500 mcg PO DAILY 04/25/19 06/09/19 History [Vitamin B-12] divalproex 250 mg tablet,delayed 1,000 mg PO BID #60 tab 05/19/19 06/09/19 Rx release hydrochlorothiazide 12.5 mg capsule 12.5 mg PO DAILY #90 cap 05/19/19 06/09/19 Rx Past Med/Surg History Medical History Insomnia Mild dementia Anxiety Anemia Physical deconditioning History of CVA (cerebrovascular accident) Chronic respiratory failure with hypoxia (Chronic) Seizure disorder (Chronic) Pleural effusion (Chronic) Chronic UTI DM type 2 (diabetes mellitus, type 2) (Chronic) History of COPD Hx of emphysema Chronic UTI (Chronic) DM type 2 (diabetes mellitus, type 2) (Chronic) Dyslipidemia (Chronic) Pleural effusion, right (Chronic) Seizures (Chronic) Stroke (Resolved) Acute hyperglycemia Complex partial seizure Elevated WBC count Elevated lactic acid level Metabolic encephalopathy Surgical History History of thoracentesis (Resolved) S/P thoracentesis Family History Mother , age 93 No problems noted. Father , age 83 with some sort of cancer No problems noted. 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 Feels Safe at Home: Yes Smoking Status: Former smoker Number of Years Since Quit: 52 ; Second Hand Exposure: No ; Hx Alcohol Use: No Hx Substance Use: No Review of Systems Review of Systems: Pertinent positives and negatives reviewed in HPI--all others negative Physical Exam Constitutional: WD/WN, vitals as above Eyes: normal visual mistry by confrontation and + anicteric sclerae Neck: normal visual inspection and trachea midline Respiratory: normal respiratory effort, lungs clear to auscultation Cardiovascular: Rate/Rhythm: regular rate and regular rhythm Gastrointestinal (Abdomen): Inspection/Auscultation: abdomen not distended Percussion/Palpation: abdomen soft; abdomen nontender Musculoskeletal: Head/Neck/Chest: normocephalic and head atraumatic Trace R>L LE nonpitting edema, peripheral pulses intact Skin: no rashes, warm and dry Neurologic: awake; not confused Speech / Cognition: normal speech Psychiatric: Orientation: oriented to person, oriented to place, oriented to time (Answers May for , does not answer year) and cooperative (does take deep breaths when instructed) Speech: normal rate/rhythm/volume of speech Very groggy and difficult to arouse Answers yes/no questions clearly Speech is not slurred Results & Data Vital Signs (Past 12 Hours) Vital Signs Pulse Pulse Resp BP BP Pulse Ox 06/09/19 13:41 91 H 20 115/68 100 06/09/19 12:38 63 15 125/71 96 06/09/19 11:15 68 15 147/81 H 06/09/19 10:30 95 H 17 149/94 H 100 06/09/19 10:00 96 H 16 180/96 H 100 06/09/19 09:30 99 H 19 181/95 H 100 06/09/19 09:25 97 H 23 185/96 H 100 06/09/19 09:09 99 H 21 190/98 H 98 06/09/19 09:05 103 H 16 190/98 H 98 Diagnostic Findings CXR: loculated R pleural effusion CT head: neg for acute Code Status & VTE Plan Code Status DNR/DNI VTE Prophylaxis Plan VTE Prophylaxis will be ordered: Yes PG Care Time/CCT Total # of Minutes Spent Total Time Spent with Patient: Total time spent is greater than 50% in coordination of care (as documented) at patient's floor/unit and/or counseling patient: (1) HTN (hypertension) Hypertension type: essential hypertension Qualified Code(s): I10 - Essential (primary) hypertension (2) DM type 2 (diabetes mellitus, type 2) Diabetes mellitus penitentiary insulin use: without termite exterminator helper use Diabetes mellitus complication status: without complication Qualified Code(s): E11.9 - Type 2 diabetes mellitus without complications
--- NOTE | 2019-06-09 14:51 | Emergency Department Note ---
Entered by Genia Ray acting as a scribe for History of Present Illness General Chief complaint: Seizure Stated complaint: seizure Time Seen by Provider: 06/09/19 09:43 Source: family Limitations: other (dementia) History of Present Illness Onset (ago): day(s) (this morning) Location: head Pain Consistency: + other (epsiode) Quality: + other (seizure) Associated symptoms: + other (shaky, turned blue, breathing funny); no fever/chills and no nausea/vomiting (vomiting) The patient is an 88 year old male w/ PMHx dementia, seizures, HTN, dyslipidemia, CVA, COPD, emphysema, respiratory failure, and Diabetes who presents to the ED w/ CC of an episode of a seizure occurring this morning. The patients states that this morning she got him up from his chair in the living room and moved him to the breakfast table. She states that she used his lift chair, but the patient still seemed shaky. She reports that she decided when she sat him in the chair to tie him to it with the rubber strength bands. She reports that he was talking to her and was fine, but then suddenly started having an episode. The patients states that he started shaking and was leaned over the table. She states that he was shaking and wouldnt talk to her. She reports that he was turning blue and breathing funny. She states that she immediately called for her daughter to come to the house. She notes that the episode lasted 5-10 minutes and it took him a while to come around. The patients states that he must have had another seizure and has a history of this. She notes that he typically has a break through seizure like this when he has a UTI. She notes that she thinks it may be that because at 2 AM this morning he thought it was time to get up for the day. The patients notes that the patient did not get his medications this morning. The patient denies a change in medications, vomiting, fever, and chills. HPI and ROS limited secondary to dementia. Home Medications Home Medications Medication Instructions Recorded Confirmed Type diltiazem HCl 240 mg PO QAM 06/21/18 06/09/19 History metformin 1,000 mg PO BID 08/19/18 06/09/19 History diclofenac sodium [Voltaren] 1 % EXT QID PRN #100 gm 10/02/18 06/09/19 Rx levalbuterol tartrate 2 puffs INH Q6H PRN #15 gm 10/13/18 06/09/19 Rx escitalopram 5 mg tablet 5 mg PO DAILY #90 tab 01/22/19 06/09/19 Rx atorvastatin 40 mg tablet 40 mg PO HS #90 tab 01/27/19 06/09/19 Rx losartan 100 mg tablet 100 mg PO QAM #90 tab 01/27/19 06/09/19 Rx nitrofurantoin macrocrystal 50 mg 50 mg PO QPM 03/11/19 06/09/19 History capsule aspirin 81 mg tablet,delayed 81 mg PO QAM 03/25/19 06/09/19 History release multivitamin with minerals tablet 1 tab PO QAM 03/25/19 06/09/19 History albuterol sulfate [Ventolin HFA] 2 puff INHALATION QID PRN 04/25/19 06/09/19 History cyanocobalamin (vitamin B-12) 500 mcg PO DAILY 04/25/19 06/09/19 History [Vitamin B-12] divalproex 250 mg tablet,delayed 1,000 mg PO BID #60 tab 05/19/19 06/09/19 Rx release hydrochlorothiazide 12.5 mg capsule 12.5 mg PO DAILY #90 cap 05/19/19 06/09/19 Rx Allergies Allergy/AdvReac Type Severity Reaction Status Date / Time lorazepam [From Ativan] AdvReac Mild Agitated - Verified 06/09/19 09:48 paradoxical response Past Med/Surg History Medical History Insomnia Mild dementia Anxiety Anemia Physical deconditioning History of CVA (cerebrovascular accident) Chronic respiratory failure with hypoxia (Chronic) Seizure disorder (Chronic) Pleural effusion (Chronic) Chronic UTI DM type 2 (diabetes mellitus, type 2) (Chronic) History of COPD Hx of emphysema Chronic UTI (Chronic) DM type 2 (diabetes mellitus, type 2) (Chronic) Dyslipidemia (Chronic) Pleural effusion, right (Chronic) Seizures (Chronic) Stroke (Resolved) Acute hyperglycemia Complex partial seizure Elevated WBC count Elevated lactic acid level Metabolic encephalopathy Surgical History History of thoracentesis (Resolved) S/P thoracentesis Family History Mother , age 93 No problems noted. Father , age 83 with some sort of cancer No problems noted. 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 Physical Exam Vital Signs Vital Signs - 24 hr 06/09/19 09:05 06/09/19 09:09 06/09/19 09:25 Temperature Source Oral Sepsis Recent Fever Within 48 Hours No Sepsis Action Taken by Nursing No Action Required Pulse Rate 103 H 99 H 97 H Pulse Rate [Left] Pulse Rate from SpO2 Sensor 101 H 97 H Respiratory Rate 16 21 23 Respiratory Effort / Characteristics Non-Labored Spontaneous Respiratory Depth Normal Respiratory Pattern Blood Pressure 190/98 H 190/98 H 185/96 H Blood Pressure [Right Arm] Blood Pressure Mean 128 128 125 Blood Pressure Mean [Right Arm] Pulse Oximetry 98 98 100 Oxygen Delivery Method Nasal Cannula Oxygen Flow Rate 2 2 2 06/09/19 09:30 06/09/19 10:00 06/09/19 10:30 Temperature Source Sepsis Recent Fever Within 48 Hours Sepsis Action Taken by Nursing Pulse Rate 99 H 96 H 95 H Pulse Rate [Left] Pulse Rate from SpO2 Sensor 93 H 96 H 95 H Respiratory Rate 19 16 17 Respiratory Effort / Characteristics Respiratory Depth Respiratory Pattern Blood Pressure 181/95 H 180/96 H 149/94 H Blood Pressure [Right Arm] Blood Pressure Mean 123 124 112 Blood Pressure Mean [Right Arm] Pulse Oximetry 100 100 100 Oxygen Delivery Method Oxygen Flow Rate 2 2 2 06/09/19 11:15 06/09/19 12:38 06/09/19 13:41 Temperature Source Sepsis Recent Fever Within 48 Hours Sepsis Action Taken by Nursing Pulse Rate Pulse Rate [Left] 68 63 91 H Pulse Rate from SpO2 Sensor Respiratory Rate 15 15 20 Respiratory Effort / Characteristics Non-Labored Non-Labored Non-Labored Respiratory Depth Normal Normal Normal Respiratory Pattern Regular Regular Regular Blood Pressure Blood Pressure [Right Arm] 147/81 H 125/71 115/68 Blood Pressure Mean Blood Pressure Mean [Right Arm] 103 89 83 Pulse Oximetry 96 100 Oxygen Delivery Method Nasal Cannula Nasal Cannula Oxygen Flow Rate 2 2 GENERAL: Non-toxic. Tired in appearance. NC in place. EYE EXAM: Normal conjunctiva. PERRL, no anisocoria and EOM's grossly intact w/o pain. OROPHARYNX: Dry mucous membranes. Edentulous. NECK: Supple, no nuchal rigidity, no adenopathy, non-tender. No signs of meningismus. LUNGS: Clear to auscultation. Normal chest wall mechanics. HEART: NSR, no MRG. ABDOMEN: Abdomen soft, non-tender, normo-active bowel sounds, no masses, no rebound or guarding. BACK: No CVA TTP. SKIN: No rashes and no bruising. UPPER EXTREMITIES: Upper extremities are grossly normal. LUE resting tremor. LOWER EXTREMITIES: No pitting edema. No calf pain. NEURO EXAM: Opens eyes to voice. Intermittently follows commands. Does move all 4 extremities, but with decreased strength throughout. Course 0946: Past medical records reviewed. The patient was evaluated in room B3B. A complete history and physical exam was performed. 0958: EMR reviewed. The patient was taken off Dilantin and started on Depakote 1000 mg BID. He was seen by Dr. Gray- Neurology on 06/06. 1001: I discussed the patient's case with Dr. Gray- Neurology. He notes that the patient's Depakote level was therapeutic and recommends loading the patient with Keppra. 1202: I reevaluated the patient and updated him and his family on his test results. I discussed the treatment plan with them. They verbally agree and understand. 1300: I discussed the patient's case with Dr. [place] [facility] [place] She will evaluate the patient for further management. Administered Medications Heparin Sodium (Porcine) (Heparin Sodium (Porcine)) 5,000 units SQ Q8 VOLODYMYR Stop: 07/09/19 15:53 Last Admin: 06/09/19 17:38 Dose: 5,000 units Documented by: [id number] Cosigned by: [id number] Insulin Aspart (Novolog Flexpen) 0 units SC ACHS VOLODYMYR Stop: 07/09/19 16:29 Last Admin: 06/09/19 17:38 Dose: Not Given Documented by: [id number] Cosigned by: [id number] Discontinued Medications Sodium Chloride (Nss) 500 mls @ 999 mls/hr IV .Q31M VOLODYMYR Stop: 06/09/19 10:30 Last Infusion: 06/09/19 11:27 Dose: 0 mls/hr Documented by: [id number] Admin: 06/09/19 10:25 Dose: 999 mls/hr Documented by: [id number] Levetiracetam 1,000 mg/ (Dextrose) 110 mls @ 440 mls/hr IV NOW STA Stop: 06/09/19 10:08 Last Admin: 06/09/19 11:36 Dose: Not Given Documented by: [id number] Levetiracetam 1,000 mg/ (Dextrose) 110 mls @ 440 mls/hr IV NOW STA Stop: 06/09/19 10:16 Last Infusion: 06/09/19 11:27 Dose: 0 mls/hr Documented by: [id number] Admin: 06/09/19 10:25 Dose: 440 mls/hr Documented by: [id number] Magnesium Sulfate/Dextrose (Magnesium Sulfate / D5w) 1 gm in 100 mls @ 100 mls/hr IV ONE ONE Stop: 06/09/19 12:58 Last Infusion: 06/09/19 13:49 Dose: 0 mls/hr Documented by: [id number] Admin: 06/09/19 12:43 Dose: 100 mls/hr Documented by: [id number] Medical Decision Making Differential Diagnosis Differential diagnosis includes etiologies such as infection, hypoglycemia, electrolyte abnormalities, cardiac sources, intracerebral event, trauma, toxicologic, neurologic, as well as others were entertained. Medical Records Attestation: I reviewed the patient's medical records. Home Medications Current Medication List: was personally reviewed by wv Laboratory Data Attestation: I reviewed the patient's lab results. Result diagrams: 06/09/19 10:12 06/09/19 10:12 Lab Results 06/09/19 06/09/19 06/09/19 Range/Units 10:12 10:12 10:12 WBC 8.54 (4.8-10.8) K/uL RBC 4.06 L (4.7-6.1) M/uL Hgb 12.7 L (14.0-18.0) g/dL Hct 39.4 L (42-52) % MCV 97.0 (80-100) fL MCH 31.3 (25-34) pg MCHC 32.2 (32-36) g/dL RDW Std Deviation 48.1 H (36.4-46.3) fL RDW Coeff of Rae 13.5 (11.5-14.5) % Plt Count 166 (130-400) K/uL MPV 10.0 (7.4-10.4) fL Immature Gran % (Auto) 0.5 % Neut % (Auto) 83.5 % Lymph % (Auto) 9.1 % [place] % (Auto) 6.3 % Eos % (Auto) 0.4 % Baso % (Auto) 0.2 % Immature Gran # (Auto) 0.04 H (0.00-0.02) K/uL Neut # (Auto) 7.13 H (1.4-6.5) K/uL Lymph # (Auto) 0.78 L (1.2-3.4) K/uL [place] # (Auto) 0.54 (0.11-0.59) K/uL Eos # (Auto) 0.03 (0-0.5) K/uL Baso # (Auto) 0.02 (0-0.2) K/uL PT 11.3 (9.0-12.0) Seconds INR 1.1 (0.9-1.1) Sodium 140 (136-145) mmol/L Potassium 3.7 (3.5-5.1) mmol/L Chloride 98 (98-107) mmol/L Carbon Dioxide 35 H (21-32) mmol/L Anion Gap 7.0 (3-11) BUN 31 H (7-18) mg/dl Creatinine 1.09 (0.6-1.4) mg/dl Est Cr Clr Drug Dosing 50.8 ml/min Est GFR ( Amer) 70.9 Est GFR (Non-Af Amer) 61.1 BUN/Creatinine Ratio 28.2 H (10-20) Glucose 186 H (70-99) mg/dl Calcium 9.0 (8.5-10.1) mg/dl Magnesium 1.6 L (1.8-2.4) mg/dl Total Bilirubin 0.5 (0.2-1) mg/dl AST 9 L (15-37) U/L ALT 13 (12-78) U/L Alkaline Phosphatase 55 (45-117) U/L Troponin I < 0.015 (0-0.045) ng/ml Total Protein 7.5 (6.4-8.2) gm/dl Albumin 3.0 L (3.4-5.0) gm/dl Globulin 4.5 H (2.5-4.0) gm/dl Albumin/Globulin Ratio 0.7 L (0.9-2) TSH 1.120 (0.300-4.500) uIu/ml Imaging Data Radiologist's Impression: Radiology results as stated below per my review and the radiologist's interpretation: XR chest 1V portable CLINICAL HISTORY: 88 years-old Male presenting with weakness. TECHNIQUE: Portable upright AP view of the chest was obtained. COMPARISON: 04/25/[address] from 03/01/2019. FINDINGS: Atherosclerosis of the aortic arch. Cardiac silhouette enlarged. Mild pulmonary vascular prominence similar to prior. Persistent moderate loculated right pleural effusion essentially stable from prior. No new focal opacity. No large pneumothorax. Degenerative changes of the thoracic spine. Upper abdomen normal. IMPRESSION: 1. Cardiomegaly with mild volume overload. No advanced congestive change or pulmonary edema. 2. Chronic loculated moderate right pleural effusion. Electronically signed by: Lenard Ko M.D. 06/09/2019 10:[address] OF THE HEAD WITHOUT CONTRAST CLINICAL HISTORY: Seizure. COMPARISON STUDY: Head CT April 25, 2019. CT DOSE: 844.62 mGy.cm TECHNIQUE: Helical axial images of the head were obtained without IV contrast. Automated exposure control was utilized for the study. A dose lowering technique was utilized adhering to the principles of ALARA. FINDINGS: No acute intracranial hemorrhage, midline shift or mass affect is present. Ventricular system is stable. The basilar cisterns are patent. White matter hypodensities are unchanged and suggest small vessel disease. An old right occipital lobe infarct is noted. No calvarial fracture is identified although this exam is mildly compromised by motion artifact. IMPRESSION: 1. No acute intracranial findings. 2. Exam mildly compromised by motion artifact. Electronically signed by: Price Mei M.D. 06/09/2019 11:59 AM ECG Data Additional Comments: EKG was unobtainable secondary to patient cooperation. Ativan was ordered if needed and EKG pending as patient was trying to hit staff. When resting he is not combative. Blood Pressure Blood Pressure Findings: Elevated blood pressure Blood Pressure Disposition: Referred to patients primary care provider MDM Narrative The patient is an 88 year old male w/ PMHx dementia, seizures, HTN, dyslipidemia, CVA, COPD, emphysema, respiratory failure, and Diabetes who presents to the ED w/ CC of an episode of a seizure occurring this morning. Patient was seen and evaluated the bedside. The patient reportedly had an episode of unresponsiveness and associated shaking that was concerning for seizure. The patient does have some associated confusion. On exam the patient will intermittently follow commands and open eyes to voice. The patient does have stable vital signs. [id number] glucose was taken and was reportedly normal. Patient did have blood work completed along with a CT of the head. I did speak with the on-call neurology service as he was just seen by Dr. Gray as an outpatient on Sunday. He did state that given the patient had therapeutic Depakote levels he should continue this as an inpatient but would recommend load ing with Keppra. This was also ordered. The patient has a normal white count. Hemoglobin is 12.7. Patient's kidney function does show an element of likely dehydration. Was given some IV fluids as well as magnesium for slightly low magnesium. Patient has had no further seizure. I did speak with the family at bedside. There is also a social component as there is concern for the ability of the take care of the patient as the patient is still slightly postictal and likely would not be safe for discharge to home. I did speak the on-call hospitalist agreed to further evaluate treat the patient. Neurology service did recommend continuing the Keppra at 500 twice daily along with his Depakote. Urinalysis still pending and this is also concern is a possibility for the cause of the seizure as the family members relate that this is a chronic issue. Urine cath was ordered and pending at time of admission. Impression & Plan Seizure, Confusion, Dehydration, Hypomagnesemia Discharge Plan Visit Data *Final* Discharge Date/Time: 06/09/19 14:42 Chief Complaint: Seizure Stated Complaint: seizure ED Provider: Reinaldo Carty Discharge Problem: Seizure, Confusion, Dehydration, Hypomagnesemia Patient Disposition: Admitted As Inpatient Discharge Instructions Interventions: ED Discharge Assessment Last Done: 06/09/19 14:42 The scribe's documentation has been prepared under my direction and personally reviewed by me in its entirety. I confirm that the note above accurately reflects all work, treatment, procedures, and medical decision making performed by me.
[2019-06-09] MEDS ORDERED: ACETAMINOPHEN 325 MG TAB PO PRN (15:54)
[2019-06-09] MEDS ORDERED: DICLOFENAC SOD 1% GEL 100 GM TUBE EXT PRN (15:54)
[2019-06-09] MEDS ORDERED: ALBUTEROL HFA 8 GM INHALER INH PRN (15:54)
[2019-06-09] MEDS ORDERED: CARBOHYDRATES FOR HYPOGLYCEMIA PO PRN (15:54)
[2019-06-09] MEDS ORDERED: LEVALBUTEROL TARTRATE 15 GM HFA.AER.AD INH PRN (15:54)
[2019-06-09] MEDS ORDERED: DEXTROSE 50% 50 ML SYRINGE IV PRN (15:54)
[2019-06-09] MEDS ORDERED: GLUCOSE 10 TABS/TUBE PO PRN (15:54)
[2019-06-09] MEDS ORDERED: MAGNESIUM HYDROXIDE SUSP 30 ML UDC PO PRN (15:54)
[2019-06-09] MEDS ORDERED: GLUCOSE 40% GEL 15 GM TUBE PO PRN (15:54)
[2019-06-09] MEDS ORDERED: ONDANSETRON INJ 2 MG/ML 2 ML VIAL IV PRN (15:54)
[2019-06-09] MEDS ORDERED: PIPERACILL/TAZOBAC CONSULT ACTIVE PRN (15:54)
[2019-06-09] MEDS ORDERED: PIPERACILLIN/TAZOBACTAM 4.5 GM in DEXTROSE 5% 100 ML IV STA (15:54)
[2019-06-09] MEDS ORDERED: GLUCAGON FOR INJ 1 MG VIAL SQ PRN (15:54)
[2019-06-09] MEDS ORDERED: PIPERACILLIN/TAZOBACTAM 3.375 GM in DEXTROSE 5% 100 ML IV ONE (16:45)
[2019-06-09] MEDS: INSULIN ASPART 100 UNITS/ML 3 ML PEN SC SCH ×2 (17:38→21:03)
[2019-06-09] MEDS: HEPARIN SOD 5,000 UNIT/0.5 ML VIAL SQ SCH ×2 (17:38→21:03)
[2019-06-09] MEDS: DIVALPROEX DELAY RELEASE 500 MG TAB PO SCH (20:16)
[2019-06-09] MEDS: ATORVASTATIN 40 MG TAB PO SCH (21:03)
[2019-06-09] MEDS: PIPERACILLIN/TAZOBACTAM 3.375 GM in DEXTROSE 5% 100 ML IV SCH (22:46)
[2019-06-10] MEDS: HEPARIN SOD 5,000 UNIT/0.5 ML VIAL SQ SCH ×3 (05:49→20:40)
[2019-06-10] MEDS: PIPERACILLIN/TAZOBACTAM 3.375 GM in DEXTROSE 5% 100 ML IV SCH ×2 (06:00→14:36)
[2019-06-10 06:56] LABS: Creatinine Clr Calc Pharmacy 47.4 ml/min; Est GFR (African American) 77.7
[2019-06-10 07:13] LABS: Estimated Average Glucose 128 mg/dl; Hemoglobin A1C 6.1 % (4.5-5.6)
[2019-06-10] MEDS: INSULIN ASPART 100 UNITS/ML 3 ML PEN SC SCH ×4 (08:45→20:40)
[2019-06-10] MEDS: dilTIAZem HCL 240 MG CAPCR PO SCH (09:42)
[2019-06-10] MEDS: LOSARTAN POTASSIUM 50 MG TAB PO SCH (09:42)
[2019-06-10] MEDS: hydroCHLOROthiazide 25 MG TAB PO SCH (09:42)
[2019-06-10] MEDS: DIVALPROEX DELAY RELEASE 500 MG TAB PO SCH ×2 (09:42→20:37)
[2019-06-10] MEDS: CYANOCOBALAMIN 500 MCG TABLET (VITAMIN B-12) PO SCH (09:42)
[2019-06-10] MEDS: ASPIRIN 81 MG ECTAB PO SCH (09:43)
[2019-06-10] MEDS: MULTIVITAMIN TAB PO SCH (09:43)
[2019-06-10] MEDS: ESCITALOPRAM OXALATE ORAL SOLN 5 MG/5 ML UDP PO SCH (09:43)
--- NOTE | 2019-06-10 10:35 | Neurology Consultation ---
Date of Consultation June 10, 2019 Assessment & Plan (1) Seizure: Probable breakthrough seizure in a patient with a known history of seizure disorder in the context of a remote chronic right occipital lobe infarct. Patient should continue with Depakote DR 1000 mg every 12 hours. He was also given 1 g loading dose of Keppra IV while in the emergency department. Keppra should be continued as an adjunctive anticonvulsant. May transition to levetiracetam 500 mg p.o. every 12 hours. I would not start specific treatment for this patient's Parkinson's disease. Patient may follow-up with me in clinic in 2 to 3 weeks. Please contact me if I may be of further assistance. History of Present Illness Reason for Consultation: Recurrent seizure Requesting Physician: Sun Stroud DO Attending Physician: Jamison Ghotra History of Present Illness The patient is an 88-year-old male who is known to me. I last saw him in the outpatient neurology clinic on June 06, 2019 for a hospital follow-up for a seizure that occurred last month. There was some potential concern for an interaction between his Dilantin and Depakote at that time and his Dilantin was subsequently discontinued. His Depakote dosage was increased. A valproic acid level drawn on May 22, 2019 was 87. The patient had been clinically stable at the time of this follow-up appointment. No interval seizures reported. 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 He probably has an element of a mild chronic vascular dementia as well and an element of Parkinson's disease characterized by a pill-rolling resting tremor on the left, rigidity, as well as gait and postural instability. He is not currently taking treatment for Parkinson's disease in light of his advanced age and chronic functional decline. Mr. Bell presents to the emergency department yesterday after an observed seizure-like episode that occurred earlier that morning, observed by his . He was apparently sitting at the breakfast table at that time when he began to shake in a generalized fashion was unable to speak. He had slumped over the table at that time and apparently appeared blue and was breathing regularly as well. The episode persisted for 5 to 10 minutes and was followed by a period of confusion. The patient is largely amnestic for yesterday's seizure-like episode. He does not recall any particular aura or warning sign but does seem to be aware that he had a seizure. I had discussed his case with Dr. Carty, emergency department physician, yesterday and recommended giving a loading dose of levetiracetam, 1 g IV. He has been clinically stable during this hospitalization but perhaps remains a bit confused. I evaluated this patient after completion of a bedside EEG this morning. He denies any headache, recent illness, or new specific or focal neurological symptoms. He is a bit perseverative, however. Allergies Allergy/AdvReac Type Severity Reaction Status Date / Time lorazepam [From Ativan] AdvReac Mild Agitated - Verified 06/09/19 09:48 paradoxical response Home Medications Home Medications Medication Instructions Recorded Confirmed Type diltiazem HCl 240 mg PO QAM 06/21/18 06/09/19 History metformin 1,000 mg PO BID 08/19/18 06/09/19 History diclofenac sodium [Voltaren] 1 % EXT QID PRN #100 gm 10/02/18 06/09/19 Rx levalbuterol tartrate 2 puffs INH Q6H PRN #15 gm 10/13/18 06/09/19 Rx escitalopram 5 mg tablet 5 mg PO DAILY #90 tab 01/22/19 06/09/19 Rx atorvastatin 40 mg tablet 40 mg PO HS #90 tab 01/27/19 06/09/19 Rx losartan 100 mg tablet 100 mg PO QAM #90 tab 01/27/19 06/09/19 Rx nitrofurantoin macrocrystal 50 mg 50 mg PO QPM 03/11/19 06/09/19 History capsule aspirin 81 mg tablet,delayed 81 mg PO QAM 03/25/19 06/09/19 History release multivitamin with minerals tablet 1 tab PO QAM 03/25/19 06/09/19 History albuterol sulfate [Ventolin HFA] 2 puff INHALATION QID PRN 04/25/19 06/09/19 History cyanocobalamin (vitamin B-12) 500 mcg PO DAILY 04/25/19 06/09/19 History [Vitamin B-12] divalproex 250 mg tablet,delayed 1,000 mg PO BID #60 tab 05/19/19 06/09/19 Rx release hydrochlorothiazide 12.5 mg capsule 12.5 mg PO DAILY #90 cap 05/19/19 06/09/19 Rx Patient History Medical History Insomnia Mild dementia Anxiety Anemia Physical deconditioning History of CVA (cerebrovascular accident) Chronic respiratory failure with hypoxia (Chronic) Seizure disorder (Chronic) Pleural effusion (Chronic) Chronic UTI DM type 2 (diabetes mellitus, type 2) (Chronic) History of COPD Hx of emphysema Chronic UTI (Chronic) DM type 2 (diabetes mellitus, type 2) (Chronic) Dyslipidemia (Chronic) Pleural effusion, right (Chronic) Seizures (Chronic) Stroke (Resolved) Acute hyperglycemia Complex partial seizure Elevated WBC count Elevated lactic acid level Metabolic encephalopathy Surgical History History of thoracentesis (Resolved) S/P thoracentesis Family History Mother , age 93 No problems noted. Father , age 83 with some sort of cancer No problems noted. 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 Feels Safe at Home: Yes Smoking Status: Former smoker Second Hand Exposure: No ; Hx Alcohol Use: No Hx Substance Use: No Review of Systems Constitutional: no fever and no chills Eyes: no blind spots and no diplopia Ear, Nose, Mouth, Throat: no tinnitus and no hearing loss Respiratory: no cough and no dyspnea Cardiovascular: no chest pain and no palpitations Gastrointestinal: no nausea and no vomiting Genitourinary: no dysuria and no urinary incontinence Musculoskeletal: no myalgia Integumentary: no rash and no lesions Neurologic: as per Subjective / HPI, + tremor(s), + seizure-like activity, + confusion and + memory loss; no dizziness, no headache(s) and no abnormal speech Psychiatric: no depression and no anxiety Hematologic / Lymphatic: no easy bleeding and no easy bruising Physical Exam Physical Exam: The patient is a well-developed elderly male. He is alert and oriented to person and hospital, not to day of the week. Remote memory intact although memory for history of present illness impaired. Attention is somewhat limited. Concentration impaired. Patient is perseverative. Patient exhibits a normal spontaneous speech pattern he is able to name objects and repeat phrases. Normal comprehension of vocabulary. There is a left homonymous hemianopsia with confrontation testing of the visual mistry. Visual acuity normal. Pupils equal round reactive to light and accommodation. Eye movements normal. There is no ptosis, nystagmus, or ophthalmoplegia. Facial sensation intact. There is no facial droop or weakness. Hearing intact. Palate elevates to midline. Shoulder shrug intact. Tongue protrudes to midline. Sensation intact to all modalities in all 4 limbs. Deep tendon reflexes are intact and symmetrical for the arms and legs bilaterally. Plantar responses equivocal bilaterally. There is no dysdiadochokinesia or dysmetria with [id number] or wsau-[id number]-[id number] bilaterally. I am unable to adequately visualize the optic disks and posterior segments with direct ophthalmoscopic examination due to poor patient cooperation. Carotid pulses normal bilaterally, no bruits to auscultation. Gait and station cannot be tested due to safety concerns. Patient exhibits fairly normal muscle strength for all 4 limbs although he does have some difficulty with movement initiation for the right lower limb. There is some rigidity noted with testing of the left upper limb. No atrophy. No resting tremor observed at this time. Results & Data Vital Signs (Past 12 Hours) Vital Signs Temp Pulse Pulse Resp BP Pulse Ox 06/10/19 07:11 36.4 C L 70 18 148/90 H 97 06/10/19 03:27 36.4 C L 60 14 128/67 93 06/10/19 00:00 72 06/09/19 23:28 36.6 C 53 L 19 139/79 91 Laboratory Results WBC 8.54, hemoglobin 12.7, hematocrit 39.4, platelet count 166, sodium 140, potassium 3.7, BUN 31, creatinine 1.09, glucose 186, calcium 9.0, magnesium 1.6, AST 9, ALT 13, TSH 1.120, valproic acid level from May 22, [address] of the head obtained yesterday revealed the previous identified chronic old right occipital lobe infarct with associated encephalomalacia. No hemorrhage or acute process. I reviewed the images as well as the radiologist interpretation of this test. A routine bedside EEG completed this morning revealed a background alpha rhythm of 10 Hz with admixed generalized theta activity seen throughout the majority of the recording suggestive of a mild nonspecific encephalopathy. No epileptiform abnormalities appreciated. I reviewed the EEG tracing.
--- NOTE | 2019-06-10 11:03 | Electroencephalogram ---
EEG Procedure Note Date of Service June 10, 2019 Start / End Times Start Time: 8:58 AM End Time: 9:18 AM Referring Physician Sun Stroud DO History Recurrent seizures, history of chronic right occipital infarct, Parkinson's disease Home Medication List Home Medications Medication Instructions Recorded Confirmed Type diltiazem HCl 240 mg PO QAM 06/21/18 06/09/19 History metformin 1,000 mg PO BID 08/19/18 06/09/19 History diclofenac sodium [Voltaren] 1 % EXT QID PRN #100 gm 10/02/18 06/09/19 Rx levalbuterol tartrate 2 puffs INH Q6H PRN #15 gm 10/13/18 06/09/19 Rx escitalopram 5 mg tablet 5 mg PO DAILY #90 tab 01/22/19 06/09/19 Rx atorvastatin 40 mg tablet 40 mg PO HS #90 tab 01/27/19 06/09/19 Rx losartan 100 mg tablet 100 mg PO QAM #90 tab 01/27/19 06/09/19 Rx nitrofurantoin macrocrystal 50 mg 50 mg PO QPM 03/11/19 06/09/19 History capsule aspirin 81 mg tablet,delayed 81 mg PO QAM 03/25/19 06/09/19 History release multivitamin with minerals tablet 1 tab PO QAM 03/25/19 06/09/19 History albuterol sulfate [Ventolin HFA] 2 puff INHALATION QID PRN 04/25/19 06/09/19 History cyanocobalamin (vitamin B-12) 500 mcg PO DAILY 04/25/19 06/09/19 History [Vitamin B-12] divalproex 250 mg tablet,delayed 1,000 mg PO BID #60 tab 05/19/19 06/09/19 Rx release hydrochlorothiazide 12.5 mg capsule 12.5 mg PO DAILY #90 cap 05/19/19 06/09/19 Rx Inpatient Medication List Aspirin (Ecotrin Ectab) 81 mg PO QAM V[facility]ODYMYR Stop: 07/10/19 08:59 Last Admin: 06/10/19 09:43 Dose: 81 mg Documented by: [id number] Atorvastatin Calcium (Lipitor) 40 mg PO HS VOLODYMYR Stop: 07/09/19 20:59 Last Admin: 06/09/19 21:03 Dose: 40 mg Documented by: [id number] Cyanocobalamin (Vitamin B-12) 500 mcg PO DAILY VOLODYMYR Stop: 07/10/19 08:59 Last Admin: 06/10/19 09:42 Dose: 500 mcg Documented by: [id number] Diltiazem HCl (Cardizem Cd) 240 mg PO QAM [facility] Stop: 07/10/19 08:59 Last Admin: 06/10/19 09:42 Dose: 240 mg Documented by: [id number] Divalproex Sodium (Depakote Delay Release) 1,000 mg PO BID VOLODYMYR Stop: 07/09/19 20:59 Last Admin: 06/10/19 09:42 Dose: 1,000 mg Documented by: [id number] Admin: 06/09/19 20:16 Dose: 1,000 mg Documented by: [id number] Escitalopram Oxalate (Lexapro Soln) 5 mg PO DAILY VOLODYMYR Stop: 07/10/19 08:59 Last Admin: 06/10/19 09:43 Dose: 5 mg Documented by: [id number] Heparin Sodium (Porcine) (Heparin Sodium (Porcine)) 5,000 units SQ Q8 VOLODYM[facility] Stop: 07/09/19 15:53 Last Admin: 06/10/19 05:49 Dose: 5,000 units Documented by: [id number] Cosigned by: [id number] Admin: 06/09/19 21:03 Dose: 5,000 units Documented by: [id number] Cosigned by: [id number] Admin: 06/09/19 17:38 Dose: 5,000 units Documented by: [id number] Cosigned by: [id number] Hydrochlorothiazide (Hctz) 12.5 mg PO DAILY VOLODYMYR Stop: 07/10/19 08:59 Last Admin: 06/10/19 09:42 Dose: 12.5 mg Documented by: [id number] Levetiracetam 500 mg/ Dextrose 105 mls @ 420 mls/hr IV Q12H [facility] Stop: 07/09/19 21:59 Last Infusion: 06/10/19 10:35 Dose: 0 mls/hr Documented by: [id number] Admin: 06/10/19 10:06 Dose: 420 mls/hr Documented by: [id number] Cosigned by: [id number] Infusion: 06/09/19 22:13 Dose: 0 mls/hr Documented by: [id number] Admin: 06/09/19 21:05 Dose: 420 mls/hr Documented by: [id number] Piperacillin Sod/Tazobactam (Sod 3.375 gm/ Dextrose) 115 mls @ 28.75 mls/hr IV Q8H [facility]; Protocol Stop: 06/19/19 22:59 Last Infusion: 06/10/19 10:06 Dose: 0 mls/hr Documented by: [id number] Cosigned by: [id number] Admin: 06/10/19 06:00 Dose: 28.8 mls/hr Documented by: [id number] Infusion: 06/10/19 04:03 Dose: 0 mls/hr Documented by: [id number] Admin: 06/09/19 22:46 Dose: 28.8 mls/hr Documented by: [id number] Insulin Aspart (Novolog Flexpen) 0 units SC ACHS [facility] Stop: 07/09/19 16:29 Last Admin: 06/10/19 08:45 Dose: 1 units Documented by: [id number] Cosigned by: [id number] Admin: 06/09/19 21:03 Dose: 1 units Documented by: [id number] Cosigned by: [id number] Admin: 06/09/19 17:38 Dose: Not Given Documented by: [id number] Cosigned by: [id number] Losartan Potassium (Cozaar) 100 mg PO QAM [facility] Stop: 07/10/19 08:59 Last Admin: 06/10/19 09:42 Dose: 100 mg Documented by: [id number] Multivitamins (Multivitamin Tab) 1 tab PO QAM [facility] Stop: 07/10/19 08:59 Last Admin: 06/10/19 09:43 Dose: 1 tab Documented by: [id number] Discontinued Medications Sodium Chloride (Nss) 500 mls @ 999 mls/hr IV .Q31M [facility] Stop: 06/09/19 10:30 Last Infusion: 06/09/19 11:27 Dose: 0 mls/hr Documented by: [id number] Admin: 06/09/19 10:25 Dose: 999 mls/hr Documented by: [id number] Levetiracetam 1,000 mg/ (Dextrose) 110 mls @ 440 mls/hr IV NOW STA Stop: 06/09/19 10:08 Last Admin: 06/09/19 11:36 Dose: Not Given Documented by: [id number] Levetiracetam 1,000 mg/ (Dextrose) 110 mls @ 440 mls/hr IV NOW STA Stop: 06/09/19 10:16 Last Infusion: 06/09/19 11:27 Dose: 0 mls/hr Documented by: [id number] Admin: 06/09/19 10:25 Dose: 440 mls/hr Documented by: [id number] Magnesium Sulfate/Dextrose (Magnesium Sulfate / D5w) 1 gm in 100 mls @ 100 mls/hr IV ONE ONE Stop: 06/09/19 12:58 Last Infusion: 06/09/19 13:49 Dose: 0 mls/hr Documented by: [id number] Admin: 06/09/19 12:43 Dose: 100 mls/hr Documented by: [id number] Piperacillin Sod/Tazobactam (Sod 3.375 gm/ Dextrose) 115 mls @ 230 mls/hr IV TODAY@1645 ONE; Protocol Stop: 06/09/19 17:14 Last Infusion: 06/09/19 19:53 Dose: 0 mls/hr Documented by: [id number] Admin: 06/09/19 18:15 Dose: 230 mls/hr Documented by: [id number] Description This is a 21 electrode EEG with a single channel dedicated to limited EKG. The electrodes were placed in accordance with the International 10-20 system. There is a posterior dominant rhythm of 10 Hz which is symmetrically distributed and attenuates with eye opening. There is a normal anterior to posterior organization. Photic stimulation is unremarkable. There is a symmetric frontal beta rhythm. There is a considerable degree of admixed generalized polymorphic theta activity seen throughout the study. There is no focal slowing. No epileptiform abnormalities appreciated. Interpretation This awake EEG reveals findings suggestive of an underlying nonspecific encephalopathy. No epileptiform abnormalities observed. Clinical Correlation The observed nonspecific encephalopathy could be postictal or related to a mild underlying chronic vascular dementia. Please see today's neurology consultation for further details. [facility] EEG Procedure Codes Indication for Procedure (1) Seizure: Neurology Neurology: 21897 EEG include record awake & drowsy
--- NOTE | 2019-06-10 16:50 | Medical Student H&P ---
Date of Service June 10, 2019 Assessment & Plan (1) Seizure: Lenard is an 88 year-old male with a history of a seizure disorder who experienced a seizure 3 days after a medication modification. -likely a breakthrough seizure secondary to medication change -No electrolyte or metabolic abnormalities on presentation -history of recurrent UTIs but no UTI symptoms or signs of systemic infection on presentation -begin taking Levetiracetam 500 mg x 12 hours and continue taking Depakote 1000 mg x 12 hours -follow up with neurology as an outpatient Present on Admission?: Yes (2) Chronic UTI: -prophylactic Zosyn discontinued -continue daily Nitrofurantion 50 mg capsules as an outpatient Present on Admission?: Yes (3) Parkinsons disease: He is currently untreated for Parkinson Disease but exhibits several hypokinetic features that may benefit from pharmacologic therapy - reports postural instability, shuffling gait, rigidity, and resting tremor -consider starting Sinemet Present on Admission?: Yes History of Present Illness Chief Complaint: Seizure Primary Care Provider: Reno Beck MD Lenard is an 88-year-old male with a history of a seizure disorder, right occipital lobe infarct with chronic homonymous hemianopia, Parkinson Disease, and UTI-induced AMS. History was obtained from the patient's . On 06/06, Lenard met with his neurologist due to multiple breakthrough seizures within the last month. At that time, phenytoin was discontinued and his dose of valproate was increased. Three days later, on 06/09, Lenard experienced another seizure. His states that he was trying to perform a finger prick to check his blood sugar before dinner. However, she says that he was struggling to perform the task. She tried to help him, but she noticed some irregular movement of his extremities. She said that he also was not acting like himself. She says that he then face planted into their dining room table while seated and developed increased uncontrolled movements. She says that the motor activity lasted 5-10 minutes before stopping. She endorses observing a post-ictal state of confusion and decreased consciousness. She called 911 and Lenard was taken to [facility] ED. In the ER, Lenard was given 1 g IV levetiracetam and IV magnesium. He was then admitted for further monitoring. He was started on piperacillin/tazobactam due to his history of UTI-induced AMS. Lenard takes daily 50 mg capsules of nitrofurantoin due to this history. A head CT was performed, which was negative for any acute intracranial findings. Lenard is not currently exhibiting any seizure-like activity, but he is difficult to arouse and engage in a conversation at this time. Allergies Allergy/AdvReac Type Severity Reaction Status Date / Time lorazepam [From Ativan] AdvReac Mild Agitated - Verified 06/09/19 09:48 paradoxical response Home Medications Home Medications Medication Instructions Recorded Confirmed Type diltiazem HCl 240 mg PO QAM 06/21/18 06/09/19 History metformin 1,000 mg PO BID 08/19/18 06/09/19 History diclofenac sodium [Voltaren] 1 % EXT QID PRN #100 gm 10/02/18 06/09/19 Rx levalbuterol tartrate 2 puffs INH Q6H PRN #15 gm 10/13/18 06/09/19 Rx escitalopram 5 mg tablet 5 mg PO DAILY #90 tab 01/22/19 06/09/19 Rx atorvastatin 40 mg tablet 40 mg PO HS #90 tab 01/27/19 06/09/19 Rx nitrofurantoin macrocrystal 50 mg 50 mg PO QPM 03/11/19 06/09/19 History capsule aspirin 81 mg tablet,delayed 81 mg PO QAM 03/25/19 06/09/19 History release multivitamin with minerals tablet 1 tab PO QAM 03/25/19 06/09/19 History albuterol sulfate [Ventolin HFA] 2 puff INHALATION QID PRN 04/25/19 06/09/19 History cyanocobalamin (vitamin B-12) 500 mcg PO DAILY 04/25/19 06/09/19 History [Vitamin B-12] divalproex 250 mg tablet,delayed 1,000 mg PO BID #60 tab 05/19/19 06/09/19 Rx release hydrochlorothiazide 12.5 mg capsule 12.5 mg PO DAILY #90 cap 05/19/19 06/09/19 Rx amoxicillin-pot clavulanate 1 tab PO BID #18 tab 06/10/19 Rx levetiracetam 500 mg PO Q12H 30 Days #60 tab 06/10/19 Rx losartan 100 mg tablet 100 mg PO QAM #90 tab 06/10/19 Rx Past Med/Surg History Medical History Insomnia Mild dementia Anxiety Anemia Physical deconditioning History of CVA (cerebrovascular accident) Chronic respiratory failure with hypoxia (Chronic) Seizure disorder (Chronic) Pleural effusion (Chronic) Chronic UTI DM type 2 (diabetes mellitus, type 2) (Chronic) History of COPD Hx of emphysema Chronic UTI (Chronic) DM type 2 (diabetes mellitus, type 2) (Chronic) Dyslipidemia (Chronic) Pleural effusion, right (Chronic) Seizures (Chronic) Stroke (Resolved) Acute hyperglycemia Complex partial seizure Elevated WBC count Elevated lactic acid level Metabolic encephalopathy Surgical History History of thoracentesis (Resolved) S/P thoracentesis Family History Mother , age 93 No problems noted. Father , age 83 with some sort of cancer No problems noted. 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 Evidence of chronic periventricular white matter changes and right occipital lobe infarct CXR- chronic loculated right pleural effusion. Cardiomegaly with volume overload. Code Status & VTE Plan VTE Prophylaxis Plan VTE Prophylaxis will be ordered: Yes Supervising Attestation This is a medical student note, please disregard.
[2019-06-10] MEDS: LACTOBACILLUS ACIDOPHILUS (FLORANEX) TAB PO SCH ×2 (18:21→20:36)
[2019-06-10] MEDS: ATORVASTATIN 40 MG TAB PO SCH (20:37)
--- NOTE | 2019-06-10 23:44 | Hospitalist Progress Note ---
Date of Service June 10, 2019 Assessment & Plan (1) Seizure: Hx of same Had been stable on medication change Doubt urinary tract infection. Will stop antibitoics. Hx of breakthrough seizure with prior UTI, however we have a cause of seizures given that patient recently had a change to his anti-seizure medications. UA, cx not completed. Hx of serratia UTI noted with some drug resistance 08/20/2018 EEG no seizure activity noted CT head: neg for acute Follows with Dr. Gray, recs for keppra 500mg BID CBC, PRP, TSH, trop WNL (2) Hypomagnesemia: Replace in the ED, monitor improved. (3) Parkinsons disease: No current medications Monitor (4) H/O stroke without residual deficits: Aspirin 81mg (5) HTN (hypertension): continue home meds (6) Anxiety: continue home meds (7) Chronic respiratory failure with hypoxia: COPD hx Continue O2 2L as at baseline continue home meds (8) Pleural effusion: Noted on CXR Respiratory status stable (9) Chronic UTI: Nitrofurantoin at baseline Hold for now (10) DM type 2 (diabetes mellitus, type 2): Holding metformin until taking reliable PO SSI PRN A1c at goal, below 6.5 (11) DVT prophylaxis: Heparin for DVT proph Will keep patient in hospital PATIENT REMAINS lethargic. Will continue to monitor. May require placement. Iliana Weinberg is not currently exhibiting any seizure-like activity, but he is difficult to arouse and engage in a conversation at this time. His family is at bedside and is concerned that patient is too lethargic to be discharged. Review of Systems Review of Systems: Unobtainable due to reduced consciousness Physical Exam Physical Exam: Constitutional: WD/WN, vitals as above Eyes: normal visual mistry by confrontation and + anicteric sclerae Neck: normal visual inspection and trachea midline Respiratory: normal respiratory effort, lungs clear to auscultation Cardiovascular: Rate/Rhythm: regular rate and regular rhythm Gastrointestinal (Abdomen): Inspection/Auscultation: abdomen not distended Percussion/Palpation: abdomen soft; abdomen nontender Musculoskeletal: Head/Neck/Chest: normocephalic and head atraumatic Trace R>L LE nonpitting edema, peripheral pulses intact Skin: no rashes, warm and dry Neurologic: awake; not confused Speech / Cognition: normal speech Psychiatric: Orientation: oriented to person, oriented to place, oriented to time, difficult to arouse, Speech: normal rate/rhythm/volume of speech Results & Data Vital Signs (Past 12 Hours) Vital Signs Temp Pulse Resp BP Pulse Ox 06/10/19 19:15 36.6 C 73 20 151/73 H 97 06/10/19 15:53 96 06/10/19 15:35 36.4 C L 68 20 125/55 L 87 L PG Care Time/CCT Total # of Minutes Spent Total Time Spent with Patient: Total time spent is greater than 50% in coordination of care (as documented) at patient's floor/unit and/or counseling patient: (1) DM type 2 (diabetes mellitus, type 2) Diabetes mellitus complication status: without complication Diabetes mellitus terminal supervisor insulin use: without terminal supervisor use Qualified Code(s): E11.9 - Type 2 diabetes mellitus without complications (2) HTN (hypertension) Hypertension type: essential hypertension Qualified Code(s): I10 - Essential (primary) hypertension
[2019-06-11] MEDS: HEPARIN SOD 5,000 UNIT/0.5 ML VIAL SQ SCH ×3 (05:45→21:36)
[2019-06-11 06:27] LABS: Creatinine Clr Calc Pharmacy 44.7 ml/min; Est GFR (African American) 72.5; Est GFR (Non-African American) 62.5
[2019-06-11] MEDS: INSULIN ASPART 100 UNITS/ML 3 ML PEN SC SCH ×4 (07:48→21:35)
[2019-06-11] MEDS: LOSARTAN POTASSIUM 50 MG TAB PO SCH (07:49)
[2019-06-11] MEDS: CYANOCOBALAMIN 500 MCG TABLET (VITAMIN B-12) PO SCH (07:49)
[2019-06-11] MEDS: MULTIVITAMIN TAB PO SCH (07:50)
[2019-06-11] MEDS: DIVALPROEX DELAY RELEASE 500 MG TAB PO SCH ×2 (07:50→21:04)
[2019-06-11] MEDS: dilTIAZem HCL 240 MG CAPCR PO SCH (07:50)
[2019-06-11] MEDS: LACTOBACILLUS ACIDOPHILUS (FLORANEX) TAB PO SCH ×4 (07:50→21:03)
[2019-06-11] MEDS: ASPIRIN 81 MG ECTAB PO SCH (07:50)
[2019-06-11] MEDS: hydroCHLOROthiazide 25 MG TAB PO SCH (07:51)
[2019-06-11] MEDS: ESCITALOPRAM OXALATE ORAL SOLN 5 MG/5 ML UDP PO SCH (07:51)
--- NOTE | 2019-06-11 11:19 | Medical Student Progress Note ---
Date of Service June 11, 2019 Assessment & Plan (1) Seizure: Lenard is an 88 year-old male with a history of a seizure disorder who experienced a seizure 3 days after a medication modification. -likely a breakthrough seizure secondary to medication change -No electrolyte or metabolic abnormalities on presentation -history of recurrent UTIs but no UTI symptoms or signs of systemic infection on presentation -begin taking Levetiracetam 500 mg x 12 hours and continue taking Depakote 1000 mg x 12 hours -follow up with neurology as an outpatient (2) Chronic UTI: -prophylactic Zosyn discontinued -continue daily Nitrofurantion 50 mg capsules as an outpatient (3) Parkinsons disease: He is currently untreated for Parkinson Disease but exhibits several hypokinetic features that may benefit from pharmacologic therapy - reports postural instability, shuffling gait, rigidity, and resting tremor -consider starting Sinemet (4) HTN (hypertension): Blood pressure is 177/90 despite being on HCTZ and losartan. -renal function normal (Cr 1.07) -continue monitoring and encourage home blood pressure checks -consider adding a third medication or increasing dosage to achieve a BP <150/90 based on his age if it remains elevated Hypertension type: essential hypertension Qualified Code(s): I10 - Essential (primary) hypertension Supervising Attestation This is a medical student note. Please disregard. Subjective Lenard is an 88-year-old male who presented to [facility] on 06/09 following a breakthrough seizure that occurred three days after a change to his anticonvulsant medications. He denies any memory of the seizure, and he states that the only thing that he remembers is his telling him that he had a seizure when he was already in the hospital. Lenard states that he is feeling much less fatigued compared to yesterday. He says that he slept very well and ate most of his breakfast this morning. He does not that he had diarrhea with some mild abdominal pain yesterday, but he says that the pain has stopped and he has not had another bowel movement since then. Lenard admits to a few instances of incontinence while in the hospital, but he denies any dysuria or increased frequency. He also denies any new seizure activity. At home, Lenard states that he struggles to ambulate around his house. He uses a walker, but he admits to poor posture and a shuffling gait. He does not endorse any recent falls or trauma. He says that he is unable to cook or clean, and states that he does not leave the house very often. He denies any noticeable decline in his memory, and he says that he is able to remember what he did the previous day and recall recent conversations he has had with his . He denies any tremor in his extremities at rest, and he denies any recent change in vision. Review of Systems Constitutional: no fever, no chills, no sweats, no fatigue and no anorexia Respiratory: no cough, no dyspnea and no sputum production Cardiovascular: no chest pain, no dyspnea, no orthopnea, no palpitations and no edema Gastrointestinal: + diarrhea/loose stools; no abdominal pain, no bloating, no nausea, no vomiting, no change in stools, no constipation and no blood in stools Genitourinary: + urinary incontinence; no dysuria, no urinary frequency and no urinary hesitancy Neurologic: + gait abnormality, + unsteadiness and + memory loss (from the seizure onset to regaining orientation in the hospital); no falls, no tremor(s), no abnormal movements, no seizure-like activity, no dizziness, no headache(s) and no confusion Physical Exam Constitutional: WD/WN, vitals as above cooperative; no acute distress Eyes: PERRL, conjunctivae normal, anicteric sclerae normal accommodation ENMT: external ear and nose normal, oropharynx normal Ears: + hearing impairment Respiratory: normal respiratory effort, lungs clear to auscultation Cardiovascular: RRR, no murmur, no edema Heart Sounds: normal S1 and normal S2 Gastrointestinal (Abdomen): normal bowel sounds, soft, nontender, no hepatosplenomegaly Musculoskeletal: no cyanosis or clubbing, extremities motor strength 5/5 (Right hip flexors not assessed due to inability to initiate movement) Skin: no rashes, warm and dry Neurologic: patellar DTR's 2+ bilat, sensation intact and PERRL, EOMI, accommodation nl, no face palsy, no dysarthria CN's II-XI intact bilaterally Speech / Cognition: no anomia, no expressive aphasia and no receptive aphasia Motor/Sensory: no tremor and no pronator drift Cranial Nerves: + hearing impairment (Decreased hearing bilaterally) Coordination: normal gntswj-af-ajvl test, normal hdwq-[id number]-pxrn test and normal rapid alternating movements Gait not assessed due to postural instability and safety concern. Left homonymous hemianopsia. Recent memory impaired. Unable to recall 3 words. Decreased concentration. Unable to spell "WORLD" backward or perform serial sevens. Psychiatric: Orientation: alert, oriented to person and oriented to place; + not oriented to time (Unable to name day of the week or date but knows correct month) Results & Data Vital Signs (Past 12 Hours) Vital Signs Temp Pulse Pulse Resp BP Pulse Ox 06/11/19 07:45 36.7 C 65 16 177/90 H 97 06/11/19 03:26 36.4 C L 67 17 137/70 91 06/11/19 00:00 73 06/10/19 23:55 36.6 C 68 17 133/75 96
[2019-06-11 20:03] LABS: Appearance Urine Clear (Clear); Bacteria Urine Automated Negative (Negative); Bilirubin Urine Negative (Negative); Blood Urine 1+ (Negative); Cast Urine Automated 0 /lpf (0-5); Color Urine Yellow; Glucose Urine UA Negative (Negative); Ketones Urine Negative (Negative); Leukocyte Esterase Urine 1+ (Negative); Nitrite Urine Negative (Negative); Protein Urine Negative (Negative); Specific Gravity Urine 1.012 (1.000-1.030); Urobilinogen Urine Negative (Negative)
[2019-06-11] MEDS: ATORVASTATIN 40 MG TAB PO SCH (21:03)
--- NOTE | 2019-06-11 23:29 | Hospitalist Progress Note ---
Date of Service June 11, 2019 Assessment & Plan (1) Seizure: Hx of same Had been stable on medication change Doubt urinary tract infection, as no urinary symptoms here. Will stop antibiotics as patient had developed diarrhea. Appears bowel movements have improved. Hx of breakthrough seizure with prior UTI, cause of seizures likely due to patient recently having a change to his anti-seizure medications. UA, cx not completed. Hx of serratia UTI noted with some drug resistance 08/20/2018 EEG no seizure activity noted CT head: neg for acute Follows with Dr. Gray, recs for keppra 500mg BID CBC, PRP, TSH, trop WNL (2) Hypomagnesemia: Replace in the ED, monitor improved. (3) Parkinsons disease: No current medications Monitor (4) H/O stroke without residual deficits: Aspirin 81mg (5) HTN (hypertension): continue home meds (6) Anxiety: continue home meds (7) Chronic respiratory failure with hypoxia: COPD hx Continue O2 2L as at baseline continue home meds (8) Pleural effusion: Noted on CXR Respiratory status stable (9) Chronic UTI: Nitrofurantoin at baseline Hold for now (10) DM type 2 (diabetes mellitus, type 2): Holding metformin until taking reliable PO SSI PRN A1c at goal, below 6.5 (11) DVT prophylaxis: Heparin for DVT proph Patient require SNF placement as per PT/OT will monitor. Iliana Weinberg is an 88-year-old male who presented to [facility] on 06/09 following a breakthrough seizure that occurred three days after a change to his anticonvulsant medications. He denies any memory of the seizure, and he states that the only thing that he remembers is his telling him that he had a seizure when he was already in the hospital. Lenard states that he is feeling much less fatigued compared to yesterday. He says that he slept very well and ate most of his breakfast this morning. He does not that he had diarrhea with some mild abdominal pain yesterday, but he says that the pain has stopped and he has not had another bowel movement since then. Lenard admits to a few instances of incontinence while in the hospital, but he denies any dysuria or increased frequency. He also denies any new seizure activity. At home, Lenard states that he struggles to ambulate around his house. He uses a walker, but he admits to poor posture and a shuffling gait. He does not endorse any recent falls or trauma. He says that he is unable to cook or clean, and states that he does not leave the house very often. He denies any noticeable decline in his memory, and he says that he is able to remember what he did the previous day and recall recent conversations he has had with his . He denies any tremor in his extremities at rest, and he denies any recent change in vision. Review of Systems Review of Systems: All systems reviewed & are unremarkable except as noted in HPI & below Physical Exam Physical Exam: Constitutional: WD/WN, vitals as above cooperative; no acute distress Eyes: PERRL, conjunctivae normal, anicteric sclerae normal accommodation ENMT: external ear and nose normal, oropharynx normal Ears: + hearing impairment Respiratory: normal respiratory effort, lungs clear to auscultation Cardiovascular: RRR, no murmur, no edema Heart Sounds: normal S1 and normal S2 Gastrointestinal (Abdomen): normal bowel sounds, soft, nontender, no hepatosplenomegaly Musculoskeletal: no cyanosis or clubbing, extremities motor strength 5/5 (Right hip flexors not assessed due to inability to initiate movement) Skin: no rashes, warm and dry Neurologic: patellar DTR's 2+ bilat, sensation intact and PERRL, EOMI, accommodation nl, no face palsy, no dysarthria CN's II-XI intact bilaterally Speech / Cognition: no anomia, no expressive aphasia and no receptive aphasia Motor/Sensory: no tremor and no pronator drift Cranial Nerves: + hearing impairment (Decreased hearing bilaterally) Coordination: normal kjyoov-jv-kjzs test, normal yhcj-vc-dizy test and normal rapid alternating movements Gait not assessed due to postural instability and safety concern. Left homonymous hemianopsia. Recent memory impaired. Unable to recall 3 words. Decreased concentration. Unable to spell "WORLD" backward or perform serial sevens. Psychiatric: Orientation: alert, oriented to person and oriented to place; + not oriented to time (Unable to name day of the week or date but knows correct month) Results & Data Vital Signs (Past 12 Hours) Vital Signs Temp Pulse Pulse Resp BP Pulse Ox 06/11/19 19:47 60 06/11/19 19:12 36.5 C 61 17 145/72 H 100 06/11/19 15:41 60 06/11/19 15:08 36.3 C L 60 18 145/78 H 98 PG Care Time/CCT Total # of Minutes Spent Total Time Spent with Patient: Total time spent is greater than 50% in coordination of care (as documented) at patient's floor/unit and/or counseling patient: (1) DM type 2 (diabetes mellitus, type 2) Diabetes mellitus complication status: without complication Diabetes mellitus termite exterminator insulin use: without termite exterminator use Qualified Code(s): E11.9 - Type 2 diabetes mellitus without complications (2) HTN (hypertension) Hypertension type: essential hypertension Qualified Code(s): I10 - Essential (primary) hypertension
[2019-06-12] MEDS: HEPARIN SOD 5,000 UNIT/0.5 ML VIAL SQ SCH ×2 (05:44→13:46)
[2019-06-12 06:35] LABS: Creatinine Clr Calc Pharmacy 53.8 ml/min; Est GFR (African American) 89.7; Est GFR (Non-African American) 77.4
[2019-06-12] MEDS: CYANOCOBALAMIN 500 MCG TABLET (VITAMIN B-12) PO SCH (08:15)
[2019-06-12] MEDS: LACTOBACILLUS ACIDOPHILUS (FLORANEX) TAB PO SCH ×2 (08:16→12:01)
[2019-06-12] MEDS: LOSARTAN POTASSIUM 50 MG TAB PO SCH (08:16)
[2019-06-12] MEDS: DIVALPROEX DELAY RELEASE 500 MG TAB PO SCH (08:16)
[2019-06-12] MEDS: MULTIVITAMIN TAB PO SCH (08:16)
[2019-06-12] MEDS: hydroCHLOROthiazide 25 MG TAB PO SCH (08:17)
[2019-06-12] MEDS: dilTIAZem HCL 240 MG CAPCR PO SCH (08:17)
[2019-06-12] MEDS: ASPIRIN 81 MG ECTAB PO SCH (08:17)
[2019-06-12] MEDS: ESCITALOPRAM OXALATE ORAL SOLN 5 MG/5 ML UDP PO SCH (08:17)
[2019-06-12] MEDS: INSULIN ASPART 100 UNITS/ML 3 ML PEN SC SCH ×2 (08:18→12:01)
--- NOTE | 2019-06-12 09:20 | Medical Student Progress Note ---
Date of Service June 12, 2019 Assessment & Plan (1) Seizure: Lenard is an 88 year-old male with a history of a seizure disorder who experienced a seizure 3 days after a medication modification. -likely a breakthrough seizure secondary to medication change -No electrolyte or metabolic abnormalities on presentation -history of recurrent UTIs but no UTI symptoms or signs of systemic infection on presentation -begin taking Levetiracetam 500 mg x 12 hours and continue taking Depakote 1000 mg x 12 hours -follow up with neurology as an outpatient (2) Parkinsons disease: He is currently untreated for Parkinson Disease but exhibits several hypokinetic features that may benefit from pharmacologic therapy - reports postural instability, shuffling gait, rigidity, and resting tremor -consider starting Sinemet (3) HTN (hypertension): Blood pressure is 161/78 despite being on HCTZ and losartan. -renal function normal (Cr 0.89) -continue monitoring and encourage home blood pressure checks -encouraged low-sodium diet -consider adding a third medication or increasing dosage to achieve adequate BP control Hypertension type: essential hypertension Qualified Code(s): I10 - Essential (primary) hypertension (4) Constipation: The patient experienced an episode of non-bloody diarrhea on 06/09, which occurred soon after administration of piperacillin/tazobactam. Due to concern for possible C. difficile, lactobacillus acidophilus was prescribed on 06/10. Ondansetron was also given for concerns of nausea on 06.09. Since then, he has not had a bowel movement. The constipation may be secondary to Zofran administration. -Discontinue ondansetron -Magnesium hydroxide 30 ml PRN started on 06/09. Continue PRN. Constipation type: unspecified constipation type Qualified Code(s): K59.00 - Constipation, unspecified Present on Admission?: No (5) Abnormal urinalysis: Lenard has a history of recurrent UTIs and a urinalysis showed 1+ leukocyte esterase and elevated white blood cells, epithelial cells, and red blood cells. Lenard notes increased urinary frequency, but he denies dysuria or CVA tenderness. -Urine bacteria negative. Urine culture pending. -No antibiotics indicated at this time but pursue Abx treatment if the patient becomes symptomatic (6) Declining mobility: Transitioning Lenard to [facility] for rehabilitation after discharged has been discussed with him and his family. - and daugther requested [facility] due to previous positive experience -request sent and accepted Present on Admission?: Yes Supervising Attestation Medical student note. Iliana Weinberg is an 88-year-old male with a history of CVA, seizure disorder, untreated Parkinson disease, mild dementia, T2DM, and recurrent UTIs who was admitted on 06/09 following a breakthrough seizure that occurred 3 days after a change to his anticonvulsant medications. Lenard continues to denies any seizure activity or other new neurologic deficits since his admission. He also states that he has not tried to stand on his own due to concerns with his balance and stability. He states that he had diarrhea two days ago with vague abdominal pain, but he has not another bowel movement since then. Today, he denies any abdominal pain, bloating, N/V, or anorexia. He states that he ate most of his breakfast this morning. Lenard also denies any dysuria, nocturia, hesitancy, or urinary incontinence, but he does admit to increased frequency. He states that he does not remember how often he has been urinating but he feels like it is more than normal for him. He denies any fever, chills, night sweats, or fatigue. Lenard states that he talked to his , daughter, and a social media community manager about going to [facility] after he is discharged, and he is supportive of this plan. He states that he had a good experience there before and that he wants to do whatever he can to get stronger and more mobile. Review of Systems Constitutional: as per Subjective / HPI Respiratory: no cough, no dyspnea and no pain on inspiration Cardiovascular: no chest pain, no lightheadedness and no edema Gastrointestinal: as per Subjective / HPI Genitourinary: + as per Subjective / HPI Neurologic: as per Subjective / HPI Physical Exam Constitutional: WD/WN, vitals as above cooperative; no acute distress Respiratory: normal respiratory effort, lungs clear to auscultation Cardiovascular: RRR, no murmur, no edema Heart Sounds: normal S1 and normal S2 Vessels: no carotid bruit Gastrointestinal (Abdomen): normal bowel sounds, soft, nontender, no hepatosplenomegaly Inspection/Auscultation: abdomen not distended Skin: no rashes, warm and dry Genitourinary: no CVA tenderness Results & Data Vital Signs (Past 12 Hours) Vital Signs Temp Pulse Pulse Resp BP Pulse Ox 06/12/19 08:00 36.4 C L 93 H 16 161/78 H 96 06/12/19 03:34 36.5 C 66 18 155/88 H 99 06/12/19 00:50 61 06/12/19 00:00 36.7 C 60 17 150/79 H 98 Laboratory Results POC glucose: 101 Cr: 0.89 Urinalysis: 1+ leukocyte esterase 10-30 WBC/hpf 5-10 RBC/hpf 10-20 epithelial cells/lpf Negative urine nitrite Urine pH 7.0
[2019-06-12 12:25] VITALS: O2SAT 97
[2019-06-12 15:33] VITALS: BP 117/69; TEMP 97.9
[2019-06-12 16:20] VITALS: PULSE 72
--- NOTE | 2019-06-17 16:54 | Discharge Summary ---
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 History was obtained from the patient's . On 06/06, Lenard met with his neurologist due to multiple breakthrough seizures within the last month. At that time, phenytoin was discontinued and his dose of valproate was increased. Three days later, on 06/09, Lenard experienced another seizure. His states that he was trying to perform a finger prick to check his blood sugar before dinner. However, she says that he was struggling to perform the task. She tried to help him, but she noticed some irregular movement of his extremities. She said that he also was not acting like himself. She says that he then face planted into their dining room table while seated and developed increased uncontrolled movements. She says that the motor activity lasted 5-10 minutes before stopping. She endorses observing a post-ictal state of confusion and decreased consciousness. She called 911 and Lenard was taken to [facility] ED. In the ER, Lenard was given 1 g IV levetiracetam and IV magnesium. He was then admitted for further monitoring. He was started on piperacillin/tazobactam due to his history of UTI-induced AMS. Lenard takes daily 50 mg capsules of nitrofurantoin due to this history. A head CT was performed, which was negative for any acute intracranial findings. Lenard is not currently exhibiting any seizure-like activity, but he is difficult to arouse and engage in a conversation at this time. Principal Diagnosis seizure Discharge Exam Constitutional: WD/WN, vitals as above cooperative; no acute distress Eyes: PERRL, conjunctivae normal, anicteric sclerae normal accommodation ENMT: external ear and nose normal, oropharynx normal Ears: + hearing impairment Respiratory: normal respiratory effort, lungs clear to auscultation Cardiovascular: RRR, no murmur, no edema Heart Sounds: normal S1 and normal S2 Gastrointestinal (Abdomen): normal bowel sounds, soft, nontender, no hepatosplenomegaly Musculoskeletal: no cyanosis or clubbing, extremities motor strength 5/5 (Right hip flexors not assessed due to inability to initiate movement) Skin: no rashes, warm and dry Neurologic: patellar DTR's 2+ bilat, sensation intact and PERRL, EOMI, accommodation nl, no face palsy, no dysarthria CN's II-XI intact bilaterally Speech / Cognition: no anomia, no expressive aphasia and no receptive aphasia Motor/Sensory: no tremor and no pronator drift Cranial Nerves: + hearing impairment (Decreased hearing bilaterally) Coordination: normal vyolsi-bp-zoee test, normal jbzc-[id number] test and normal rapid alternating movements Gait not assessed due to postural instability and safety concern. Left homonymous hemianopsia. Recent memory impaired. Unable to recall 3 words. Decreased concentration. Unable to spell "WORLD" backward or perform serial sevens. Psychiatric: Orientation: alert, oriented to person and oriented to place; + not oriented to time (Unable to name day of the week or date but knows correct month) Discharge Data Allergies Allergy/AdvReac Type Severity Reaction Status Date / Time lorazepam [From Ativan] AdvReac Mild Agitated - Verified 06/09/19 09:48 paradoxical response Consultations 06/09/19 13:00 ED Decision to Admit Stat 06/09/19 15:54 Consult Case Management - Discharge Planning Routine Consult Neurology Routine Ordered Studies 06/09/19 10:52 CT head/brain wo con Stat Hospital Course (1) Seizure: Hx of same Had been stable on medication change Doubt urinary tract infection, as no urinary symptoms here. Will stop antibiotics as patient had developed diarrhea. Appears bowel movements have improved. Hx of breakthrough seizure with prior UTI, cause of seizures likely due to patient recently having a change to his anti-seizure medications. UA, cx not completed. Hx of serratia UTI noted with some drug resistance 08/20/2018 EEG no seizure activity noted CT head: neg for acute Follows with Dr. Gray, recs for keppra 500mg BID CBC, PRP, TSH, trop WNL (2) Parkinsons disease: No current medications Monitor (3) HTN (hypertension): continue home meds (4) Constipation: H/O stroke without residual deficits: Aspirin 81mg Anxiety: continue home meds Chronic respiratory failure with hypoxia: COPD hx Continue O2 2L as at baseline continue home meds Pleural effusion: Noted on CXR Respiratory status stable Chronic UTI: Nitrofurantoin at baseline; held during hospital stay DM type 2 (diabetes mellitus, type 2): Holding metformin until taking reliable PO SSI PRN A1c at goal, below 6.5 DVT prophylaxis: Heparin for DVT proph Patient require SNF placement as per PT/OT (5) Abnormal urinalysis: (6) Declining mobility: Total Time Total Time Spent Total Time Spent (In Minutes): 32 Total Time Includes: Examination of the Patient, Discharge Planning and Medication Reconciliation Discharge Plan Discharge Items Patient Disposition: Drug & Alcohol Rehab Reason For Visit: RECURRENT SEIZURE Discharge Diagnosis: recurrent seizure Activity: Resume your previous activity Non-emergency contact: Primary Care Provider Call non-emergency contact if: you have any medication questions Follow-up/Referrals: Werner Beck MD [Primary Care Provider] - Diet: Carb Consistent or DM2 Addtl Attending Provider Instructions: Will recommend Followup with PCP in 1-2 weeks F/U with Neurology in 2 to 3 week Disregard antibiotics as patient did not have any Urine analysis while he was h ere. And his urinary symptoms improved. If his urinary symptoms return, contact PCP to start antibiotics. Pending Studies at Discharge: No Stand-Alone Forms: [employer], Smoking Cessation Medications and DC Order Prescriptions: New levetiracetam 500 mg tablet 500 mg PO Q12H 30 Days Qty: 60 RF: 0 Continued escitalopram oxalate 5 mg tablet 5 mg PO DAILY Qty: 90 RF: 1 atorvastatin 40 mg tablet 40 mg PO HS Qty: 90 RF: 3 divalproex 250 mg tablet,delayed release (DR/EC) 1,000 mg PO BID Qty: 60 RF: 2 hydrochlorothiazide 12.5 mg capsule 12.5 mg PO DAILY Qty: 90 RF: 3 losartan 100 mg tablet 100 mg PO QAM Qty: 90 RF: 3 diltiazem HCl 240 mg capsule,extended release 24hr 240 mg PO QAM RF: 0 aspirin [Aspir-81] 81 mg tablet,delayed release (DR/EC) 81 mg PO QAM RF: 0 metformin 500 mg tablet 1,000 mg PO BID RF: 0 multivitamin with minerals tablet 1 tab PO QAM RF: 0 diclofenac sodium [Voltaren] 1 % Gel 1 % EXT QID PRN (Reason: shoulder pain) Qty: 100 RF: 0 levalbuterol tartrate 45 mcg/actuation HFA aerosol inhaler 2 puffs INH Q6H PRN (Reason: shortness of breath) Qty: 15 RF: 0 cyanocobalamin (vitamin B-12) [Vitamin B-12] 500 mcg Tablet 500 mcg PO DAILY RF: 0 albuterol sulfate [Ventolin HFA] 90 mcg/actuation Hfa Aerosol Inhaler 2 puff INHALATION QID PRN (Reason: Shortness Of Breath Or Wheezing) RF: 0 No Action nitrofurantoin macrocrystal 50 mg capsule 50 mg PO DAILY Qty: 30 RF: 5 Discharge Orders: Discharge Order (Routine); Ordered 06/12/19 Ordered By: Jamison Lamar/Other Patient Handouts: UTI Admission Data Admit Date/Time: 06/09/19 14:04 Attending Provider: Jamison Ghotra Admit Provider: Sun Stroud Primary Care Provider: Werner Beck Other Providers: Braeden Gray Other Interventions: Discharge Summary Assessment (RN) Last Done: 06/12/19 14:21 DC Date/Time DO NOT enter until pt leaves facility: 06/12/19 17:12
== END 2019-06-12 17:12 | disposition alcohol treatment (31) | DRG 101 ==
LOC: ED 08:59 → SUATTDRO 14:04 → 2S 14:04